=== PATIENT | male | born 1950 | race Caucasian/White ===

== ENCOUNTER 2021-08-04 14:28 | Inpatient (IN) ==
[2021-08-04] MEDS ORDERED: SOLU-Medrol 125 MG VIAL IVP ONE (14:54)
[2021-08-04] MEDS ORDERED: DUONEB 0.5 MG/3 MG (3 mL) NEB ONE ×2 (14:54→15:20)
--- NOTE | 2021-08-04 14:58 | DR.SOBA ---
HPI Time Seen Time Seen by Provider: 08/04/21 14:45 HPI Comment HPI Comment: PATIENT IS 71YR OLD MALE IN ER WITH INCREASING SOB ESPECIALLY ON EXERTION TIMES 3 DAYS. HE IS POSITIVE FOR COVID 19 VIRUS AND HAVE RECEIVED REGEN-COV 2 DAYS AGO. HE CONTINUE TO HAVE INCREASING SYMPTOMS. NO FEVER. COUGHING WITH SMALL AMOUNT OF SPUTUM. PATIENT IS ON PREDNISONE AND ANTIBIOTICS CURRENTLY. Complaints Chief Complaint Doctors Comments: INCREASING SOB TIMES 3 DAYS. COVID POSITIVE. COVID-19 Coronavirus risk:travel/contact w/high risk person: No Has patient experienced Coronavirus symptoms: Yes Coronavirus symptoms experienced: Shortness of Breath Reviewed Nurses Notes Reviewed: Yes Source History Provided: Patient and Family Member Mode of Arrival Mode of Arrival: Ambulatory Timing Onset of Chief Complaint: 08/01/21 Duration Duration: Days Context Onset:: At Rest PE Risk Factors:: None History of:: None Currently on:: Neither Modifying Factors Worsens:: Exertion Improves:: Rest Associated Signs and Symptoms Associated Signs and Symptoms: Cough If Cough Cough: Nonproductive PMH PMH Past Surgical History: Yes Surgical History: Ortho Surgery ROS Review of Systems Constitutional: See HPI, Weakness and Fatigue; negative Fever Eyes: No Symptoms Reported and See HPI ENTM: See HPI; negative Nose Discharge and Nose Congestion Respiratoy: See HPI, Non-Productive Cough and Short of Breath; negative Wheezing Cardiovascular: See HPI and Chest Pain; negative Edema Gastrointestinal/Abdominal: No Symptoms Reported and See HPI; negative Abdominal Pain, Diarrhea and Vomiting Genitourinary: No Symptoms Reported and See HPI; negative Dysuria, Frequency and Hematuria Neurological: Headache and Weakness; negative Dizziness Musculoskeletal: No Symptoms Reported and See HPI; negative Back Pain and Muscle Pain Integumentary: No Symptoms Reported and See HPI; negative Change in Color, Rash and Juandice Hematologic/Lymphatic: No Symptoms Reported; negative Easy Bruising Endocrine: No Symptoms Reported; negative Increased Thirst and Increased Urine Psychiatric: No Symptoms Reported and See HPI All Other Systems: Reviewed and Negative PE Vital Signs Vitals: Temperature 97.5 F Pulse Rate 78 Respiratory Rate 26 Blood Pressure [Right Arm] 129/69 Blood Pressure 141/73 O2 Sat by Pulse Oximetry 98 General Limitations: No Limitations General Appearance: Alert and In Distress Head Head Exam: Normal Inspection Eyes Eye exam: Normal Appearance and PERRL; negative Scleral Icterus and Conjunctival Injection ENT ENT Exam: Normal Exam, Normal External Ear Exam and TM's Normal Bilaterally Neck Neck Exam: Normal Inspection and Trachea Midline; negative Tenderness and Lymphadenopathy Chest Chest Inspection: Normal Inspection and Symmetric Chest Wall Rise; negative Tenderness Respiratory Respiratory Exam: Normal Lung Sounds Bilat and Respiratory Distress; negative Accessory Muscle Use and Chest Wall Tenderness Respiratory Exam: Bilateral: Rhonchi, Right: Crackles and Lower: Rhonchi Cardiovascular Cardiovascular Exam: Regular Rate, Normal Rhythm and Normal Heart Sounds; negative Systolic Murmur and Diastolic Murmur Abdominal Exam Abdominal Exam: Normal Inspection, Normal Bowel Sounds and Soft; negative Tenderness Extremities Extremities Exam: Normal Inspection and Normal Capillary Refill Back Back Exam: Normal Inspection; negative (R) CVA Tenderness and (L) CVA Tenderness Neurologic Neurological Exam: Alert and Oriented X3; negative Motor Sensory Deficit Psychiatric Psychiatric Exam: Normal Affect and Normal Mood Skin Skin Exam: Warm, Dry, Intact and Normal Color MDM Differential Diagnosis Differential Diagnosis: Bronchitis, Mycardial Infarction, Pneumonia, Pneumothorax, Pulmonary embolism, Respiratory Insufficiency, Sinusitis and URI COURSE Treatment Treatment: SEE ORDERS. NS IV IN ER. ZOSYN 3.375MG IV. REMDISIVIR LOADING DOSE IN ER. PATIENT ADMITTED FOR FURTHER MANAGEMENT. Education/Counseling Education/Counseling: Patient and Family Educated On: Diagnosis ROR Labs Reviewed Laboratory Results Reviewed?: Yes Result Diagrams: 08/06/21 04:50 08/06/21 04:50 Laboratory: WBC 10.6 X10^3/uL (3.6-10.0) H 08/04/21 15:20 RBC 4.87 X10^6/uL (4.7-6.0) 08/04/21 15:20 Hgb 15.0 g/dL (13.5-18.0) 08/04/21 15:20 Hct 43.9 % (42.0-54.0) 08/04/21 15:20 MCV 90.1 fL (80.0-100.0) 08/04/21 15:20 MCH 30.7 pg (27.0-34.0) 08/04/21 15:20 MCHC 34.1 g/dL (33.0-35.0) 08/04/21 15:20 RDW 13.1 % (11.6-16.5) 08/04/21 15:20 Plt Count 183 X10^3/uL (150.0-450.0) 08/04/21 15:20 MPV 9.1 fL (7.4-11.0) 08/04/21 15:20 Neut % (Auto) 87.5 % (42.0-75.0) H 08/04/21 15:20 Lymph % (Auto) 6.4 % (21.0-51.0) L 08/04/21 15:20 [place] % (Auto) 5.4 % (0.0-13.0) 08/04/21 15:20 Eos % (Auto) 0.0 % (0.9-2.9) L 08/04/21 15:20 Baso % (Auto) 0.7 % (0.2-1.0) 08/04/21 15:20 Neut # (Auto) 9.3 x10^3/uL (2.2-4.8) H 08/04/21 15:20 Lymph # (Auto) 0.7 X10^3/uL (1.3-2.9) L 08/04/21 15:20 [place] # (Auto) 0.6 x10^3/uL (0.3-0.8) 08/04/21 15:20 Eos # (Auto) 0.0 x10^3/uL (0.0-0.2) 08/04/21 15:20 Baso # (Auto) 0.1 X10^3/uL (0.0-0.1) 08/04/21 15:20 Absolute Nucleated RBC 0.1 /100WBC 08/04/21 15:20 D-Dimer 1.20 ug/ml (0.0-0.57) H* 08/04/21 15:20 Sample Site Lra 08/04/21 15:14 ABG pH 7.480 (7.35-7.45) H 08/04/21 15:14 ABG pCO2 39.0 mmHg (35.0-45.0) 08/04/21 15:14 ABG pO2 67.0 mmHg (80.0-100.0) L 08/04/21 15:14 ABG HCO3 29.0 mmol/L (22-26) H 08/04/21 15:14 ABG O2 Saturation 94.0 % (90-100) 08/04/21 15:14 ABG Base Excess 5.2 mmol/L (-2.0-2.0) H 08/04/21 15:14 Nakul Test Pos 08/04/21 15:14 A-a Gradient 34.0 mmHg 08/04/21 15:14 FiO2 21.0 08/04/21 15:14 Blood Gas Comments Pt karla well eb 08/04/21 15:14 Sodium 140 mmol/L (136-145) 08/04/21 15:20 Corrected Sodium 141 mmol/L (136-145) 08/04/21 15:20 Potassium 4.2 mmol/L (3.5-5.1) 08/04/21 15:20 Chloride 104 mmol/L (98-107) 08/04/21 15:20 Carbon Dioxide 32.5 mmol/L (21-32) H 08/04/21 15:20 BUN 17 mg/dL (7-18) 08/04/21 15:20 Creatinine 0.93 mg/dL (0.70-1.30) 08/04/21 15:20 Est GFR (MDRD) Af Amer > 60 (>60) 08/04/21 15:20 Est GFR (MDRD) Non-Af > 60 (>60) 08/04/21 15:20 Glucose 158 mg/dL (65-99) H 08/04/21 15:20 Calcium 8.8 mg/dL (8.5-10.1) 08/04/21 15:20 Corrected Calcium 9.4 mg/dL (8.5-10.1) 08/04/21 15:20 Ferritin 2766 ng/mL (26-388) H 08/04/21 15:20 Total Bilirubin 1.20 mg/dL (0.2-1.0) H 08/04/21 15:20 AST 176 Units/L (15-37) H 08/04/21 15:20 ALT 159 Units/L (12-78) H 08/04/21 15:20 Alkaline Phosphatase 78 Units/L (46-116) 08/04/21 15:20 Creatine Kinase 167 Units/L (39-308) 08/04/21 15:20 CK-MB (CK-2) 2.0 ng/mL (0-4.0) 08/04/21 15:20 CK/CKMB % Calc 1.2 % (<4) 08/04/21 15:20 Troponin I < 0.02 ng/mL (0-1.5) 08/04/21 15:20 C-Reactive Protein 11.30 mg/L (0-3.0) H 08/04/21 15:20 B-Natriuretic Peptide 63.4 pg/mL (0-79) 08/04/21 15:20 Total Protein 7.4 g/dL (6.4-8.2) 08/04/21 15:20 Albumin 3.2 g/dL (3.4-5.0) L 08/04/21 15:20 Globulin 4.2 g/dL (2.5-4.5) 08/04/21 15:20 Albumin/Globulin Ratio 0.8 Ratio (1.1-2.1) L 08/04/21 15:20 XRAY XRAY Interpreted by: Radiologist (REPORTS NOTED AND DISCUSSED WITH PATIENT AND SON.) and Self EKG Rate: 60 [place]: Normal Rhythm: NSR Block: None Hypertrophy: None ST: Old, Ant, Lat and Infarct Opioid Opioid Risk Tool Age (James box if 16-45): No History of Preadolescent Sexual Abuse: No Total: 0 Total Score Risk Category: Low Risk Copyright: [facility] predicting aberrant behaviors Diagnosis Discharge Problem: Acute respiratory distress, COVID-19 virus infection Pneumonia Qualifiers: Pneumonia type: due to unspecified organism Laterality: bilateral Lung location: lower lobe of lung Qualified Code(s): J18.9 - Pneumonia, unspecified organism
[2021-08-04] MEDS ORDERED: SOLU-Medrol 125 MG VIAL ONE (15:12)
[2021-08-04 15:16] LABS: ABG BASE EXCESS 5.2 mmol/L (-2.0-2.0)
[2021-08-04 15:17] LABS: ABG ALLEN TEST POS
--- NOTE | 2021-08-04 15:21 | RAD ---
HISTORYCOVID and pneumonia 2-3 days ago, got the antibody infusion the next day, was put on PO abx and steroids, but is not feeling any better, reports feeling weak and gets very sob on any exertion. Also dysphagia Relevant Clinical InformationSTUDYCHEST, 1 VIEWCOMPARISONSeptember 2020.FINDINGSThere is stable to mildly increased bilateral periphery and inferior pulmonary opacities concerning for infection. Cardiomegaly is stable. There is interstitial edema. No pneumothorax is seen..IMPRESSIONStable to mildly increased bilateral pulmonary opacities.Electronically signed by: HOUSTON NORWOOD (Aug 04, 2021 15:21:38)
[2021-08-04 15:34] LABS: BASOPHILS # (AUTO) 0.1 X10^3/uL (0.0-0.1); BASOPHILS % (AUTO) 0.7 % (0.2-1.0); HEMATOCRIT 43.9 % (42.0-54.0); LYMPHOCYTES # (AUTO) 0.7 X10^3/uL (1.3-2.9); LYMPHOCYTES % (AUTO) 6.4 % (21.0-51.0); MEAN CORPUSCULAR HEMOGLOBIN 30.7 pg (27.0-34.0); MEAN CORPUSCULAR HGB CONC 34.1 g/dL (33.0-35.0); MEAN CORPUSCULAR VOLUME 90.1 fL (80.0-100.0); MEAN PLATELET VOLUME 9.1 fL (7.4-11.0); MONOCYTES # (AUTO) 0.6 x10^3/uL (0.3-0.8); MONOCYTES % (AUTO) 5.4 % (0.0-13.0); NEUTROPHILS # (AUTO) 9.3 x10^3/uL (2.2-4.8); NEUTROPHILS % (AUTO) 87.5 % (42.0-75.0); PLATELET COUNT 183 X10^3/uL (150.0-450.0); RED BLOOD COUNT 4.87 X10^6/uL (4.7-6.0); RED CELL DISTRIBUTION WIDTH 13.1 % (11.6-16.5); WHITE BLOOD COUNT 10.6 X10^3/uL (3.6-10.0)
[2021-08-04 15:58] LABS: ALANINE AMINOTRANSFERASE 159 Units/L (12-78); ALBUMIN 3.2 g/dL (3.4-5.0); ALKALINE PHOSPHATASE 78 Units/L (46-116); ASPARTATE AMINO TRANSFERASE 176 Units/L (15-37); BLOOD UREA NITROGEN 17 mg/dL (7-18); CALCIUM 8.8 mg/dL (8.5-10.1); CARBON DIOXIDE 32.5 mmol/L (21-32); CHLORIDE 104 mmol/L (98-107); CKMB % 1.2 % (<4); COR CA(FOR HYPOALB) 9.4 mg/dL (8.5-10.1); COR NA(FOR HYPERGLY) 141 mmol/L (136-145); CREATINE KINASE 167 Units/L (39-308); CREATININE 0.93 mg/dL (0.70-1.30); SODIUM 140 mmol/L (136-145); TOTAL PROTEIN 7.4 g/dL (6.4-8.2); TROPONIN I < 0.02 ng/mL (0-1.5); eGFR NON BLACK RACES > 60 (>60)
[2021-08-04] MEDS ORDERED: NS 100 ML IV 100 ML ONE (16:28)
--- NOTE | 2021-08-04 18:55 | CT ---
HISTORYPt was dx with COVID and pneumonia 2-3 days ago, got the antibody infusion the next day, was put on PO abx and steroids, but is not feeling any better.STUDYCTA CHESTCOMPARISONChest radiograph 08/04/2021TECHNIQUEMultiple CT axial images of the chest were obtained with IV contrast. Coronal and sagittal images were reconstructed. 3D reconstructions using axial MIPS imaging was performed and reviewed. Dose reduction techniques included Automated Exposure Control (AEC) and adjustment of mA and kV.Stenoses are measured using NASCET criteria.FINDINGSPulmonary arteries are identified to segmental branches. There are no pulmonary emboli.Cardiomegaly is present.Atherosclerotic calcifications are present in the coronary arteries. The pulmonary artery and aorta have a normal caliber. Mediastinal lymphadenopathy is increased in number. Probably reactive from the patient's lung disease.The thyroid has a normal size and configuration. No axillary mass or significant axillary lymphadenopathy is identified.Bilateral patchy and some confluent areas of ground-glass opacity are present typical for bronchopneumonia. No pleural effusion or pneumothorax.Calcified gallstones are present with no inflammation.Degenerative changes are present in the spine.IMPRESSION1. No pulmonary emboli2. Bronchopneumonia with reactive mediastinal lymphadenopathy3. Cardiomegaly with CAD4. CholelithiasisElectronically signed by: Perico Quintero (Aug 04, 2021 18:53:39)
[2021-08-04] MEDS ORDERED: ZOSYN VIAL 3.375 GRAMS 3.375 G in NS 50 ML IV + SPIKE MINIBAG* 50 ML IV ONE (19:23)
[2021-08-04] MEDS ORDERED: ZOSYN VIAL 3.375 GRAMS IV ONE (19:37)
[2021-08-04] MEDS ORDERED: NS 50 ML IV + SPIKE MINIBAG* 50 ML IV ONE (19:37)
[2021-08-04] MEDS ORDERED: REMDESIVIR 200 MG in NS 250 ML IV 250 ML IV ONE (23:02)
[2021-08-04] MEDS: NS 1000 ML 1,000 ML IV SCH (23:46)
[2021-08-05] MEDS: ASCORBIC ACID INJ MULTI-DOSE VIAL 1,500 MG in NS 100 ML IV 100 ML IV SCH ×4 (04:50→20:25)
[2021-08-05 05:15] LABS: BASOPHILS % (AUTO) 0.6 % (0.2-1.0); HEMATOCRIT 38.2 % (42.0-54.0); HEMOGLOBIN 13.1 g/dL (13.5-18.0); LYMPHOCYTES # (AUTO) 0.7 X10^3/uL (1.3-2.9); LYMPHOCYTES % (AUTO) 11.6 % (21.0-51.0); MEAN CORPUSCULAR HEMOGLOBIN 30.6 pg (27.0-34.0); MEAN CORPUSCULAR HGB CONC 34.4 g/dL (33.0-35.0); MEAN CORPUSCULAR VOLUME 89.1 fL (80.0-100.0); MONOCYTES # (AUTO) 0.6 x10^3/uL (0.3-0.8); MONOCYTES % (AUTO) 8.8 % (0.0-13.0); NEUTROPHILS # (AUTO) 5.1 x10^3/uL (2.2-4.8); PLATELET COUNT 176 X10^3/uL (150.0-450.0); RED BLOOD COUNT 4.29 X10^6/uL (4.7-6.0); RED CELL DISTRIBUTION WIDTH 13.1 % (11.6-16.5); WHITE BLOOD COUNT 6.4 X10^3/uL (3.6-10.0)
[2021-08-05 05:32] LABS: ALANINE AMINOTRANSFERASE 139 Units/L (12-78); ALBUMIN 2.6 g/dL (3.4-5.0); ALKALINE PHOSPHATASE 66 Units/L (46-116); ASPARTATE AMINO TRANSFERASE 94 Units/L (15-37); BLOOD UREA NITROGEN 16 mg/dL (7-18); CALCIUM 8.3 mg/dL (8.5-10.1); CARBON DIOXIDE 26.7 mmol/L (21-32); CHLORIDE 106 mmol/L (98-107); COR CA(FOR HYPOALB) 9.4 mg/dL (8.5-10.1); COR NA(FOR HYPERGLY) 142 mmol/L (136-145); CREATININE 1.04 mg/dL (0.70-1.30); SODIUM 140 mmol/L (136-145); TOTAL PROTEIN 6.2 g/dL (6.4-8.2); eGFR NON BLACK RACES > 60 (>60)
[2021-08-05] MEDS: SOLU-Medrol 40 MG VIAL IVP SCH ×3 (06:34→22:15)
[2021-08-05] MEDS: ZOSYN VIAL 3.375 GRAMS 3.375 G in NS 50 ML IV + SPIKE MINIBAG* 50 ML IV SCH ×3 (06:34→22:15)
[2021-08-05] MEDS ORDERED: BROVANA ONE (08:48)
[2021-08-05] MEDS ORDERED: PULMICORT NEB TX 0.5 MG NEB ONE (08:48)
[2021-08-05] MEDS ORDERED: BROVANA IN SCH (09:00)
[2021-08-05] MEDS ORDERED: VITAMIN A PO SCH (09:00)
[2021-08-05] MEDS ORDERED: PULMICORT NEB TX 0.5 MG NEB SCH (09:00)
[2021-08-05] MEDS ORDERED: VITAMIN D (1.25MG) PO SCH (09:00)
[2021-08-05] MEDS: LOVENOX INJ 30 MG SYR SC SCH ×2 (09:06→20:26)
[2021-08-05] MEDS: ZINC SULFATE PO SCH ×2 (09:07→20:31)
[2021-08-05] MEDS: PEPCID TAB 40 MG PO SCH ×2 (09:09→20:27)
[2021-08-05] MEDS: TRICOR TAB 160 MG PO SCH (09:09)
[2021-08-05] MEDS: NORVASC TAB 5 MG PO SCH (09:09)
[2021-08-05] MEDS: BROVANA IN SCH ×2 (09:33→21:00)
[2021-08-05] MEDS: PULMICORT NEB TX 0.5 MG NEB SCH ×2 (09:33→21:00)
[2021-08-05] MEDS: ROBITUSSIN DM PO SCH ×4 (09:45→20:31)
[2021-08-05] MEDS: TUSSIONEX PENNKINETIC SUSP PO PRN (11:25)
--- NOTE | 2021-08-05 13:55 | DR.H&P ---
H&P - History & Physical for Day of: H&P Date: 08/04/21 - Chief Complaint Chief Complaint: COVID 19+, SOB, COUGHING AND WEAKNESS - History of Present Illness History of Present Illness: PT IS 71 WM ER ADMISSION AFTER PRESENTING WITH CO SOB, COVID 19+. PT HAS BEEN SICK FOR ~1 WEEK. PT HAS BEEN ON PO STEROIDS AND LEVAQUIN FOR 5 DAYS. PT HAD REGENCOV INFUSION LAST WednesdayAUG 01. PT HAS PMH OF HTN, PT DENIES ANY KNOWN CAD. PT ADMITTED FOR TREATMENT OF ACUTE ILLNESS. - Past Medical History Past Medical History: Arthritis, Hypertension - Past Surgical History Surgical History: Ortho Surgery - Family History Family Medical History: Diabetes Mellitus, [place], Hypertension - Social History Does patient currently use any type of tobacco product: Yes Have you used tobacco products in the last 12 months: No Type of Tobacco Use: Smokeless Alcohol Use: None Drug Use: None - Medications Home Medications: No Known Drug Allergies Allergy (Verified 08/04/21 14:38) CONTINUE taking the following medications amlodipine 5 mg PO DAILY 08/04/21 [History] - Review of Systems Constitutional: Fever, Chills, Weakness, Malaise Eyes: No Symptoms Reported ENT: Nose Congestion, Throat Pain Respiratory: Shortness of Breath, SOB with Excertion, Wheezing Cardiovascular: Chest Pain Gastrointestinal: Nausea Genitourinary: No Symptoms Reported Musculoskeletal: Back Pain, Leg Pain Skin: No Symptoms Reported Neurological: Weakness - Physical Exam Vital Signs: Temperature 98.1 F Pulse Rate [Left Radial] 64 Pulse Rate 79 Respiratory Rate 18 Blood Pressure [Left Arm] 140/72 Blood Pressure [Right Arm] 129/69 Blood Pressure 153/70 O2 Sat by Pulse Oximetry 97 Oriented: Normal Eyes: Normal Ear: Normal Nose: Normal Throat: Normal Respiratory: Wheezes Throughout, RLL Diminished, LLL Diminished Cardiovascular: Normal, Edema : Normal Auscultation: Bowel Sounds: Normal Palpation: Normal Tenderness: Epigastric, Mild Skin: Decreased Turgur Musculoskeletal: Right, Left, Hip, Back:Thoracic, Back:Lumbar, Tender Psychiatric: Anxiety Affect: Anxious Speech Pattern: Clear, Appropriate - Assessment/Plan (1) Acute hypoxemic respiratory failure due to COVID-19 Status: Acute Plan: ADMIT, IV REMDESIVIR. IV SOLU MEDROL, IV ATBX. IV HYDRATION, CARIDAC MONITORING. BP CONTROL, PPI THERAPY. LOVENOX DVT PREVENTION. AM CXR AND ABG, SUPPLMENTAL O2, DUO NEBS (2) Hypertension Status: Acute (3) Arthritis Status: Acute (4) Pneumonia due to COVID-19 virus Status: Acute - Allergies Allergies/Adverse Reactions: Allergies Allergy/AdvReac Type Severity Reaction Status Date / Time No Known Drug Allergies Allergy Verified 08/04/21 14:38
[2021-08-05] MEDS: PROTONIX INJ 40 MG VIAL IVP SCH ×2 (15:12→20:28)
[2021-08-05] MEDS: LEVAQUIN PREMIX IV 500 MG 500 MG/100 ML BAG IV SCH (18:18)
[2021-08-05] MEDS: REMDESIVIR 100 MG in NS 100 ML IV + SPIKE MINIBAG* 120 ML IV SCH (20:29)
[2021-08-05] MEDS: NS 1000 ML 1,000 ML IV SCH (23:41)
[2021-08-06] MEDS: TUSSIONEX PENNKINETIC SUSP PO PRN
[2021-08-06] MEDS: ASCORBIC ACID INJ MULTI-DOSE VIAL 1,500 MG in NS 100 ML IV 100 ML IV SCH ×4 (02:26→20:34)
[2021-08-06 05:15] LABS: BASOPHILS % (AUTO) 0.4 % (0.2-1.0); HEMATOCRIT 36.5 % (42.0-54.0); HEMOGLOBIN 12.7 g/dL (13.5-18.0); LYMPHOCYTES # (AUTO) 0.7 X10^3/uL (1.3-2.9); LYMPHOCYTES % (AUTO) 8.9 % (21.0-51.0); MEAN CORPUSCULAR HEMOGLOBIN 30.9 pg (27.0-34.0); MEAN CORPUSCULAR HGB CONC 34.7 g/dL (33.0-35.0); MEAN CORPUSCULAR VOLUME 88.9 fL (80.0-100.0); MEAN PLATELET VOLUME 9.1 fL (7.4-11.0); MONOCYTES # (AUTO) 0.5 x10^3/uL (0.3-0.8); MONOCYTES % (AUTO) 7.2 % (0.0-13.0); NEUTROPHILS # (AUTO) 6.2 x10^3/uL (2.2-4.8); NEUTROPHILS % (AUTO) 83.5 % (42.0-75.0); PLATELET COUNT 195 X10^3/uL (150.0-450.0); RED CELL DISTRIBUTION WIDTH 13.1 % (11.6-16.5); WHITE BLOOD COUNT 7.4 X10^3/uL (3.6-10.0)
[2021-08-06] MEDS: SOLU-Medrol 40 MG VIAL IVP SCH ×3 (05:32→22:16)
[2021-08-06 05:34] LABS: ALANINE AMINOTRANSFERASE 166 Units/L (12-78); ALBUMIN 2.5 g/dL (3.4-5.0); ALKALINE PHOSPHATASE 64 Units/L (46-116); ASPARTATE AMINO TRANSFERASE 82 Units/L (15-37); BLOOD UREA NITROGEN 16 mg/dL (7-18); CALCIUM 8.2 mg/dL (8.5-10.1); CARBON DIOXIDE 26.6 mmol/L (21-32); CHLORIDE 105 mmol/L (98-107); COR CA(FOR HYPOALB) 9.4 mg/dL (8.5-10.1); COR NA(FOR HYPERGLY) 141 mmol/L (136-145); CREATININE 1.05 mg/dL (0.70-1.30); SODIUM 139 mmol/L (136-145); eGFR NON BLACK RACES > 60 (>60)
[2021-08-06 05:37] LABS: ABG ALLEN TEST POS; ABG BASE EXCESS 3.5 mmol/L (-2.0-2.0); ABG HCO3 27.8 mmol/L (22-26)
[2021-08-06] MEDS: ZOSYN VIAL 3.375 GRAMS 3.375 G in NS 50 ML IV + SPIKE MINIBAG* 50 ML IV SCH ×3 (05:54→22:16)
--- NOTE | 2021-08-06 06:05 | RAD ---
HISTORYCOVID-19 pneumoniaSTUDYAP [id number]/04/2021FINDINGSMild stable cardiomegaly. Persistent and slightly increasing bilateral airspace involvement with no evidence for complicating pneumothorax or pleural effusion.IMPRESSIONSlight interval progression of bilateral pneumonia.Electronically signed by: MALLORIE CUTLER (Aug 06, 2021 06:03:12)
[2021-08-06] MEDS ORDERED: LASIX IVP ONE (08:29)
[2021-08-06] MEDS: LEVAQUIN PREMIX IV 500 MG 500 MG/100 ML BAG IV SCH (08:29)
[2021-08-06] MEDS: PEPCID TAB 40 MG PO SCH ×2 (08:30→20:36)
[2021-08-06] MEDS: NORVASC TAB 5 MG PO SCH (08:30)
[2021-08-06] MEDS: PROTONIX INJ 40 MG VIAL IVP SCH ×2 (08:30→20:38)
[2021-08-06] MEDS: TRICOR TAB 160 MG PO SCH (08:31)
[2021-08-06] MEDS: ROBITUSSIN DM PO SCH ×4 (08:31→20:39)
[2021-08-06] MEDS: VITAMIN D3 125 mcg (5,000 UNITS) PO SCH (08:32)
[2021-08-06] MEDS: ZINC SULFATE PO SCH ×2 (08:32→20:40)
[2021-08-06] MEDS: LOVENOX INJ 30 MG SYR SC SCH ×2 (08:33→20:35)
[2021-08-06] MEDS ORDERED: K-DUR TAB 20 MEQ PO ONE (08:35)
[2021-08-06] MEDS: K-DUR TAB 20 MEQ PO SCH (08:36)
[2021-08-06] MEDS ORDERED: VITAMIN A PO SCH (09:00)
[2021-08-06] MEDS: BROVANA IN SCH ×2 (09:36→21:26)
[2021-08-06] MEDS: PULMICORT NEB TX 0.5 MG NEB SCH ×2 (09:36→21:25)
[2021-08-06] MEDS: REMDESIVIR 100 MG in NS 100 ML IV + SPIKE MINIBAG* 120 ML IV SCH (20:39)
[2021-08-07] MEDS: NS 1000 ML 1,000 ML IV SCH (02:19)
[2021-08-07] MEDS: ASCORBIC ACID INJ MULTI-DOSE VIAL 1,500 MG in NS 100 ML IV 100 ML IV SCH ×4 (02:21→21:36)
[2021-08-07] MEDS: SOLU-Medrol 40 MG VIAL IVP SCH ×3 (05:11→21:41)
[2021-08-07] MEDS: ZOSYN VIAL 3.375 GRAMS 3.375 G in NS 50 ML IV + SPIKE MINIBAG* 50 ML IV SCH ×3 (05:12→22:30)
[2021-08-07 05:16] LABS: BASOPHILS % (AUTO) 0.2 % (0.2-1.0); HEMATOCRIT 36.5 % (42.0-54.0); HEMOGLOBIN 12.6 g/dL (13.5-18.0); LYMPHOCYTES # (AUTO) 0.6 X10^3/uL (1.3-2.9); LYMPHOCYTES % (AUTO) 5.8 % (21.0-51.0); MEAN CORPUSCULAR HEMOGLOBIN 30.7 pg (27.0-34.0); MEAN CORPUSCULAR HGB CONC 34.7 g/dL (33.0-35.0); MEAN CORPUSCULAR VOLUME 88.6 fL (80.0-100.0); MEAN PLATELET VOLUME 8.9 fL (7.4-11.0); MONOCYTES # (AUTO) 0.7 x10^3/uL (0.3-0.8); MONOCYTES % (AUTO) 6.4 % (0.0-13.0); NEUTROPHILS # (AUTO) 9.2 x10^3/uL (2.2-4.8); NEUTROPHILS % (AUTO) 87.6 % (42.0-75.0); PLATELET COUNT 229 X10^3/uL (150.0-450.0); RED BLOOD COUNT 4.12 X10^6/uL (4.7-6.0); RED CELL DISTRIBUTION WIDTH 13.1 % (11.6-16.5); WHITE BLOOD COUNT 10.5 X10^3/uL (3.6-10.0)
[2021-08-07 05:35] LABS: ALANINE AMINOTRANSFERASE 159 Units/L (12-78); ALBUMIN 2.4 g/dL (3.4-5.0); ALKALINE PHOSPHATASE 61 Units/L (46-116); ASPARTATE AMINO TRANSFERASE 62 Units/L (15-37); BLOOD UREA NITROGEN 20 mg/dL (7-18); CARBON DIOXIDE 29.7 mmol/L (21-32); CHLORIDE 104 mmol/L (98-107); COR CA(FOR HYPOALB) 9.3 mg/dL (8.5-10.1); COR NA(FOR HYPERGLY) 144 mmol/L (136-145); SODIUM 140 mmol/L (136-145); TOTAL PROTEIN 5.6 g/dL (6.4-8.2); eGFR NON BLACK RACES 58 (>60)
[2021-08-07 09:20] LABS: ABG BASE EXCESS 8.8 mmol/L (-2.0-2.0)
[2021-08-07 09:21] LABS: ABG ALLEN TEST POS; ABG HCO3 32.7 mmol/L (22-26)
[2021-08-07] MEDS: BROVANA IN SCH ×2 (09:32→20:49)
[2021-08-07] MEDS: PULMICORT NEB TX 0.5 MG NEB SCH ×2 (09:32→20:49)
[2021-08-07] MEDS: LOVENOX INJ 30 MG SYR SC SCH ×2 (09:34→21:36)
[2021-08-07] MEDS: K-DUR TAB 20 MEQ PO SCH (09:34)
[2021-08-07] MEDS: LEVAQUIN PREMIX IV 500 MG 500 MG/100 ML BAG IV SCH (09:34)
[2021-08-07] MEDS: NORVASC TAB 5 MG PO SCH (09:35)
[2021-08-07] MEDS: ROBITUSSIN DM PO SCH ×4 (09:36→21:40)
[2021-08-07] MEDS: VITAMIN D3 125 mcg (5,000 UNITS) PO SCH (09:36)
[2021-08-07] MEDS: TRICOR TAB 160 MG PO SCH (09:36)
[2021-08-07] MEDS: PROTONIX INJ 40 MG VIAL IVP SCH ×2 (09:36→21:39)
[2021-08-07] MEDS: PEPCID TAB 40 MG PO SCH ×2 (09:36→21:38)
[2021-08-07] MEDS: ZINC SULFATE PO SCH ×2 (09:37→21:40)
--- NOTE | 2021-08-07 12:12 | RAD ---
HISTORYCOVID 19 PNEUMONIASTUDYCHEST x-ray, 1 VIEWCOMPARISONX-ray 08/06/2021FINDINGSBilateral pneumonia is similar to prior study. Probable cardiomegaly is seen and there may be mild CHF. Small pleural effusions are suspected. No pneumothorax is seen.IMPRESSIONAppearance of the chest is unchanged.Electronically signed by: Jimmy Martinez (Aug 07, 2021 12:10:59)
[2021-08-07] MEDS: SNACK - Diabetic Appropriate PO SCH (21:35)
[2021-08-07] MEDS: HumuLIN R SUBCUT PRN (21:37)
[2021-08-07] MEDS: REMDESIVIR 100 MG in NS 100 ML IV + SPIKE MINIBAG* 120 ML IV SCH (21:40)
[2021-08-08] MEDS: NS 1000 ML 1,000 ML IV SCH
[2021-08-08] MEDS: ASCORBIC ACID INJ MULTI-DOSE VIAL 1,500 MG in NS 100 ML IV 100 ML IV SCH ×4 (03:30→20:58)
[2021-08-08 05:12] LABS: ABG ALLEN TEST pos; ABG BASE EXCESS 9.5 mmol/L (-2.0-2.0); ABG HCO3 34.3 mmol/L (22-26)
[2021-08-08] MEDS: SOLU-Medrol 40 MG VIAL IVP SCH ×3 (05:12→22:16)
[2021-08-08 05:14] LABS: ALANINE AMINOTRANSFERASE 191 Units/L (12-78); ALBUMIN 2.4 g/dL (3.4-5.0); ALKALINE PHOSPHATASE 63 Units/L (46-116); ASPARTATE AMINO TRANSFERASE 71 Units/L (15-37); BLOOD UREA NITROGEN 20 mg/dL (7-18); CALCIUM 8.1 mg/dL (8.5-10.1); CARBON DIOXIDE 29.9 mmol/L (21-32); CHLORIDE 105 mmol/L (98-107); COR CA(FOR HYPOALB) 9.4 mg/dL (8.5-10.1); COR NA(FOR HYPERGLY) 144 mmol/L (136-145); CREATININE 1.14 mg/dL (0.70-1.30); SODIUM 141 mmol/L (136-145); TOTAL PROTEIN 5.7 g/dL (6.4-8.2); eGFR NON BLACK RACES > 60 (>60)
[2021-08-08] MEDS: ZOSYN VIAL 3.375 GRAMS 3.375 G in NS 50 ML IV + SPIKE MINIBAG* 50 ML IV SCH ×3 (05:15→22:16)
[2021-08-08 05:20] LABS: BASOPHILS % (AUTO) 0.1 % (0.2-1.0); HEMATOCRIT 36.9 % (42.0-54.0); LYMPHOCYTES # (AUTO) 0.6 X10^3/uL (1.3-2.9); LYMPHOCYTES % (AUTO) 5.2 % (21.0-51.0); MEAN CORPUSCULAR HEMOGLOBIN 31.1 pg (27.0-34.0); MEAN CORPUSCULAR HGB CONC 35.1 g/dL (33.0-35.0); MEAN CORPUSCULAR VOLUME 88.6 fL (80.0-100.0); MEAN PLATELET VOLUME 9.1 fL (7.4-11.0); MONOCYTES # (AUTO) 0.7 x10^3/uL (0.3-0.8); MONOCYTES % (AUTO) 6.9 % (0.0-13.0); NEUTROPHILS # (AUTO) 9.3 x10^3/uL (2.2-4.8); NEUTROPHILS % (AUTO) 87.8 % (42.0-75.0); PLATELET COUNT 242 X10^3/uL (150.0-450.0); RED BLOOD COUNT 4.17 X10^6/uL (4.7-6.0); RED CELL DISTRIBUTION WIDTH 12.8 % (11.6-16.5); WHITE BLOOD COUNT 10.6 X10^3/uL (3.6-10.0)
--- NOTE | 2021-08-08 06:13 | RAD ---
HISTORYCOVID-19 pneumoniaSTUDYAP [id number]/07/2021FINDINGSStable normal heart size. There is no change in extent or distribution of bilateral areas of airspace consolidation. No additional involvement, pleural fluid or pneumothorax identified.IMPRESSIONNo change in appearance of bilateral pneumonia.Electronically signed by: MALLORIE CUTLER (Aug 08, 2021 06:11:24)
[2021-08-08] MEDS: HumuLIN R SUBCUT PRN ×4 (06:37→20:58)
[2021-08-08] MEDS ORDERED: NS 100 ML IV 100 ML ONE (10:05)
[2021-08-08] MEDS: K-DUR TAB 20 MEQ PO SCH (10:10)
[2021-08-08] MEDS: LEVAQUIN PREMIX IV 500 MG 500 MG/100 ML BAG IV SCH (10:10)
[2021-08-08] MEDS: LOVENOX INJ 30 MG SYR SC SCH ×2 (10:10→20:58)
[2021-08-08] MEDS: PEPCID TAB 40 MG PO SCH ×2 (10:11→20:59)
[2021-08-08] MEDS: NORVASC TAB 5 MG PO SCH (10:11)
[2021-08-08] MEDS: PROTONIX INJ 40 MG VIAL IVP SCH ×2 (10:11→20:59)
[2021-08-08] MEDS: VITAMIN D3 125 mcg (5,000 UNITS) PO SCH (10:12)
[2021-08-08] MEDS: ROBITUSSIN DM PO SCH ×4 (10:12→21:01)
[2021-08-08] MEDS: TRICOR TAB 160 MG PO SCH (10:12)
[2021-08-08] MEDS: ZINC SULFATE PO SCH ×2 (10:12→21:01)
[2021-08-08] MEDS: PULMICORT NEB TX 0.5 MG NEB SCH ×2 (10:16→20:45)
[2021-08-08] MEDS: BROVANA IN SCH ×2 (10:16→20:45)
[2021-08-08] MEDS ORDERED: LASIX IVP NR (11:00)
[2021-08-08] MEDS: SNACK - Diabetic Appropriate PO SCH (20:56)
[2021-08-08] MEDS: REMDESIVIR 100 MG in NS 100 ML IV + SPIKE MINIBAG* 120 ML IV SCH (21:01)
[2021-08-09] MEDS: NS 1000 ML 1,000 ML IV SCH (02:51)
[2021-08-09] MEDS: ASCORBIC ACID INJ MULTI-DOSE VIAL 1,500 MG in NS 100 ML IV 100 ML IV SCH ×4 (03:08→21:00)
[2021-08-09 05:11] LABS: ABG ALLEN TEST POS; ABG BASE EXCESS 13.1 mmol/L (-2.0-2.0); ABG HCO3 37.6 mmol/L (22-26)
[2021-08-09 05:37] LABS: ALANINE AMINOTRANSFERASE 148 Units/L (12-78); ALBUMIN 2.3 g/dL (3.4-5.0); ALKALINE PHOSPHATASE 61 Units/L (46-116); ASPARTATE AMINO TRANSFERASE 36 Units/L (15-37); BLOOD UREA NITROGEN 25 mg/dL (7-18); CALCIUM 8.2 mg/dL (8.5-10.1); CHLORIDE 104 mmol/L (98-107); COR CA(FOR HYPOALB) 9.6 mg/dL (8.5-10.1); COR NA(FOR HYPERGLY) 145 mmol/L (136-145); CREATININE 1.21 mg/dL (0.70-1.30); SODIUM 141 mmol/L (136-145); TOTAL PROTEIN 5.5 g/dL (6.4-8.2); eGFR NON BLACK RACES > 60 (>60)
[2021-08-09 05:43] LABS: BASOPHILS % (AUTO) 0.3 % (0.2-1.0); HEMATOCRIT 38.5 % (42.0-54.0); HEMOGLOBIN 12.9 g/dL (13.5-18.0); LYMPHOCYTES # (AUTO) 0.5 X10^3/uL (1.3-2.9); LYMPHOCYTES % (AUTO) 4.5 % (21.0-51.0); MEAN CORPUSCULAR HGB CONC 33.4 g/dL (33.0-35.0); MEAN CORPUSCULAR VOLUME 89.9 fL (80.0-100.0); MEAN PLATELET VOLUME 9.2 fL (7.4-11.0); MONOCYTES # (AUTO) 0.5 x10^3/uL (0.3-0.8); MONOCYTES % (AUTO) 4.6 % (0.0-13.0); NEUTROPHILS # (AUTO) 10.1 x10^3/uL (2.2-4.8); NEUTROPHILS % (AUTO) 90.6 % (42.0-75.0); PLATELET COUNT 232 X10^3/uL (150.0-450.0); RED BLOOD COUNT 4.28 X10^6/uL (4.7-6.0); WHITE BLOOD COUNT 11.2 X10^3/uL (3.6-10.0)
[2021-08-09] MEDS: SOLU-Medrol 40 MG VIAL IVP SCH ×3 (05:43→21:15)
[2021-08-09] MEDS: ZOSYN VIAL 3.375 GRAMS 3.375 G in NS 50 ML IV + SPIKE MINIBAG* 50 ML IV SCH ×3 (05:43→21:15)
[2021-08-09] MEDS: HumuLIN R SUBCUT PRN ×4 (05:55→21:16)
[2021-08-09 06:08] LABS: BAND NEUTROPHILS % 3 % (0-10); PLATELET MORPHOLOGY COMMENT NORMAL (NORMAL)
--- NOTE | 2021-08-09 06:33 | RAD ---
HISTORYCOVID-19 pneumoniaSTUDYAP [id number]/08/2021FINDINGSThere is no significant change in appearance of heart or lungs. Similar distribution and extent of bilateral airspace disease with no additional consolidation, developing pneumothorax or large pleural effusion.IMPRESSIONNo change in appearance of bilateral pneumonia.Electronically signed by: MALLORIE CUTLER (Aug 09, 2021 06:29:42)
[2021-08-09] MEDS: PULMICORT NEB TX 0.5 MG NEB SCH ×2 (09:38→21:10)
[2021-08-09] MEDS: BROVANA IN SCH ×2 (09:38→21:10)
[2021-08-09] MEDS: NORVASC TAB 5 MG PO SCH (10:00)
[2021-08-09] MEDS: LEVAQUIN PREMIX IV 500 MG 500 MG/100 ML BAG IV SCH (10:00)
[2021-08-09] MEDS: K-DUR TAB 20 MEQ PO SCH (10:00)
[2021-08-09] MEDS: PEPCID TAB 40 MG PO SCH ×2 (10:00→21:15)
[2021-08-09] MEDS: VITAMIN D3 125 mcg (5,000 UNITS) PO SCH (10:01)
[2021-08-09] MEDS: PROTONIX INJ 40 MG VIAL IVP SCH ×2 (10:01→21:16)
[2021-08-09] MEDS: TRICOR TAB 160 MG PO SCH (10:01)
[2021-08-09] MEDS: ROBITUSSIN DM PO SCH ×4 (10:01→21:16)
[2021-08-09] MEDS: ZINC SULFATE PO SCH ×2 (10:02→21:15)
[2021-08-09] MEDS: LOVENOX INJ 30 MG SYR SC SCH ×2 (10:02→21:14)
--- NOTE | 2021-08-09 17:58 | PCM.PROG ---
Progress Note Progress Note for Day of Date of Exam: 08/09/21 Subjective Subjective: Patient feels more SOB today. Past Medical Family Social History Past Med/Fam/Surg Hx: No changes since H&P Allergies: Allergies No Known Drug Allergies Allergy (Verified 08/04/21 14:38) Review of Systems ROS: Changes notes (describe) ROS changes noted: SOB Vital Signs and I&O's Vital Signs: Temperature 98.8 F Pulse Rate [Left Radial] 72 Pulse Rate 62 Respiratory Rate 15 Blood Pressure [Left Arm] 110/57 Blood Pressure [Right Arm] 118/60 Blood Pressure 153/70 O2 Sat by Pulse Oximetry 91 Intake and Output: Intake & Output 08/07/21 08/08/21 08/09/21 08/10/21 11:59 11:59 11:59 11:59 Intake Total 2356 / 2356 1944 / 1944 2358 / 2358 440 / 440 Output Total 2300 / 2300 1250 / 1250 3250 / 3250 400 / 400 Balance 56 / 56 694 / 694 -892 / -892 40 / 40 Physical Exam Oriented: Normal Eyes: Normal Respiratory: Generalized and Diminished Cardiovascular: Normal and Edema Auscultation: Bowel Sounds: Normal Palpation: Normal Tenderness: Normal Skin: Decreased Turgur Musculoskeletal: Right, Left, Hip, Back:Thoracic, Back:Lumbar and Tender Psychiatric: Anxiety Affect: Anxious Speech Pattern: Clear and Appropriate Laboratory and Diagnostics Result Diagrams: 08/09/21 04:54 08/09/21 04:54 Labs: 08/06/21 09:02 Sputum - Expectorated Sputum Sputum Culture - Preliminary 08/06/21 09:02 Sputum - Expectorated Sputum - Final 08/05/21 16:03 Blood Blood Culture - Preliminary 08/05/21 16:03 Blood Blood Culture - Preliminary Laboratory WBC 11.2 X10^3/uL (3.6-10.0) H 08/09/21 04:54 RBC 4.28 X10^6/uL (4.7-6.0) L 08/09/21 04:54 Hgb 12.9 g/dL (13.5-18.0) L 08/09/21 04:54 Hct 38.5 % (42.0-54.0) L 08/09/21 04:54 MCV 89.9 fL (80.0-100.0) 08/09/21 04:54 MCH 30.0 pg (27.0-34.0) 08/09/21 04:54 MCHC 33.4 g/dL (33.0-35.0) 08/09/21 04:54 RDW 13.0 % (11.6-16.5) 08/09/21 04:54 Plt Count 232 X10^3/uL (150.0-450.0) 08/09/21 04:54 Plt Count Comment Adequate (ADEQUATE) 08/09/21 04:54 MPV 9.2 fL (7.4-11.0) 08/09/21 04:54 Neut % (Auto) 90.6 % (42.0-75.0) H 08/09/21 04:54 Lymph % (Auto) 4.5 % (21.0-51.0) L 08/09/21 04:54 [place] % (Auto) 4.6 % (0.0-13.0) 08/09/21 04:54 Eos % (Auto) 0.0 % (0.9-2.9) L 08/09/21 04:54 Baso % (Auto) 0.3 % (0.2-1.0) 08/09/21 04:54 Neut # (Auto) 10.1 x10^3/uL (2.2-4.8) H 08/09/21 04:54 Lymph # (Auto) 0.5 X10^3/uL (1.3-2.9) L 08/09/21 04:54 [place] # (Auto) 0.5 x10^3/uL (0.3-0.8) 08/09/21 04:54 Eos # (Auto) 0.0 x10^3/uL (0.0-0.2) 08/09/21 04:54 Baso # (Auto) 0.0 X10^3/uL (0.0-0.1) 08/09/21 04:54 Absolute Nucleated RBC 0.1 /100WBC 08/09/21 04:54 Total Counted 100 08/09/21 04:54 Neutrophils % (Manual) 87 % (39-76) H 08/09/21 04:54 Band Neutrophils % 3 % (0-10) 08/09/21 04:54 Lymphocytes % (Manual) 6 % (13-43) L 08/09/21 04:54 Monocytes % (Manual) 4 % (4-9) 08/09/21 04:54 Plt Morphology Comment Normal (NORMAL) 08/09/21 04:54 RBC Morphology Normal (NORMAL) 08/09/21 04:54 D-Dimer 1.20 ug/ml (0.0-0.57) H* 08/04/21 15:20 Sample Site Lrad 08/09/21 05:05 ABG pH 7.520 (7.35-7.45) H 08/09/21 05:05 ABG pCO2 46.0 mmHg (35.0-45.0) H 08/09/21 05:05 ABG pO2 68.0 mmHg (80.0-100.0) L 08/09/21 05:05 ABG HCO3 37.6 mmol/L (22-26) H* 08/09/21 05:05 ABG O2 Saturation 95.0 % (90-100) 08/09/21 05:05 ABG Base Excess 13.1 mmol/L (-2.0-2.0) H 08/09/21 05:05 Nakul Test Pos 08/09/21 05:05 A-a Gradient 103.0 mmHg 08/09/21 05:05 FiO2 32.0 08/09/21 05:05 Blood Gas Comments Cj well mts 08/09/21 05:05 Sodium 141 mmol/L (136-145) 08/09/21 04:54 Corrected Sodium 145 mmol/L (136-145) 08/09/21 04:54 Potassium 4.1 mmol/L (3.5-5.1) 08/09/21 04:54 Chloride 104 mmol/L (98-107) 08/09/21 04:54 Carbon Dioxide 33.0 mmol/L (21-32) H 08/09/21 04:54 BUN 25 mg/dL (7-18) H 08/09/21 04:54 Creatinine 1.21 mg/dL (0.70-1.30) 08/09/21 04:54 Est GFR (MDRD) Af Amer > 60 (>60) 08/09/21 04:54 Est GFR (MDRD) Non-Af > 60 (>60) 08/09/21 04:54 Glucose 254 mg/dL (65-99) H 08/09/21 04:54 POC Glucose (mg/dL) 295 mg/dL (65-99) H 08/09/21 16:42 Hemoglobin A1c 6.9 % 08/07/21 04:51 Calcium 8.2 mg/dL (8.5-10.1) L 08/09/21 04:54 Corrected Calcium 9.6 mg/dL (8.5-10.1) 08/09/21 04:54 Ferritin 2766 ng/mL (26-388) H 08/04/21 15:20 Total Bilirubin 0.70 mg/dL (0.2-1.0) 08/09/21 04:54 AST 36 Units/L (15-37) 08/09/21 04:54 ALT 148 Units/L (12-78) H 08/09/21 04:54 Alkaline Phosphatase 61 Units/L (46-116) 08/09/21 04:54 Creatine Kinase 167 Units/L (39-308) 08/04/21 15:20 CK-MB (CK-2) 2.0 ng/mL (0-4.0) 08/04/21 15:20 CK/CKMB % Calc 1.2 % (<4) 08/04/21 15:20 Troponin I < 0.02 ng/mL (0-1.5) 08/04/21 15:20 C-Reactive Protein 11.30 mg/L (0-3.0) H 08/04/21 15:20 B-Natriuretic Peptide 63.4 pg/mL (0-79) 08/04/21 15:20 Total Protein 5.5 g/dL (6.4-8.2) L 08/09/21 04:54 Albumin 2.3 g/dL (3.4-5.0) L 08/09/21 04:54 Globulin 3.2 g/dL (2.5-4.5) 08/09/21 04:54 Albumin/Globulin Ratio 0.7 Ratio (1.1-2.1) L 08/09/21 04:54 Radiology Reviewed: Yes Plan (1) Acute hypoxemic respiratory failure due to COVID-19: Status: Acute Plan: ADMIT, IV REMDESIVIR IV SOLU MEDROL, IV ATBX IV HYDRATION, CARIDAC MONITORING BP CONTROL, PPI THERAPY LOVENOX DVT PREVENTION AM CXR AND ABG, SUPPLMENTAL O2, DUO NEBS (2) Hypertension: Status: Acute Narrative Support Text: Stable. Plan: Continue to monitor BP. (3) Arthritis: Status: Acute (4) Pneumonia due to COVID-19 virus: Status: Acute
[2021-08-09] MEDS ORDERED: NS 50 ML IV + SPIKE MINIBAG* 50 ML IV ONE (21:05)
[2021-08-09] MEDS: SNACK - Diabetic Appropriate PO SCH (21:15)
[2021-08-10] MEDS: NS 1000 ML 1,000 ML IV SCH ×2 (01:01→23:23)
[2021-08-10] MEDS: ASCORBIC ACID INJ MULTI-DOSE VIAL 1,500 MG in NS 100 ML IV 100 ML IV SCH ×4 (04:00→21:26)
[2021-08-10] MEDS: SOLU-Medrol 40 MG VIAL IVP SCH ×3 (05:59→21:31)
[2021-08-10] MEDS: ZOSYN VIAL 3.375 GRAMS 3.375 G in NS 50 ML IV + SPIKE MINIBAG* 50 ML IV SCH ×3 (05:59→21:32)
[2021-08-10 06:07] LABS: BASOPHILS # (AUTO) 0.1 X10^3/uL (0.0-0.1); BASOPHILS % (AUTO) 0.4 % (0.2-1.0); HEMOGLOBIN 12.9 g/dL (13.5-18.0); LYMPHOCYTES # (AUTO) 0.5 X10^3/uL (1.3-2.9); LYMPHOCYTES % (AUTO) 3.7 % (21.0-51.0); MEAN CORPUSCULAR HEMOGLOBIN 31.1 pg (27.0-34.0); MEAN CORPUSCULAR VOLUME 88.8 fL (80.0-100.0); MEAN PLATELET VOLUME 9.2 fL (7.4-11.0); MONOCYTES # (AUTO) 0.5 x10^3/uL (0.3-0.8); MONOCYTES % (AUTO) 3.8 % (0.0-13.0); NEUTROPHILS # (AUTO) 12.6 x10^3/uL (2.2-4.8); NEUTROPHILS % (AUTO) 92.1 % (42.0-75.0); PLATELET COUNT 232 X10^3/uL (150.0-450.0); RED BLOOD COUNT 4.17 X10^6/uL (4.7-6.0); RED CELL DISTRIBUTION WIDTH 12.9 % (11.6-16.5); WHITE BLOOD COUNT 13.7 X10^3/uL (3.6-10.0)
[2021-08-10 06:10] LABS: ALANINE AMINOTRANSFERASE 112 Units/L (12-78); ALBUMIN 2.2 g/dL (3.4-5.0); ALKALINE PHOSPHATASE 61 Units/L (46-116); ASPARTATE AMINO TRANSFERASE 22 Units/L (15-37); BLOOD UREA NITROGEN 26 mg/dL (7-18); CALCIUM 8.3 mg/dL (8.5-10.1); CARBON DIOXIDE 31.4 mmol/L (21-32); CHLORIDE 105 mmol/L (98-107); COR CA(FOR HYPOALB) 9.7 mg/dL (8.5-10.1); COR NA(FOR HYPERGLY) 145 mmol/L (136-145); SODIUM 141 mmol/L (136-145); TOTAL PROTEIN 5.3 g/dL (6.4-8.2); eGFR NON BLACK RACES > 60 (>60)
[2021-08-10] MEDS: HumuLIN R SUBCUT PRN ×3 (06:23→21:28)
--- NOTE | 2021-08-10 06:35 | RAD ---
HISTORYCOVID PNEUMONIASTUDYCHEST, 1 [id number]/09/2021FINDINGSThe cardiomediastinal silhouette is stable. Similar bilateral airspace opacities. ACDF hardware partially visualized. The bony thorax appears intact.IMPRESSIONNo significant change.Electronically signed by: NESTOR PLAZA (Aug 10, 2021 06:32:52)
[2021-08-10 07:31] LABS: BAND NEUTROPHILS % 4 % (0-10)
[2021-08-10 07:32] LABS: METAMYELOCYTES % 1; PLATELET MORPHOLOGY COMMENT NORMAL (NORMAL)
[2021-08-10] MEDS: ROBITUSSIN DM PO SCH ×4 (08:40→21:31)
[2021-08-10] MEDS: TRICOR TAB 160 MG PO SCH (08:40)
[2021-08-10] MEDS: VITAMIN D3 125 mcg (5,000 UNITS) PO SCH (08:40)
[2021-08-10] MEDS: K-DUR TAB 20 MEQ PO SCH (08:40)
[2021-08-10] MEDS: LEVAQUIN PREMIX IV 500 MG 500 MG/100 ML BAG IV SCH (08:40)
[2021-08-10] MEDS: PEPCID TAB 40 MG PO SCH ×2 (08:40→21:29)
[2021-08-10] MEDS: ZINC SULFATE PO SCH ×2 (08:40→21:31)
[2021-08-10] MEDS: PROTONIX INJ 40 MG VIAL IVP SCH ×2 (08:40→21:30)
[2021-08-10] MEDS: LOVENOX INJ 30 MG SYR SC SCH ×2 (08:40→21:27)
[2021-08-10] MEDS: BROVANA IN SCH ×2 (08:52→20:40)
[2021-08-10] MEDS: PULMICORT NEB TX 0.5 MG NEB SCH ×2 (08:52→20:40)
[2021-08-10] MEDS: NORVASC TAB 5 MG PO SCH (09:37)
--- NOTE | 2021-08-10 16:20 | PCM.PROG ---
Progress Note Progress Note for Day of Date of Exam: 08/10/21 Subjective Subjective: Patient feels SOB still. Coughing more. Past Medical Family Social History Past Med/Fam/Surg Hx: No changes since H&P Allergies: Allergies No Known Drug Allergies Allergy (Verified 08/04/21 14:38) Review of Systems ROS: No change since H&P Vital Signs and I&O's Vital Signs: Temperature 97.9 F Pulse Rate [Left Radial] 74 Pulse Rate 73 Respiratory Rate 15 Blood Pressure [Left Arm] 133/75 Blood Pressure [Right Arm] 118/60 Blood Pressure 153/70 O2 Sat by Pulse Oximetry 91 Intake and Output: Intake & Output 08/08/21 08/09/21 08/10/21 08/11/21 11:59 11:59 11:59 11:59 Intake Total 1944 / 1944 2358 / 2358 2609 / 2609 Output Total 1250 / 1250 3250 / 3250 1875 / 1875 Balance 694 / 694 -892 / -892 734 / 734 Physical Exam Oriented: Normal Eyes: Normal Ear: Normal Nose: Normal Throat: Normal Respiratory: Generalized and Diminished Cardiovascular: Normal and Edema : Normal Auscultation: Bowel Sounds: Normal Tenderness: Normal Skin: Decreased Turgur Musculoskeletal: Right, Left, Hip, Back:Thoracic, Back:Lumbar and Tender Psychiatric: Anxiety Affect: Anxious Speech Pattern: Clear and Appropriate Laboratory and Diagnostics Result Diagrams: 08/10/21 05:21 08/10/21 05:21 Labs: 08/06/21 09:02 Sputum - Expectorated Sputum Sputum Culture - Preliminary 08/06/21 09:02 Sputum - Expectorated Sputum - Final 08/05/21 16:03 Blood Blood Culture - Preliminary 08/05/21 16:03 Blood Blood Culture - Preliminary Laboratory WBC 13.7 X10^3/uL (3.6-10.0) H 08/10/21 05:21 RBC 4.17 X10^6/uL (4.7-6.0) L 08/10/21 05:21 Hgb 12.9 g/dL (13.5-18.0) L 08/10/21 05:21 Hct 37.0 % (42.0-54.0) L 08/10/21 05:21 MCV 88.8 fL (80.0-100.0) 08/10/21 05:21 MCH 31.1 pg (27.0-34.0) 08/10/21 05:21 MCHC 35.0 g/dL (33.0-35.0) 08/10/21 05:21 RDW 12.9 % (11.6-16.5) 08/10/21 05:21 Plt Count 232 X10^3/uL (150.0-450.0) 08/10/21 05:21 Plt Count Comment Adequate (ADEQUATE) 08/10/21 05:21 MPV 9.2 fL (7.4-11.0) 08/10/21 05:21 Neut % (Auto) 92.1 % (42.0-75.0) H 08/10/21 05:21 Lymph % (Auto) 3.7 % (21.0-51.0) L 08/10/21 05:21 [place] % (Auto) 3.8 % (0.0-13.0) 08/10/21 05:21 Eos % (Auto) 0.0 % (0.9-2.9) L 08/10/21 05:21 Baso % (Auto) 0.4 % (0.2-1.0) 08/10/21 05:21 Neut # (Auto) 12.6 x10^3/uL (2.2-4.8) H 08/10/21 05:21 Lymph # (Auto) 0.5 X10^3/uL (1.3-2.9) L 08/10/21 05:21 [place] # (Auto) 0.5 x10^3/uL (0.3-0.8) 08/10/21 05:21 Eos # (Auto) 0.0 x10^3/uL (0.0-0.2) 08/10/21 05:21 Baso # (Auto) 0.1 X10^3/uL (0.0-0.1) 08/10/21 05:21 Absolute Nucleated RBC 0.0 /100WBC 08/10/21 05:21 Total Counted 100 08/10/21 05:21 Neutrophils % (Manual) 86 % (39-76) H 08/10/21 05:21 Band Neutrophils % 4 % (0-10) 08/10/21 05:21 Lymphocytes % (Manual) 5 % (13-43) L 08/10/21 05:21 Monocytes % (Manual) 4 % (4-9) 08/10/21 05:21 Metamyelocytes % 1 08/10/21 05:21 Plt Morphology Comment Normal (NORMAL) 08/10/21 05:21 RBC Morphology Normal (NORMAL) 08/10/21 05:21 D-Dimer 1.20 ug/ml (0.0-0.57) H* 08/04/21 15:20 Sample Site Lrad 08/09/21 05:05 ABG pH 7.520 (7.35-7.45) H 08/09/21 05:05 ABG pCO2 46.0 mmHg (35.0-45.0) H 08/09/21 05:05 ABG pO2 68.0 mmHg (80.0-100.0) L 08/09/21 05:05 ABG HCO3 37.6 mmol/L (22-26) H* 08/09/21 05:05 ABG O2 Saturation 95.0 % (90-100) 08/09/21 05:05 ABG Base Excess 13.1 mmol/L (-2.0-2.0) H 08/09/21 05:05 Nakul Test Pos 08/09/21 05:05 A-a Gradient 103.0 mmHg 08/09/21 05:05 FiO2 32.0 08/09/21 05:05 Blood Gas Comments Cj well mts 08/09/21 05:05 Sodium 141 mmol/L (136-145) 08/10/21 05:21 Corrected Sodium 145 mmol/L (136-145) 08/10/21 05:21 Potassium 4.2 mmol/L (3.5-5.1) 08/10/21 05:21 Chloride 105 mmol/L (98-107) 08/10/21 05:21 Carbon Dioxide 31.4 mmol/L (21-32) 08/10/21 05:21 BUN 26 mg/dL (7-18) H 08/10/21 05:21 Creatinine 1.20 mg/dL (0.70-1.30) 08/10/21 05:21 Est GFR (MDRD) Af Amer > 60 (>60) 08/10/21 05:21 Est GFR (MDRD) Non-Af > 60 (>60) 08/10/21 05:21 Glucose 259 mg/dL (65-99) H 08/10/21 05:21 POC Glucose (mg/dL) 275 mg/dL (65-99) H 08/10/21 11:46 Hemoglobin A1c 6.9 % 08/07/21 04:51 Calcium 8.3 mg/dL (8.5-10.1) L 08/10/21 05:21 Corrected Calcium 9.7 mg/dL (8.5-10.1) 08/10/21 05:21 Ferritin 2766 ng/mL (26-388) H 08/04/21 15:20 Total Bilirubin 0.70 mg/dL (0.2-1.0) 08/10/21 05:21 AST 22 Units/L (15-37) 08/10/21 05:21 ALT 112 Units/L (12-78) H 08/10/21 05:21 Alkaline Phosphatase 61 Units/L (46-116) 08/10/21 05:21 Creatine Kinase 167 Units/L (39-308) 08/04/21 15:20 CK-MB (CK-2) 2.0 ng/mL (0-4.0) 08/04/21 15:20 CK/CKMB % Calc 1.2 % (<4) 08/04/21 15:20 Troponin I < 0.02 ng/mL (0-1.5) 08/04/21 15:20 C-Reactive Protein 11.30 mg/L (0-3.0) H 08/04/21 15:20 B-Natriuretic Peptide 63.4 pg/mL (0-79) 08/04/21 15:20 Total Protein 5.3 g/dL (6.4-8.2) L 08/10/21 05:21 Albumin 2.2 g/dL (3.4-5.0) L 08/10/21 05:21 Globulin 3.1 g/dL (2.5-4.5) 08/10/21 05:21 Albumin/Globulin Ratio 0.7 Ratio (1.1-2.1) L 08/10/21 05:21 Radiology Reviewed: Yes Plan (1) Acute hypoxemic respiratory failure due to COVID-19: Status: Acute Plan: ADMIT, IV REMDESIVIR IV SOLU MEDROL, IV ATBX IV HYDRATION, CARIDAC MONITORING BP CONTROL, PPI THERAPY LOVENOX DVT PREVENTION AM CXR AND ABG, SUPPLMENTAL O2, DUO NEBS (2) Hypertension: Status: Acute Narrative Support Text: Stable. Plan: Continue to monitor BP. (3) Arthritis: Status: Acute (4) Pneumonia due to COVID-19 virus: Status: Acute
[2021-08-10] MEDS: SNACK - Diabetic Appropriate PO SCH (21:26)
[2021-08-11] MEDS: ASCORBIC ACID INJ MULTI-DOSE VIAL 1,500 MG in NS 100 ML IV 100 ML IV SCH ×4 (02:08→21:52)
[2021-08-11 05:11] LABS: BASOPHILS # (AUTO) 0.1 X10^3/uL (0.0-0.1); BASOPHILS % (AUTO) 0.5 % (0.2-1.0); EOSINOPHILS % (AUTO) 0.1 % (0.9-2.9); HEMATOCRIT 37.7 % (42.0-54.0); HEMOGLOBIN 12.7 g/dL (13.5-18.0); LYMPHOCYTES # (AUTO) 0.4 X10^3/uL (1.3-2.9); LYMPHOCYTES % (AUTO) 2.5 % (21.0-51.0); MEAN CORPUSCULAR HEMOGLOBIN 30.1 pg (27.0-34.0); MEAN CORPUSCULAR HGB CONC 33.6 g/dL (33.0-35.0); MEAN CORPUSCULAR VOLUME 89.7 fL (80.0-100.0); MEAN PLATELET VOLUME 8.8 fL (7.4-11.0); MONOCYTES # (AUTO) 0.2 x10^3/uL (0.3-0.8); MONOCYTES % (AUTO) 1.2 % (0.0-13.0); NEUTROPHILS # (AUTO) 15.5 x10^3/uL (2.2-4.8); NEUTROPHILS % (AUTO) 95.7 % (42.0-75.0); PLATELET COUNT 209 X10^3/uL (150.0-450.0); RED BLOOD COUNT 4.21 X10^6/uL (4.7-6.0); RED CELL DISTRIBUTION WIDTH 13.1 % (11.6-16.5); WHITE BLOOD COUNT 16.2 X10^3/uL (3.6-10.0)
[2021-08-11 05:31] LABS: ALANINE AMINOTRANSFERASE 87 Units/L (12-78); ALBUMIN 2.1 g/dL (3.4-5.0); ALKALINE PHOSPHATASE 58 Units/L (46-116); ASPARTATE AMINO TRANSFERASE 21 Units/L (15-37); BLOOD UREA NITROGEN 23 mg/dL (7-18); CARBON DIOXIDE 28.7 mmol/L (21-32); CHLORIDE 104 mmol/L (98-107); COR CA(FOR HYPOALB) 9.5 mg/dL (8.5-10.1); COR NA(FOR HYPERGLY) 142 mmol/L (136-145); CREATININE 1.06 mg/dL (0.70-1.30); SODIUM 138 mmol/L (136-145); TOTAL PROTEIN 5.1 g/dL (6.4-8.2); eGFR NON BLACK RACES > 60 (>60)
[2021-08-11 05:52] LABS: BAND NEUTROPHILS % 3 % (0-10); PLATELET MORPHOLOGY COMMENT NORMAL (NORMAL)
[2021-08-11] MEDS: SOLU-Medrol 40 MG VIAL IVP SCH ×3 (05:54→21:57)
[2021-08-11] MEDS: ZOSYN VIAL 3.375 GRAMS 3.375 G in NS 50 ML IV + SPIKE MINIBAG* 50 ML IV SCH ×3 (05:54→21:57)
[2021-08-11] MEDS: HumuLIN R SUBCUT PRN ×3 (05:55→21:53)
[2021-08-11] MEDS: NORVASC TAB 5 MG PO SCH (08:58)
[2021-08-11] MEDS: LOVENOX INJ 30 MG SYR SC SCH ×2 (08:58→21:52)
[2021-08-11] MEDS: K-DUR TAB 20 MEQ PO SCH (08:58)
[2021-08-11] MEDS: PEPCID TAB 40 MG PO SCH ×2 (08:59→21:53)
[2021-08-11] MEDS: ROBITUSSIN DM PO SCH ×4 (08:59→21:55)
[2021-08-11] MEDS: PROTONIX INJ 40 MG VIAL IVP SCH ×2 (08:59→21:55)
[2021-08-11] MEDS: VITAMIN D3 125 mcg (5,000 UNITS) PO SCH (09:00)
[2021-08-11] MEDS: ZINC SULFATE PO SCH ×2 (09:00→21:56)
[2021-08-11] MEDS: TRICOR TAB 160 MG PO SCH (09:00)
[2021-08-11] MEDS: BROVANA IN SCH ×2 (09:21→20:05)
[2021-08-11] MEDS: PULMICORT NEB TX 0.5 MG NEB SCH ×2 (09:21→20:05)
[2021-08-11] MEDS: LEVAQUIN PREMIX IV 500 MG 500 MG/100 ML BAG IV SCH (10:20)
[2021-08-11 13:11] LABS: ABG BASE EXCESS 8.5 mmol/L (-2.0-2.0)
[2021-08-11 13:12] LABS: ABG HCO3 31.8 mmol/L (22-26)
[2021-08-11 13:13] LABS: ABG ALLEN TEST POS
[2021-08-11] MEDS: NS 1000 ML 1,000 ML IV SCH ×2 (17:00→23:38)
[2021-08-11 18:05] VITALS: BMI 26.4
[2021-08-11] MEDS: SNACK - Diabetic Appropriate PO SCH (21:51)
[2021-08-12] MEDS: ASCORBIC ACID INJ MULTI-DOSE VIAL 1,500 MG in NS 100 ML IV 100 ML IV SCH ×4 (02:39→20:20)
[2021-08-12 04:37] LABS: ABG BASE EXCESS 7.8 mmol/L (-2.0-2.0)
[2021-08-12 04:38] LABS: ABG ALLEN TEST POS
[2021-08-12 05:32] LABS: BASOPHILS % (AUTO) 0.2 % (0.2-1.0); HEMATOCRIT 39.5 % (42.0-54.0); HEMOGLOBIN 13.2 g/dL (13.5-18.0); LYMPHOCYTES # (AUTO) 0.3 X10^3/uL (1.3-2.9); MEAN CORPUSCULAR HGB CONC 33.3 g/dL (33.0-35.0); MEAN CORPUSCULAR VOLUME 89.9 fL (80.0-100.0); MEAN PLATELET VOLUME 9.2 fL (7.4-11.0); MONOCYTES # (AUTO) 0.5 x10^3/uL (0.3-0.8); NEUTROPHILS # (AUTO) 16.6 x10^3/uL (2.2-4.8); NEUTROPHILS % (AUTO) 94.8 % (42.0-75.0); PLATELET COUNT 145 X10^3/uL (150.0-450.0); RED BLOOD COUNT 4.39 X10^6/uL (4.7-6.0); RED CELL DISTRIBUTION WIDTH 13.2 % (11.6-16.5); WHITE BLOOD COUNT 17.5 X10^3/uL (3.6-10.0)
[2021-08-12 05:47] LABS: ALANINE AMINOTRANSFERASE 76 Units/L (12-78); ALBUMIN 2.1 g/dL (3.4-5.0); ALKALINE PHOSPHATASE 60 Units/L (46-116); ASPARTATE AMINO TRANSFERASE 26 Units/L (15-37); BLOOD UREA NITROGEN 24 mg/dL (7-18); CARBON DIOXIDE 28.1 mmol/L (21-32); CHLORIDE 104 mmol/L (98-107); COR CA(FOR HYPOALB) 9.5 mg/dL (8.5-10.1); COR NA(FOR HYPERGLY) 143 mmol/L (136-145); SODIUM 139 mmol/L (136-145); TOTAL PROTEIN 5.3 g/dL (6.4-8.2); eGFR NON BLACK RACES > 60 (>60)
[2021-08-12] MEDS: SOLU-Medrol 40 MG VIAL IVP SCH ×3 (05:56→21:18)
[2021-08-12] MEDS: ZOSYN VIAL 3.375 GRAMS 3.375 G in NS 50 ML IV + SPIKE MINIBAG* 50 ML IV SCH (05:56)
[2021-08-12] MEDS: HumuLIN R SUBCUT PRN ×4 (06:12→20:22)
[2021-08-12 06:16] LABS: BAND NEUTROPHILS % 7 % (0-10); PLATELET MORPHOLOGY COMMENT NORMAL (NORMAL)
--- NOTE | 2021-08-12 06:23 | RAD ---
HISTORYCOVID PNEUMONIASTUDYCHEST, 1 [id number]/10/2021.TECHNIQUEAP view of the chestFINDINGSCardiac and mediastinal contours are within normal limits. No significant change in bilateral airspace and interstitial opacities. Cannot exclude small pleural effusions. No pneumothorax.IMPRESSIONNo significant change.Electronically signed by: Williams Orellana (Aug 12, 2021 06:21:15)
[2021-08-12] MEDS: BROVANA IN SCH ×2 (09:20→20:00)
[2021-08-12] MEDS: PULMICORT NEB TX 0.5 MG NEB SCH ×2 (09:20→20:00)
[2021-08-12] MEDS: K-DUR TAB 20 MEQ PO SCH (09:24)
[2021-08-12] MEDS: ZINC SULFATE PO SCH ×2 (09:25→20:26)
[2021-08-12] MEDS: NORVASC TAB 5 MG PO SCH (09:25)
[2021-08-12] MEDS: PEPCID TAB 40 MG PO SCH ×2 (09:26→20:22)
[2021-08-12] MEDS: ROBITUSSIN DM PO SCH ×4 (09:26→20:26)
[2021-08-12] MEDS: VITAMIN D3 125 mcg (5,000 UNITS) PO SCH (09:26)
[2021-08-12] MEDS: TRICOR TAB 160 MG PO SCH (09:26)
[2021-08-12] MEDS: PROTONIX INJ 40 MG VIAL IVP SCH ×2 (09:27→20:23)
[2021-08-12] MEDS: LOVENOX INJ 30 MG SYR SC SCH ×2 (09:27→20:20)
[2021-08-12] MEDS: LEVAQUIN PREMIX IV 500 MG 500 MG/100 ML BAG IV SCH (10:15)
--- NOTE | 2021-08-12 13:44 | PCM.PROG ---
Progress Note - Progress Note for Day of Date of Exam: 08/11/21 - Subjective Subjective: Patient feels SOB still. Continued coughing. Patient becomes very SOB with minimal exertion. Patient is afraid to discharge home. - Past Medical Family Social History Past Med/Fam/Surg Hx: No changes since H&P Allergies: Allergies No Known Drug Allergies Allergy (Verified 08/04/21 14:38) - Review of Systems ROS: No change since H&P - Vital Signs and I&O's Vital Signs: Temperature 97.8 F Pulse Rate [Left Radial] 63 Pulse Rate 87 Respiratory Rate 22 Blood Pressure [Left Arm] 135/67 Blood Pressure [Right Arm] 118/60 Blood Pressure 153/70 O2 Sat by Pulse Oximetry 92 Intake and Output: Intake & Output 08/09/21 08/10/21 08/11/21 08/12/21 23:59 23:59 23:59 23:59 Intake Total 2141 / 2141 2463 / 2463 3357 / 3357 647 / 647 Output Total 1425 / 1425 1650 / 1650 2325 / 2325 450 / 450 Balance 716 / 716 813 / 813 1032 / 1032 197 / 197 - Physical Exam Oriented: Normal Eyes: Normal Ear: Normal Nose: Normal Throat: Normal Respiratory: Generalized, Diminished, Rhonchi Cardiovascular: Normal, Edema : Normal Auscultation: Bowel Sounds: Normal Tenderness: Normal Skin: Decreased Turgur Musculoskeletal: Normal (Generalized weakness), Right, Left, Hip, Back:Thoracic, Back:Lumbar, Tender Psychiatric: Anxiety Mood Description: Anxious Affect: Anxious Speech Pattern: Clear, Appropriate - Laboratory and Diagnostics Result Diagrams: 08/12/21 04:31 08/12/21 04:31 Labs: 08/05/21 16:03 Blood Blood Culture - Final 08/05/21 16:03 Blood Blood Culture - Final 08/06/21 09:02 Sputum - Expectorated Sputum Sputum Culture - Preliminary 08/06/21 09:02 Sputum - Expectorated Sputum - Final Laboratory WBC 17.5 X10^3/uL (3.6-10.0) H 08/12/21 04:31 RBC 4.39 X10^6/uL (4.7-6.0) L 08/12/21 04:31 Hgb 13.2 g/dL (13.5-18.0) L 08/12/21 04:31 Hct 39.5 % (42.0-54.0) L 08/12/21 04:31 MCV 89.9 fL (80.0-100.0) 08/12/21 04:31 MCH 30.0 pg (27.0-34.0) 08/12/21 04:31 MCHC 33.3 g/dL (33.0-35.0) 08/12/21 04:31 RDW 13.2 % (11.6-16.5) 08/12/21 04:31 Plt Count 145 X10^3/uL (150.0-450.0) L 08/12/21 04:31 Plt Count Comment Decreased (ADEQUATE) 08/12/21 04:31 MPV 9.2 fL (7.4-11.0) 08/12/21 04:31 Neut % (Auto) 94.8 % (42.0-75.0) H 08/12/21 04:31 Lymph % (Auto) 2.0 % (21.0-51.0) L 08/12/21 04:31 [place] % (Auto) 3.0 % (0.0-13.0) 08/12/21 04:31 Eos % (Auto) 0.0 % (0.9-2.9) L 08/12/21 04:31 Baso % (Auto) 0.2 % (0.2-1.0) 08/12/21 04:31 Neut # (Auto) 16.6 x10^3/uL (2.2-4.8) H 08/12/21 04:31 Lymph # (Auto) 0.3 X10^3/uL (1.3-2.9) L 08/12/21 04:31 [place] # (Auto) 0.5 x10^3/uL (0.3-0.8) 08/12/21 04:31 Eos # (Auto) 0.0 x10^3/uL (0.0-0.2) 08/12/21 04:31 Baso # (Auto) 0.0 X10^3/uL (0.0-0.1) 08/12/21 04:31 Absolute Nucleated RBC 0.0 /100WBC 08/12/21 04:31 Total Counted 100 08/12/21 04:31 Neutrophils % (Manual) 86 % (39-76) H 08/12/21 04:31 Band Neutrophils % 7 % (0-10) 08/12/21 04:31 Lymphocytes % (Manual) 2 % (13-43) L 08/12/21 04:31 Monocytes % (Manual) 5 % (4-9) 08/12/21 04:31 Metamyelocytes % 1 08/10/21 05:21 Plt Morphology Comment Normal (NORMAL) 08/12/21 04:31 RBC Morphology Normal (NORMAL) 08/12/21 04:31 D-Dimer 1.20 ug/ml (0.0-0.57) H* 08/04/21 15:20 Sample Site Lr 08/12/21 04:32 ABG pH 7.490 (7.35-7.45) H 08/12/21 04:32 ABG pCO2 42.0 mmHg (35.0-45.0) 08/12/21 04:32 ABG pO2 51.0 mmHg (80.0-100.0) L 08/12/21 04:32 ABG HCO3 32.0 mmol/L (22-26) H* 08/12/21 04:32 ABG O2 Saturation 89.0 % (90-100) L 08/12/21 04:32 ABG Base Excess 7.8 mmol/L (-2.0-2.0) H 08/12/21 04:32 Nakul Test Pos 08/12/21 04:32 A-a Gradient 125.0 mmHg 08/12/21 04:32 FiO2 32.0 08/12/21 04:32 Blood Gas Comments Cj well ae 08/12/21 04:32 Sodium 139 mmol/L (136-145) 08/12/21 04:31 Corrected Sodium 143 mmol/L (136-145) 08/12/21 04:31 Potassium 4.3 mmol/L (3.5-5.1) 08/12/21 04:31 Chloride 104 mmol/L (98-107) 08/12/21 04:31 Carbon Dioxide 28.1 mmol/L (21-32) 08/12/21 04:31 BUN 24 mg/dL (7-18) H 08/12/21 04:31 Creatinine 1.00 mg/dL (0.70-1.30) 08/12/21 04:31 Est GFR (MDRD) Af Amer > 60 (>60) 08/12/21 04:31 Est GFR (MDRD) Non-Af > 60 (>60) 08/12/21 04:31 Glucose 260 mg/dL (65-99) H 08/12/21 04:31 POC Glucose (mg/dL) 265 mg/dL (65-99) H 08/12/21 11:51 Hemoglobin A1c 6.9 % 08/07/21 04:51 Calcium 8.0 mg/dL (8.5-10.1) L 08/12/21 04:31 Corrected Calcium 9.5 mg/dL (8.5-10.1) 08/12/21 04:31 Ferritin 2766 ng/mL (26-388) H 08/04/21 15:20 Total Bilirubin 0.80 mg/dL (0.2-1.0) 08/12/21 04:31 AST 26 Units/L (15-37) 08/12/21 04:31 ALT 76 Units/L (12-78) 08/12/21 04:31 Alkaline Phosphatase 60 Units/L (46-116) 08/12/21 04:31 Creatine Kinase 167 Units/L (39-308) 08/04/21 15:20 CK-MB (CK-2) 2.0 ng/mL (0-4.0) 08/04/21 15:20 CK/CKMB % Calc 1.2 % (<4) 08/04/21 15:20 Troponin I < 0.02 ng/mL (0-1.5) 08/04/21 15:20 C-Reactive Protein 11.30 mg/L (0-3.0) H 08/04/21 15:20 B-Natriuretic Peptide 63.4 pg/mL (0-79) 08/04/21 15:20 Total Protein 5.3 g/dL (6.4-8.2) L 08/12/21 04:31 Albumin 2.1 g/dL (3.4-5.0) L 08/12/21 04:31 Globulin 3.2 g/dL (2.5-4.5) 08/12/21 04:31 Albumin/Globulin Ratio 0.7 Ratio (1.1-2.1) L 08/12/21 04:31 - Plan (1) COVID-19 virus infection Status: Acute Plan: IV antibiotics. IV steroids. Duo nebs. COVID orders. Supplemental Oxygen. IS. Repeat labs, CXR, and ABG in am. Case management for discharge planning. (2) Acute respiratory distress Status: Acute Plan: See above (3) Pneumonia Status: Acute Qualifiers: Pneumonia type: due to unspecified organism Laterality: bilateral Lung location: lower lobe of lung Qualified Code(s): J18.9 - Pneumonia, unspecified organism Plan: See above (4) Arthritis Status: Acute Plan: Pain control (5) Hypertension Status: Acute Plan: Continue to monitor BP. (6) Pneumonia due to COVID-19 virus Status: Acute Plan: See above
[2021-08-12] MEDS: ZOSYN VIAL 3.375 GRAMS 3.375 G in NS 100 ML IV + SPIKE MINIBAG* 100 ML IV SCH ×2 (14:25→21:18)
[2021-08-12] MEDS: SNACK - Diabetic Appropriate PO SCH (20:20)
[2021-08-12] MEDS: NS 1000 ML 1,000 ML IV SCH (23:34)
[2021-08-13] MEDS: ASCORBIC ACID INJ MULTI-DOSE VIAL 1,500 MG in NS 100 ML IV 100 ML IV SCH ×4 (03:01→20:06)
[2021-08-13 04:49] LABS: ABG BASE EXCESS 7.4 mmol/L (-2.0-2.0)
[2021-08-13 04:50] LABS: ABG ALLEN TEST POS; ABG HCO3 31.2 mmol/L (22-26)
[2021-08-13 05:26] LABS: BASOPHILS # (AUTO) 0.1 X10^3/uL (0.0-0.1); BASOPHILS % (AUTO) 0.4 % (0.2-1.0); HEMATOCRIT 39.4 % (42.0-54.0); HEMOGLOBIN 13.1 g/dL (13.5-18.0); LYMPHOCYTES # (AUTO) 0.3 X10^3/uL (1.3-2.9); LYMPHOCYTES % (AUTO) 1.9 % (21.0-51.0); MEAN CORPUSCULAR HEMOGLOBIN 29.9 pg (27.0-34.0); MEAN CORPUSCULAR HGB CONC 33.3 g/dL (33.0-35.0); MEAN CORPUSCULAR VOLUME 89.9 fL (80.0-100.0); MEAN PLATELET VOLUME 9.3 fL (7.4-11.0); MONOCYTES # (AUTO) 0.7 x10^3/uL (0.3-0.8); MONOCYTES % (AUTO) 4.5 % (0.0-13.0); NEUTROPHILS # (AUTO) 15.4 x10^3/uL (2.2-4.8); NEUTROPHILS % (AUTO) 93.2 % (42.0-75.0); PLATELET COUNT 173 X10^3/uL (150.0-450.0); RED BLOOD COUNT 4.39 X10^6/uL (4.7-6.0); RED CELL DISTRIBUTION WIDTH 13.2 % (11.6-16.5); WHITE BLOOD COUNT 16.5 X10^3/uL (3.6-10.0)
[2021-08-13 05:39] LABS: ALANINE AMINOTRANSFERASE 70 Units/L (12-78); ALKALINE PHOSPHATASE 59 Units/L (46-116); ASPARTATE AMINO TRANSFERASE 28 Units/L (15-37); BLOOD UREA NITROGEN 25 mg/dL (7-18); CARBON DIOXIDE 29.2 mmol/L (21-32); CHLORIDE 105 mmol/L (98-107); COR CA(FOR HYPOALB) 9.6 mg/dL (8.5-10.1); COR NA(FOR HYPERGLY) 145 mmol/L (136-145); CREATININE 1.03 mg/dL (0.70-1.30); SODIUM 141 mmol/L (136-145); TOTAL PROTEIN 5.1 g/dL (6.4-8.2); eGFR NON BLACK RACES > 60 (>60)
[2021-08-13] MEDS: ZOSYN VIAL 3.375 GRAMS 3.375 G in NS 100 ML IV + SPIKE MINIBAG* 100 ML IV SCH ×3 (05:48→21:50)
[2021-08-13] MEDS: SOLU-Medrol 40 MG VIAL IVP SCH ×3 (05:48→21:32)
[2021-08-13 05:54] LABS: PLATELET MORPHOLOGY COMMENT NORMAL (NORMAL)
[2021-08-13] MEDS: HumuLIN R SUBCUT PRN ×4 (06:12→20:14)
[2021-08-13] MEDS: PULMICORT NEB TX 0.5 MG NEB SCH ×2 (09:30→20:05)
[2021-08-13] MEDS: BROVANA IN SCH ×2 (09:30→20:05)
[2021-08-13] MEDS: LEVAQUIN PREMIX IV 500 MG 500 MG/100 ML BAG IV SCH (09:41)
[2021-08-13] MEDS: DIFLUCAN 200 MG IV PREMIX* 200 MG/100 ML BAG IV SCH (09:41)
[2021-08-13] MEDS: LOVENOX INJ 30 MG SYR SC SCH ×2 (09:41→20:06)
[2021-08-13] MEDS: K-DUR TAB 20 MEQ PO SCH (09:42)
[2021-08-13] MEDS: VITAMIN D3 125 mcg (5,000 UNITS) PO SCH (09:42)
[2021-08-13] MEDS: PEPCID TAB 40 MG PO SCH ×2 (09:42→20:10)
[2021-08-13] MEDS: ZINC SULFATE PO SCH ×2 (09:42→20:15)
[2021-08-13] MEDS: TRICOR TAB 160 MG PO SCH (09:43)
[2021-08-13] MEDS: ROBITUSSIN DM PO SCH ×4 (09:43→20:14)
[2021-08-13] MEDS: PROTONIX INJ 40 MG VIAL IVP SCH ×2 (09:43→20:14)
[2021-08-13] MEDS: NORVASC TAB 5 MG PO SCH (09:43)
[2021-08-13] MEDS: SNACK - Diabetic Appropriate PO SCH (20:00)
[2021-08-14] MEDS: ASCORBIC ACID INJ MULTI-DOSE VIAL 1,500 MG in NS 100 ML IV 100 ML IV SCH ×2 (03:00→09:51)
[2021-08-14] MEDS: NS 1000 ML 1,000 ML IV SCH (03:55)
[2021-08-14 05:14] LABS: BASOPHILS # (AUTO) 0.1 X10^3/uL (0.0-0.1); BASOPHILS % (AUTO) 0.6 % (0.2-1.0); HEMATOCRIT 38.4 % (42.0-54.0); LYMPHOCYTES # (AUTO) 0.3 X10^3/uL (1.3-2.9); LYMPHOCYTES % (AUTO) 1.9 % (21.0-51.0); MEAN CORPUSCULAR HEMOGLOBIN 30.1 pg (27.0-34.0); MEAN CORPUSCULAR HGB CONC 33.7 g/dL (33.0-35.0); MEAN CORPUSCULAR VOLUME 89.1 fL (80.0-100.0); MEAN PLATELET VOLUME 9.6 fL (7.4-11.0); MONOCYTES # (AUTO) 0.8 x10^3/uL (0.3-0.8); MONOCYTES % (AUTO) 4.9 % (0.0-13.0); NEUTROPHILS # (AUTO) 14.8 x10^3/uL (2.2-4.8); NEUTROPHILS % (AUTO) 92.6 % (42.0-75.0); PLATELET COUNT 147 X10^3/uL (150.0-450.0); RED BLOOD COUNT 4.31 X10^6/uL (4.7-6.0); RED CELL DISTRIBUTION WIDTH 13.1 % (11.6-16.5); WHITE BLOOD COUNT 15.9 X10^3/uL (3.6-10.0)
[2021-08-14 05:20] LABS: ABG BASE EXCESS 7.6 mmol/L (-2.0-2.0)
[2021-08-14 05:21] LABS: ABG ALLEN TEST POS
[2021-08-14 05:22] LABS: ALANINE AMINOTRANSFERASE 65 Units/L (12-78); ALKALINE PHOSPHATASE 58 Units/L (46-116); ASPARTATE AMINO TRANSFERASE 30 Units/L (15-37); BLOOD UREA NITROGEN 28 mg/dL (7-18); CARBON DIOXIDE 29.4 mmol/L (21-32); CHLORIDE 106 mmol/L (98-107); COR CA(FOR HYPOALB) 9.6 mg/dL (8.5-10.1); COR NA(FOR HYPERGLY) 145 mmol/L (136-145); CREATININE 0.94 mg/dL (0.70-1.30); SODIUM 141 mmol/L (136-145); eGFR NON BLACK RACES > 60 (>60)
[2021-08-14 05:26] LABS: PLATELET MORPHOLOGY COMMENT NORMAL (NORMAL)
[2021-08-14] MEDS: SOLU-Medrol 40 MG VIAL IVP SCH (05:32)
[2021-08-14] MEDS: HumuLIN R SUBCUT PRN ×2 (05:44→12:54)
[2021-08-14] MEDS: ZOSYN VIAL 3.375 GRAMS 3.375 G in NS 100 ML IV + SPIKE MINIBAG* 100 ML IV SCH (05:44)
--- NOTE | 2021-08-14 06:41 | RAD ---
HISTORYCOVID PNEUMONIASTUDYCHEST, 1 [id number]/12/2021.TECHNIQUEAP view of the chestFINDINGSCardiac and mediastinal contours are within normal limits. No significant change in bilateral airspace and interstitial opacities. No definite pleural effusion or pneumothorax.IMPRESSIONNo significant change.Electronically signed by: Williams Orellana (Aug 14, 2021 06:39:15)
[2021-08-14] MEDS: BROVANA IN SCH (08:45)
[2021-08-14] MEDS: PULMICORT NEB TX 0.5 MG NEB SCH (08:45)
[2021-08-14] MEDS: DIFLUCAN 200 MG IV PREMIX* 200 MG/100 ML BAG IV SCH (09:51)
[2021-08-14] MEDS: K-DUR TAB 20 MEQ PO SCH (09:52)
[2021-08-14] MEDS: LEVAQUIN PREMIX IV 500 MG 500 MG/100 ML BAG IV SCH (09:52)
[2021-08-14] MEDS: ROBITUSSIN DM PO SCH ×2 (09:53→12:40)
[2021-08-14] MEDS: TRICOR TAB 160 MG PO SCH (09:53)
[2021-08-14] MEDS: PEPCID TAB 40 MG PO SCH (09:53)
[2021-08-14] MEDS: NORVASC TAB 5 MG PO SCH (09:53)
[2021-08-14] MEDS: PROTONIX INJ 40 MG VIAL IVP SCH (09:53)
[2021-08-14] MEDS: ZINC SULFATE PO SCH (09:54)
[2021-08-14] MEDS: VITAMIN D3 125 mcg (5,000 UNITS) PO SCH (09:54)
[2021-08-14] MEDS: LOVENOX INJ 30 MG SYR SC SCH (10:40)
[2021-08-14 12:07] VITALS: BP 145/67
--- NOTE | 2021-08-15 15:17 | PCM.PROG ---
Progress Note - Progress Note for Day of Date of Exam: 08/13/21 - Subjective Subjective: Patient feels SOB still. Continued coughing. Patient becomes very SOB with minimal exertion. Patient is afraid to discharge home. We have discussed rehab with patient vs d/c home. Patient is agreeable to rehab. - Past Medical Family Social History Past Med/Fam/Surg Hx: No changes since H&P Allergies: Allergies No Known Drug Allergies Allergy (Verified 08/04/21 14:38) - Review of Systems ROS: No change since H&P - Vital Signs and I&O's Vital Signs: Temperature 97.6 F Pulse Rate [Left Radial] 74 Pulse Rate 84 Respiratory Rate 32 Blood Pressure [Left Arm] 149/70 Blood Pressure [Right Arm] 118/60 Blood Pressure 145/67 O2 Sat by Pulse Oximetry 89 Intake and Output: Intake & Output 08/12/21 08/13/21 08/14/21 08/15/21 23:59 23:59 23:59 23:59 Intake Total 2886 / 2886 2771 / 2771 615 / 615 Output Total 2850 / 2850 2325 / 2325 925 / 925 Balance 36 / 36 446 / 446 -310 / -310 - Physical Exam Oriented: Normal Eyes: Normal Ear: Normal Nose: Normal Throat: Normal Respiratory: Generalized, Diminished, Rhonchi Cardiovascular: Normal, Edema : Normal Auscultation: Bowel Sounds: Normal Palpation: Normal Tenderness: Normal Skin: Decreased Turgur Musculoskeletal: Normal (Generalized weakness), Right, Left, Hip, Back:Thoracic, Back:Lumbar, Tender Psychiatric: Anxiety Mood Description: Anxious Affect: Anxious Speech Pattern: Clear, Appropriate - Laboratory and Diagnostics Result Diagrams: 08/14/21 04:24 08/14/21 11:10 Labs: 08/13/21 16:44 Sputum - Expectorated Sputum Sputum Culture - Preliminary 08/06/21 09:02 Sputum - Expectorated Sputum Sputum Culture - Final 08/06/21 09:02 Sputum - Expectorated Sputum - Final 08/05/21 16:03 Blood Blood Culture - Final 08/05/21 16:03 Blood Blood Culture - Final Laboratory WBC 15.9 X10^3/uL (3.6-10.0) H 08/14/21 04:24 RBC 4.31 X10^6/uL (4.7-6.0) L 08/14/21 04:24 Hgb 13.0 g/dL (13.5-18.0) L 08/14/21 04:24 Hct 38.4 % (42.0-54.0) L 08/14/21 04:24 MCV 89.1 fL (80.0-100.0) 08/14/21 04:24 MCH 30.1 pg (27.0-34.0) 08/14/21 04:24 MCHC 33.7 g/dL (33.0-35.0) 08/14/21 04:24 RDW 13.1 % (11.6-16.5) 08/14/21 04:24 Plt Count 147 X10^3/uL (150.0-450.0) L 08/14/21 04:24 Plt Count Comment Decreased (ADEQUATE) 08/14/21 04:24 MPV 9.6 fL (7.4-11.0) 08/14/21 04:24 Neut % (Auto) 92.6 % (42.0-75.0) H 08/14/21 04:24 Lymph % (Auto) 1.9 % (21.0-51.0) L 08/14/21 04:24 [place] % (Auto) 4.9 % (0.0-13.0) 08/14/21 04:24 Eos % (Auto) 0.0 % (0.9-2.9) L 08/14/21 04:24 Baso % (Auto) 0.6 % (0.2-1.0) 08/14/21 04:24 Neut # (Auto) 14.8 x10^3/uL (2.2-4.8) H 08/14/21 04:24 Lymph # (Auto) 0.3 X10^3/uL (1.3-2.9) L 08/14/21 04:24 [place] # (Auto) 0.8 x10^3/uL (0.3-0.8) 08/14/21 04:24 Eos # (Auto) 0.0 x10^3/uL (0.0-0.2) 08/14/21 04:24 Baso # (Auto) 0.1 X10^3/uL (0.0-0.1) 08/14/21 04:24 Absolute Nucleated RBC 0.0 /100WBC 08/14/21 04:24 Total Counted 100 08/14/21 04:24 Neutrophils % (Manual) 93 % (39-76) H 08/14/21 04:24 Band Neutrophils % 7 % (0-10) 08/12/21 04:31 Lymphocytes % (Manual) 3 % (13-43) L 08/14/21 04:24 Monocytes % (Manual) 4 % (4-9) 08/14/21 04:24 Metamyelocytes % 1 08/10/21 05:21 Plt Morphology Comment Normal (NORMAL) 08/14/21 04:24 RBC Morphology Normal (NORMAL) 08/14/21 04:24 D-Dimer 1.20 ug/ml (0.0-0.57) H* 08/04/21 15:20 Sample Site Lrad 08/14/21 05:20 ABG pH 7.520 (7.35-7.45) H 08/14/21 05:20 ABG pCO2 38.0 mmHg (35.0-45.0) 08/14/21 05:20 ABG pO2 46.0 mmHg (80.0-100.0) L* 08/14/21 05:20 ABG HCO3 31.0 mmol/L (22-26) H* 08/14/21 05:20 ABG O2 Saturation 87.0 % (90-100) L 08/14/21 05:20 ABG Base Excess 7.6 mmol/L (-2.0-2.0) H 08/14/21 05:20 Nakul Test Pos 08/14/21 05:20 A-a Gradient 56.0 mmHg 08/14/21 05:20 FiO2 21.0 08/14/21 05:20 Blood Gas Comments Cj well ms 08/14/21 05:20 Sodium 141 mmol/L (136-145) 08/14/21 04:24 Corrected Sodium 145 mmol/L (136-145) 08/14/21 04:24 Potassium 4.2 mmol/L (3.5-5.1) 08/14/21 04:24 Chloride 106 mmol/L (98-107) 08/14/21 04:24 Carbon Dioxide 29.4 mmol/L (21-32) 08/14/21 04:24 BUN 28 mg/dL (7-18) H 08/14/21 04:24 Creatinine 0.94 mg/dL (0.70-1.30) 08/14/21 04:24 Est GFR (MDRD) Af Amer > 60 (>60) 08/14/21 04:24 Est GFR (MDRD) Non-Af > 60 (>60) 08/14/21 04:24 Glucose 277 mg/dL (65-99) H 08/14/21 11:10 POC Glucose (mg/dL) 444 mg/dL (65-99) H 08/14/21 10:37 Hemoglobin A1c 6.9 % 08/07/21 04:51 Calcium 8.0 mg/dL (8.5-10.1) L 08/14/21 04:24 Corrected Calcium 9.6 mg/dL (8.5-10.1) 08/14/21 04:24 Ferritin 2766 ng/mL (26-388) H 08/04/21 15:20 Total Bilirubin 0.80 mg/dL (0.2-1.0) 08/14/21 04:24 AST 30 Units/L (15-37) 08/14/21 04:24 ALT 65 Units/L (12-78) 08/14/21 04:24 Alkaline Phosphatase 58 Units/L (46-116) 08/14/21 04:24 Creatine Kinase 167 Units/L (39-308) 08/04/21 15:20 CK-MB (CK-2) 2.0 ng/mL (0-4.0) 08/04/21 15:20 CK/CKMB % Calc 1.2 % (<4) 08/04/21 15:20 Troponin I < 0.02 ng/mL (0-1.5) 08/04/21 15:20 C-Reactive Protein 11.30 mg/L (0-3.0) H 08/04/21 15:20 B-Natriuretic Peptide 63.4 pg/mL (0-79) 08/04/21 15:20 Total Protein 5.0 g/dL (6.4-8.2) L 08/14/21 04:24 Albumin 2.0 g/dL (3.4-5.0) L 08/14/21 04:24 Globulin 3.0 g/dL (2.5-4.5) 08/14/21 04:24 Albumin/Globulin Ratio 0.7 Ratio (1.1-2.1) L 08/14/21 04:24 - Plan (1) Pneumonia due to COVID-19 virus Status: Acute Plan: See above (2) Hypoxia Status: Acute Plan: See above (3) COVID-19 virus infection Status: Acute Plan: IV antibiotics. IV steroids. Duo nebs. COVID orders. Supplemental Oxygen. IS. Repeat labs, CXR, and ABG in am. Case management for discharge planning. (4) Acute respiratory distress Status: Acute Plan: See above (5) Pneumonia Status: Acute Qualifiers: Pneumonia type: due to unspecified organism Laterality: bilateral Lung location: lower lobe of lung Qualified Code(s): J18.9 - Pneumonia, unspecified organism Plan: See above (6) Arthritis Status: Acute Plan: Pain control (7) Hypertension Status: Acute Plan: Continue to monitor BP.
== END 2021-08-14 13:15 | DRG 177 ==
LOC: ER 14:37 → MED/SURG 21:53 → ICU 08-11 17:09
PROVIDERS: ADMIT Family Medicine; ATTEND Internal Medicine
DX: M19.90 Unspecified osteoarthritis, unspecified site; I10 Essential (primary) hypertension; B96.89 Other specified bacterial agents as the cause of diseases classified elsewhere; R94.31 Abnormal electrocardiogram [ECG] [EKG]; B37.89 Other sites of candidiasis; J12.82 Pneumonia due to coronavirus disease 2019; B96.5 Pseudomonas (aeruginosa) (mallei) (pseudomallei) as the cause of diseases classified elsewhere; R06.02 Shortness of breath; U07.1 COVID-19; R73.09 Other abnormal glucose; J96.01 Acute respiratory failure with hypoxia; R26.89 Other abnormalities of gait and mobility

== ENCOUNTER 2021-08-17 09:13 | Inpatient (IN) ==
--- NOTE | 2021-08-17 09:38 | DR.URIAD ---
HPI Time Seen Time Seen by Provider: 08/17/21 09:35 PMH PMH Past Medical History: Arthritis and Hypertension Past Surgical History: Yes Surgical History: Ortho Surgery Family History Family Medical History: Diabetes Mellitus, [place] and Hypertension Social History Do you use any recreational Drugs:: No ROS Review of Systems Constitutional: See HPI, Weakness and Fatigue; negative Fever Eyes: No Symptoms Reported and See HPI ENTM: See HPI and Nose Congestion; negative Nose Discharge Respiratoy: See HPI, Moist Cough and Short of Breath Cardiovascular: No Symptoms Reported and See HPI; negative Chest Pain, Edema and Palpitations Gastrointestinal/Abdominal: No Symptoms Reported and See HPI; negative Abdominal Pain, Diarrhea and Vomiting Genitourinary: No Symptoms Reported and See HPI; negative Dysuria and Hematuria Neurological: See HPI and Weakness; negative Headache and Dizziness Musculoskeletal: See HPI and Muscle Pain Integumentary: No Symptoms Reported and See HPI; negative Rash and Juandice Hematologic/Lymphatic: No Symptoms Reported and See HPI; negative Easy Bruising Endocrine: No Symptoms Reported, See HPI and Increased Thirst; negative Increased Urine Psychiatric: No Symptoms Reported and See HPI All Other Systems: Reviewed and Negative PE Vital Signs Vitals: Temperature 98.0 F Pulse Rate 93 Respiratory Rate 31 Blood Pressure [Left Arm] 149/70 Blood Pressure [Right Arm] 118/60 Blood Pressure 127/64 O2 Sat by Pulse Oximetry 95 General Limitations: No Limitations General Appearance: Alert and In No Apparent Distress Head Head Exam: Normal Inspection Eyes Eye exam: Normal Appearance and PERRL; negative Scleral Icterus and Conjunctival Injection ENT ENT Exam: Normal Exam, Normal Oropharynx, Normal External Ear Exam and TM's Normal Bilaterally External Ear Exam: Normal External Inspection; negative Mastoid Tenderness TM/Canal Exam: Bilateral: Normal Nose Exam: Normal Nose Exam Mouth Exam: Normal Inspection; negative Lip Swelling and Tongue Swelling Throat Exam: Normal Inspection; negative Tonsillar Erythema, Tonsillomegaly and Tonsillar Exudate Neck Neck Exam: Normal Inspection and Trachea Midline; negative Tenderness and Lymphadenopathy Chest Chest Inspection: Normal Inspection and Symmetric Chest Wall Rise; negative Tenderness Respiratory Respiratory Exam: Normal Lung Sounds Bilat; negative Accessory Muscle Use, Chest Wall Tenderness and Respiratory Distress Respiratory Exam: Bilateral: Rhonchi and Lower: Rhonchi Cardiovascular Cardiovascular Exam: Regular Rate, Normal Rhythm and Normal Heart Sounds; negative Systolic Murmur and Diastolic Murmur Abdominal Exam Abdominal Exam: Normal Inspection, Normal Bowel Sounds and Soft; negative Tenderness Extremeties Extremities Exam: Normal Inspection and Normal Capillary Refill Back Back Exam: Normal Inspection; negative (R) CVA Tenderness and (L) CVA Tenderness Neurologic Neurological Exam: Alert and Oriented X3; negative Motor Sensory Deficit Psychiatric Psychiatric Exam: Normal Affect and Normal Mood Skin Skin Exam: Warm, Dry, Intact and Normal Color MDM Additional Information Additional Information Obtained From: Old Records Differential Diagnosis Differential Diagnosis: Pneumonia (PE, UTI, ), Sinsusitis and URI COURSE Treatment Treatment: SEE ORDERS. ROR Labs Reviewed Laboratory Results Reviewed?: Yes Result Diagrams: 08/20/21 05:50 08/20/21 05:50 Laboratory: 08/17/21 12:42 Blood Blood Culture - Preliminary 08/17/21 12:36 Blood Blood Culture - Preliminary WBC 15.0 X10^3/uL (3.6-10.0) H 08/17/21 10:05 RBC 5.17 X10^6/uL (4.7-6.0) 08/17/21 10:05 Hgb 15.8 g/dL (13.5-18.0) 08/17/21 10:05 Hct 46.6 % (42.0-54.0) 08/17/21 10:05 MCV 90.1 fL (80.0-100.0) 08/17/21 10:05 MCH 30.5 pg (27.0-34.0) 08/17/21 10:05 MCHC 33.8 g/dL (33.0-35.0) 08/17/21 10:05 RDW 14.0 % (11.6-16.5) 08/17/21 10:05 Plt Count 92 X10^3/uL (150.0-450.0) L 08/17/21 10:05 MPV 9.8 fL (7.4-11.0) 08/17/21 10:05 Neut % (Auto) 88.9 % (42.0-75.0) H 08/17/21 10:05 Lymph % (Auto) 2.4 % (21.0-51.0) L 08/17/21 10:05 [place] % (Auto) 7.9 % (0.0-13.0) 08/17/21 10:05 Eos % (Auto) 0.4 % (0.9-2.9) L 08/17/21 10:05 Baso % (Auto) 0.4 % (0.2-1.0) 08/17/21 10:05 Neut # (Auto) 13.3 x10^3/uL (2.2-4.8) H 08/17/21 10:05 Lymph # (Auto) 0.4 X10^3/uL (1.3-2.9) L 08/17/21 10:05 [place] # (Auto) 1.2 x10^3/uL (0.3-0.8) H 08/17/21 10:05 Eos # (Auto) 0.1 x10^3/uL (0.0-0.2) 08/17/21 10:05 Baso # (Auto) 0.1 X10^3/uL (0.0-0.1) 08/17/21 10:05 Absolute Nucleated RBC 0.1 /100WBC 08/17/21 10:05 D-Dimer 3.93 ug/ml (0.0-0.57) H* 08/17/21 10:05 Sample Site Lr 08/17/21 09:57 ABG pH 7.520 (7.35-7.45) H 08/17/21 09:57 ABG pCO2 34.0 mmHg (35.0-45.0) L 08/17/21 09:57 ABG pO2 56.0 mmHg (80.0-100.0) L 08/17/21 09:57 ABG HCO3 27.8 mmol/L (22-26) H 08/17/21 09:57 ABG O2 Saturation 92.0 % (90-100) 08/17/21 09:57 ABG Base Excess 5.0 mmol/L (-2.0-2.0) H 08/17/21 09:57 Nakul Test Pos 08/17/21 09:57 A-a Gradient 187.0 mmHg 08/17/21 09:57 FiO2 40.0 08/17/21 09:57 Blood Gas Comments Pt karla well llj watch adjuster 08/17/21 09:57 Sodium 135 mmol/L (136-145) L 08/17/21 10:05 Corrected Sodium 137 mmol/L (136-145) 08/17/21 10:05 Potassium 4.6 mmol/L (3.5-5.1) 08/17/21 10:05 Chloride 100 mmol/L (98-107) 08/17/21 10:05 Carbon Dioxide 27.4 mmol/L (21-32) 08/17/21 10:05 BUN 25 mg/dL (7-18) H 08/17/21 10:05 Creatinine 0.93 mg/dL (0.70-1.30) 08/17/21 10:05 Est GFR (MDRD) Af Amer > 60 (>60) 08/17/21 10:05 Est GFR (MDRD) Non-Af > 60 (>60) 08/17/21 10:05 Glucose 199 mg/dL (65-99) H 08/17/21 10:05 Hemoglobin A1c 7.4 % 08/17/21 10:05 Calcium 8.9 mg/dL (8.5-10.1) 08/17/21 10:05 Corrected Calcium 10.3 mg/dL (8.5-10.1) H 08/17/21 10:05 Total Bilirubin 1.40 mg/dL (0.2-1.0) H 08/17/21 10:05 AST 29 Units/L (15-37) 08/17/21 10:05 ALT 70 Units/L (12-78) 08/17/21 10:05 Alkaline Phosphatase 83 Units/L (46-116) 08/17/21 10:05 Creatine Kinase 87 Units/L (39-308) 08/17/21 10:05 CK-MB (CK-2) 1.9 ng/mL (0-4.0) 08/17/21 10:05 CK/CKMB % Calc 2.2 % (<4) 08/17/21 10:05 Troponin I < 0.02 ng/mL (0-1.5) 08/17/21 10:05 B-Natriuretic Peptide 17.4 pg/mL (0-79) 08/17/21 10:05 Total Protein 6.4 g/dL (6.4-8.2) 08/17/21 10:05 Albumin 2.2 g/dL (3.4-5.0) L 08/17/21 10:05 Globulin 4.2 g/dL (2.5-4.5) 08/17/21 10:05 Albumin/Globulin Ratio 0.5 Ratio (1.1-2.1) L 08/17/21 10:05 Specimen Type Clean catch urine 08/17/21 12:12 Urine Color Yellow (YELLOW) 08/17/21 12:12 Urine Appearance Clear (CLEAR) 08/17/21 12:12 Urine pH 7.0 (5.0 - 8.0) 08/17/21 12:12 Ur Specific [place] 1.010 (1.000-1.030) 08/17/21 12:12 Urine Protein 2+ (NEGATIVE) 08/17/21 12:12 Urine Glucose (UA) Negative (NEGATIVE) 08/17/21 12:12 Urine Ketones Negative (NEGATIVE) 08/17/21 12:12 Urine Occult Blood 2+ (NEGATIVE) 08/17/21 12:12 Urine Nitrite Negative (NEGATIVE) 08/17/21 12:12 Urine Bilirubin Negative (NEGATIVE) 08/17/21 12:12 Urine Urobilinogen 1+ (NORMAL) 08/17/21 12:12 Ur Leukocyte Esterase Negative (NEGATIVE) 08/17/21 12:12 Urine RBC 3-5 /HPF (0-3) A 08/17/21 12:12 Urine WBC 0-2 /HPF (0-5) 08/17/21 12:12 Ur Squamous Epith Cells Negative /HPF (NEGATIVE) 08/17/21 12:12 Amorphous Sediment 1+ /HPF (NEGATIVE) 08/17/21 12:12 Urine Bacteria 1+ /HPF (NEGATIVE) 08/17/21 12:12 Coarse Granular Casts Rare /HPF (NEGATIVE) 08/17/21 12:12 Urine Mucus Few /HPF (NEGATIVE) 08/17/21 12:12 Ur Culture Indicated? No/not indicated 08/17/21 12:12 Acetone, Semi-Quant Negative (NEGATIVE) 08/17/21 10:05 SARS-CoV-2 (PCR) Negative (NEGATIVE) 08/17/21 11:37 Influenza Type A (PCR) Negative (NEGATIVE) 08/17/21 11:37 Influenza Type B (PCR) Negative (NEGATIVE) 08/17/21 11:37 RSV (PCR) Negative (NEGATIVE) 08/17/21 11:37 EKG [place]: Normal Rhythm: NSR Block: None Hypertrophy: None ST: Nonsp Opioid Opioid Risk Tool Age (James box if 16-45): Yes History of Preadolescent Sexual Abuse: No Total: 1 Total Score Risk Category: Low Risk Copyright: Sarkis HOLDER predicting aberrant behaviors Diagnosis Discharge Problem: Hypoxia Pneumonia Qualifiers: Pneumonia type: due to unspecified organism Laterality: bilateral Lung location: lower lobe of lung Qualified Code(s): J18.9 - Pneumonia, unspecified organism
[2021-08-17] MEDS ORDERED: NS 1000 ML 1,000 ML ONE (09:58)
[2021-08-17] MEDS ORDERED: NS 1000 ML 1,000 ML IV SCH ×2 (10:00→15:15)
[2021-08-17 10:08] LABS: ABG HCO3 27.8 mmol/L (22-26)
[2021-08-17 10:09] LABS: ABG ALLEN TEST POS
[2021-08-17 10:15] LABS: BASOPHILS # (AUTO) 0.1 X10^3/uL (0.0-0.1); BASOPHILS % (AUTO) 0.4 % (0.2-1.0); EOSINOPHILS # (AUTO) 0.1 x10^3/uL (0.0-0.2); EOSINOPHILS % (AUTO) 0.4 % (0.9-2.9); HEMATOCRIT 46.6 % (42.0-54.0); HEMOGLOBIN 15.8 g/dL (13.5-18.0); LYMPHOCYTES # (AUTO) 0.4 X10^3/uL (1.3-2.9); LYMPHOCYTES % (AUTO) 2.4 % (21.0-51.0); MEAN CORPUSCULAR HEMOGLOBIN 30.5 pg (27.0-34.0); MEAN CORPUSCULAR HGB CONC 33.8 g/dL (33.0-35.0); MEAN CORPUSCULAR VOLUME 90.1 fL (80.0-100.0); MEAN PLATELET VOLUME 9.8 fL (7.4-11.0); MONOCYTES # (AUTO) 1.2 x10^3/uL (0.3-0.8); MONOCYTES % (AUTO) 7.9 % (0.0-13.0); NEUTROPHILS # (AUTO) 13.3 x10^3/uL (2.2-4.8); NEUTROPHILS % (AUTO) 88.9 % (42.0-75.0); PLATELET COUNT 92 X10^3/uL (150.0-450.0); RED BLOOD COUNT 5.17 X10^6/uL (4.7-6.0)
[2021-08-17 10:38] LABS: ALANINE AMINOTRANSFERASE 70 Units/L (12-78); ALBUMIN 2.2 g/dL (3.4-5.0); ALKALINE PHOSPHATASE 83 Units/L (46-116); ASPARTATE AMINO TRANSFERASE 29 Units/L (15-37); BLOOD UREA NITROGEN 25 mg/dL (7-18); CALCIUM 8.9 mg/dL (8.5-10.1); CARBON DIOXIDE 27.4 mmol/L (21-32); CHLORIDE 100 mmol/L (98-107); CKMB % 2.2 % (<4); COR CA(FOR HYPOALB) 10.3 mg/dL (8.5-10.1); COR NA(FOR HYPERGLY) 137 mmol/L (136-145); CREATINE KINASE 87 Units/L (39-308); CREATINE KINASE MB 1.9 ng/mL (0-4.0); CREATININE 0.93 mg/dL (0.70-1.30); SODIUM 135 mmol/L (136-145); TOTAL PROTEIN 6.4 g/dL (6.4-8.2); TROPONIN I < 0.02 ng/mL (0-1.5); eGFR NON BLACK RACES > 60 (>60)
[2021-08-17] MEDS ORDERED: NS 100 ML IV 100 ML ONE (10:47)
[2021-08-17 11:01] LABS: HEMOGLOBIN A1C 7.4 %
[2021-08-17 11:07] LABS: SERUM ACETONE NEGATIVE (NEGATIVE)
--- NOTE | 2021-08-17 11:34 | CT ---
HISTORYCOVID+, SHAUNJACOBRAYAWILDA [id number]/04/2021TECHNIQUECT of the chest was obtained with IV contrast. Reformatted images in the coronal sagittal planes and 3D MIP images also generated for review.FINDINGSContrast bolus timing is adequate for detection of PTE. No central or segmental pulmonary arterial filling defects are identified. There is no significant pulmonary arterial dilatation or evidence of right heart strain. There is no significant pericardial effusion. There is mild-moderate coronary atherosclerotic disease. Thoracic aorta and proximal great vessels are mildly calcified without aneurysm. Major central airways are patent. There is no mediastinal or bulky hilar lymphadenopathy.Evaluation of the lungs demonstrate scattered areas of predominantly peripheral ground-glass and dense airspace consolidation, which appear worsened when compared to the patient's prior CTA chest exam. There is a trace left pleural effusion. There is no pneumomediastinum or pneumothorax.Cholelithiasis noted. Limited images through the upper abdomen otherwise demonstrate no acute abnormality. There is no acute osseous abnormality.IMPRESSIONNegative for central or segmental PTE.Bilateral airspace disease, progressed since the patient's prior CTA and compatible with persistent and worsening multifocal atypical pneumonia from COVID-19 infection.New small left pleural effusion.Cholelithiasis and additional chronic findings as above.Electronically signed by: JULISSA ALLEN (Aug 17, 2021 11:32:15)
[2021-08-17] MEDS ORDERED: LASIX IVP ONE ×2 (12:14→12:19)
[2021-08-17] MEDS: NS 1000 ML 1,000 ML IV SCH (12:24)
[2021-08-17] MEDS ORDERED: ZOSYN VIAL 3.375 GRAMS 3.375 G in NS 100 ML IV + SPIKE MINIBAG* 100 ML IV ONE (12:25)
[2021-08-17] MEDS ORDERED: ZOSYN VIAL 3.375 GRAMS IV ONE (12:27)
[2021-08-17] MEDS ORDERED: NS 100 ML IV + SPIKE MINIBAG* 100 ML IV ONE (12:28)
[2021-08-17 12:39] LABS: APPEARANCE,URINE CLEAR (CLEAR); BILIRUBIN,URINE NEGATIVE (NEGATIVE); BLOOD/HEMOGLOBIN,URINE 2+ (NEGATIVE); COLOR,URINE YELLOW (YELLOW); GLUCOSE, URINE NEGATIVE (NEGATIVE); KETONES,URINE NEGATIVE (NEGATIVE); LEUKOCYTE ESTERASE ,URINE NEGATIVE (NEGATIVE); NITRITES,URINE NEGATIVE (NEGATIVE); PROTEIN,URINE 2+ (NEGATIVE); UROBILINOGEN,URINE 1+ (NORMAL)
[2021-08-17 12:46] LABS: AMORPHOUS SEDIMENT,UR 1+ /HPF (NEGATIVE); BACTERIA,URINE 1+ /HPF (NEGATIVE); COARSE GRANULAR CASTS,URINE RARE /HPF (NEGATIVE); MUCUS,URINE FEW /HPF (NEGATIVE); SQUAMOUS EPITHELIAL CELL,UR NEGATIVE /HPF (NEGATIVE)
[2021-08-17] MEDS: ZOSYN VIAL 3.375 GRAMS 3.375 G in NS 100 ML IV + SPIKE MINIBAG* 100 ML IV SCH ×3 (12:49→21:03)
--- NOTE | 2021-08-17 13:19 | DR.H&P ---
H&P - History & Physical for Day of: H&P Date: 08/17/21 - Chief Complaint Chief Complaint: SOB - History of Present Illness History of Present Illness: PT IS 71 WM ER ADMISSION WITH SOB. PT WAS ADMITTED ON WEDNESDAY FOR REHAB THERAPY FOLLOWING ACUTE WEAKNESS FROM COVID 19 ILLNESS. PT HAS BEEN ON SUPPLEMENTAL O2 FOR TREATMENT OF PNEUMONIA AND HYPOXIA SENT HOSPITAL ADMISSION. [facility] REPORTS PT WITH O2 SATS DROPPED DOWN TO 70s%. PT HAS PMH OF HTN AND OA. - Past Medical History Past Medical History: Hypertension, Arthritis - Past Surgical History Surgical History: Ortho Surgery - Family History Family Medical History: Diabetes Mellitus, [place], Hypertension - Social History Does patient currently use any type of tobacco product: No Have you used tobacco products in the last 12 months: No Type of Tobacco Use: None Does any household member use tobacco: No Alcohol Use: None Drug Use: None - Medications Home Medications: No Known Drug Allergies Allergy (Verified 08/04/21 14:38) CONTINUE taking the following medications amlodipine [Norvasc] 5 mg PO DAILY 08/17/21 [History] azithromycin [Zithromax] 250 mg PO DAILY 08/17/21 [History] ipratropium-albuterol 0.5 ml INHALATION Q6H PRN 08/17/21 [History] levofloxacin [Levaquin] 250 mg PO DAILY 08/17/21 [History] prednisone 10 mg PO DIRECTED 08/17/21 [History] - Review of Systems Constitutional: Weakness, Malaise Eyes: No Symptoms Reported ENT: No Symptoms Reported Respiratory: SOB with Excertion Gastrointestinal: Nausea Genitourinary: No Symptoms Reported Musculoskeletal: No Symptoms Reported Skin: No Symptoms Reported Neurological: Weakness - Physical Exam Vital Signs: Temperature 98.0 F Pulse Rate 93 Respiratory Rate 31 Blood Pressure [Left Arm] 149/70 Blood Pressure [Right Arm] 118/60 Blood Pressure 127/64 O2 Sat by Pulse Oximetry 95 Oriented: Normal Eyes: Normal Ear: Normal Nose: Normal Throat: Dry Respiratory: Diminished Throughout, Wheezes Throughout Cardiovascular: Tachycardia. negative: Edema : Normal Auscultation: Bowel Sounds: Normal Palpation: Normal Tenderness: Normal Skin: Decreased Turgur Musculoskeletal: Back:Lumbar Psychiatric: Anxiety Affect: Anxious Speech Pattern: Clear, Appropriate - Assessment/Plan (1) Acute respiratory distress Status: Acute Plan: HX OF COVID 19 PNEUMONIA WITH HYPOXIA. ADMIT, CARDIAC MONITORING, SUPPLEMENTAL O2. IV HYDRATION, CTA ON ADMISSION IN ER. VERIFY HOME MEDICATIONS. PT/RT/OT (2) Hypertension Status: Acute (3) Arthritis Status: Acute (4) Hypoxia Status: Acute (5) Pneumonia Qualifiers: Pneumonia type: due to unspecified organism Laterality: bilateral Lung location: lower lobe of lung Qualified Code(s): J18.9 - Pneumonia, unspecified organism Status: Acute - Allergies Allergies/Adverse Reactions: Allergies Allergy/AdvReac Type Severity Reaction Status Date / Time No Known Drug Allergies Allergy Verified 08/04/21 14:38
[2021-08-17] MEDS ORDERED: DUONEB 0.5 MG/3 MG (3 mL) NEB PRN (14:34)
[2021-08-17] MEDS: ZITHROMAX INJ 500 MG VIAL 500 MG in D5W 250 ML IV 250 ML IV SCH (15:13)
[2021-08-17] MEDS ORDERED: ASCORBIC ACID INJ MULTI-DOSE VIAL 1,500 MG in NS 100 ML IV 100 ML IV SCH (15:15)
[2021-08-17] MEDS ORDERED: ZOSYN VIAL 3.375 GRAMS 3.375 G in NS 100 ML IV + SPIKE MINIBAG* 100 ML IV SCH (15:15)
[2021-08-17] MEDS: SOLU-Medrol 40 MG VIAL IVP SCH ×2 (16:50→21:04)
[2021-08-17] MEDS ORDERED: DUONEB 0.5 MG/3 MG (3 mL) NEB SCH ×2 (17:00→18:00)
[2021-08-17] MEDS ORDERED: PULMICORT NEB TX 0.5 MG NEB ONE (20:58)
[2021-08-17] MEDS ORDERED: BROVANA ONE (20:58)
[2021-08-17] MEDS ORDERED: ZINC SULFATE PO SCH (21:00)
[2021-08-17] MEDS ORDERED: XOPENEX 1.25 MG/3 ML NEBULE NEB SCH (21:00)
[2021-08-17] MEDS: PEPCID TAB 40 MG PO SCH (21:03)
[2021-08-17] MEDS ORDERED: XOPENEX 1.25 MG/3 ML NEBULE NEB PRN (21:06)
[2021-08-17] MEDS: PULMICORT NEB TX 0.5 MG NEB SCH (21:06)
[2021-08-17] MEDS: BROVANA IN SCH (21:06)
[2021-08-17] MEDS: CELEXA PO SCH (21:27)
[2021-08-17] MEDS: KLONOPIN TAB 0.5 MG PO SCH (21:27)
[2021-08-17] MEDS: HumuLIN R SUBCUT PRN (22:28)
[2021-08-18] MEDS: XOPENEX 1.25 MG/3 ML NEBULE NEB SCH ×3 (00:05→13:00)
[2021-08-18 04:56] LABS: ABG ALLEN TEST POS; ABG BASE EXCESS 6.1 mmol/L (-2.0-2.0); ABG HCO3 31.2 mmol/L (22-26)
--- NOTE | 2021-08-18 05:37 | RAD ---
HISTORYSOB PSH: ORTHOSTUDYCHEST, 1 [id number]/14/2021FINDINGSThe trachea is midline. The cardiac silhouette is unremarkable. Patchy bilateral airspace and interstitial opacities. No pneumothorax. The bony thorax is unremarkable.IMPRESSIONStable portable chestElectronically signed by: Ismael Barnes (Aug 18, 2021 05:35:47)
[2021-08-18] MEDS: SOLU-Medrol 40 MG VIAL IVP SCH ×3 (05:39→21:01)
[2021-08-18] MEDS: ZOSYN VIAL 3.375 GRAMS 3.375 G in NS 100 ML IV + SPIKE MINIBAG* 100 ML IV SCH ×3 (05:39→21:01)
[2021-08-18] MEDS: HumuLIN R SUBCUT PRN ×4 (05:40→20:57)
[2021-08-18 06:13] LABS: BASOPHILS % (AUTO) 0.3 % (0.2-1.0); EOSINOPHILS % (AUTO) 0.1 % (0.9-2.9); HEMATOCRIT 40.5 % (42.0-54.0); HEMOGLOBIN 13.9 g/dL (13.5-18.0); LYMPHOCYTES # (AUTO) 0.2 X10^3/uL (1.3-2.9); LYMPHOCYTES % (AUTO) 2.7 % (21.0-51.0); MEAN CORPUSCULAR HGB CONC 34.4 g/dL (33.0-35.0); MEAN PLATELET VOLUME 10.8 fL (7.4-11.0); MONOCYTES # (AUTO) 0.2 x10^3/uL (0.3-0.8); MONOCYTES % (AUTO) 2.3 % (0.0-13.0); NEUTROPHILS # (AUTO) 8.4 x10^3/uL (2.2-4.8); NEUTROPHILS % (AUTO) 94.6 % (42.0-75.0); PLATELET COUNT 77 X10^3/uL (150.0-450.0); RED CELL DISTRIBUTION WIDTH 13.7 % (11.6-16.5); WHITE BLOOD COUNT 8.9 X10^3/uL (3.6-10.0)
[2021-08-18 06:18] LABS: ALANINE AMINOTRANSFERASE 71 Units/L (12-78); ALBUMIN 1.9 g/dL (3.4-5.0); ALKALINE PHOSPHATASE 81 Units/L (46-116); ASPARTATE AMINO TRANSFERASE 33 Units/L (15-37); BLOOD UREA NITROGEN 24 mg/dL (7-18); CALCIUM 8.3 mg/dL (8.5-10.1); CARBON DIOXIDE 27.7 mmol/L (21-32); CHLORIDE 101 mmol/L (98-107); COR NA(FOR HYPERGLY) 139 mmol/L (136-145); CREATININE 0.87 mg/dL (0.70-1.30); SODIUM 135 mmol/L (136-145); TOTAL PROTEIN 5.9 g/dL (6.4-8.2); eGFR NON BLACK RACES > 60 (>60)
[2021-08-18 06:56] LABS: BAND NEUTROPHILS % 8 % (0-10); PLATELET MORPHOLOGY COMMENT NORMAL (NORMAL)
[2021-08-18] MEDS ORDERED: VITAMIN D (1.25MG) PO SCH (09:00)
[2021-08-18] MEDS ORDERED: VITAMIN A PO SCH (09:00)
[2021-08-18] MEDS: PULMICORT NEB TX 0.5 MG NEB SCH ×2 (09:00→20:28)
[2021-08-18] MEDS ORDERED: LOVENOX INJ 30 MG SYR SC SCH (09:00)
[2021-08-18] MEDS: BROVANA IN SCH ×2 (09:00→20:28)
[2021-08-18] MEDS: ZINC SULFATE PO SCH (09:24)
[2021-08-18] MEDS: PEPCID TAB 40 MG PO SCH ×2 (09:24→20:56)
[2021-08-18] MEDS: VITAMIN C PO SCH (09:24)
[2021-08-18] MEDS: NORVASC TAB 5 MG PO SCH (09:25)
[2021-08-18] MEDS: KLONOPIN TAB 0.5 MG PO SCH ×2 (09:25→20:56)
[2021-08-18] MEDS: TRICOR TAB 160 MG PO SCH (09:25)
[2021-08-18] MEDS: ZITHROMAX INJ 500 MG VIAL 500 MG in D5W 250 ML IV 250 ML IV SCH (09:26)
[2021-08-18] MEDS: VITAMIN A PO SCH (09:30)
[2021-08-18] MEDS: NS 1000 ML 1,000 ML IV SCH (13:45)
[2021-08-18] MEDS: CELEXA PO SCH (20:56)
[2021-08-18] MEDS: SNACK - Diabetic Appropriate PO SCH (20:56)
[2021-08-19] MEDS: XOPENEX 1.25 MG/3 ML NEBULE NEB SCH ×4 (00:57→17:10)
[2021-08-19 05:00] LABS: ABG ALLEN TEST POS; ABG BASE EXCESS 5.8 mmol/L (-2.0-2.0); ABG HCO3 30.6 mmol/L (22-26)
[2021-08-19 05:15] LABS: BASOPHILS % (AUTO) 0.2 % (0.2-1.0); HEMATOCRIT 37.9 % (42.0-54.0); LYMPHOCYTES # (AUTO) 0.3 X10^3/uL (1.3-2.9); LYMPHOCYTES % (AUTO) 1.4 % (21.0-51.0); MEAN CORPUSCULAR HEMOGLOBIN 30.3 pg (27.0-34.0); MEAN CORPUSCULAR HGB CONC 34.3 g/dL (33.0-35.0); MEAN CORPUSCULAR VOLUME 88.6 fL (80.0-100.0); MEAN PLATELET VOLUME 10.6 fL (7.4-11.0); MONOCYTES % (AUTO) 5.3 % (0.0-13.0); NEUTROPHILS % (AUTO) 93.1 % (42.0-75.0); PLATELET COUNT 78 X10^3/uL (150.0-450.0); RED BLOOD COUNT 4.28 X10^6/uL (4.7-6.0); RED CELL DISTRIBUTION WIDTH 12.9 % (11.6-16.5); WHITE BLOOD COUNT 18.2 X10^3/uL (3.6-10.0)
[2021-08-19] MEDS: ZOSYN VIAL 3.375 GRAMS 3.375 G in NS 100 ML IV + SPIKE MINIBAG* 100 ML IV SCH ×3 (05:16→21:10)
[2021-08-19] MEDS: SOLU-Medrol 40 MG VIAL IVP SCH ×3 (05:16→21:10)
[2021-08-19 05:35] LABS: ALANINE AMINOTRANSFERASE 141 Units/L (12-78); ALBUMIN 1.8 g/dL (3.4-5.0); ALKALINE PHOSPHATASE 90 Units/L (46-116); ASPARTATE AMINO TRANSFERASE 64 Units/L (15-37); BLOOD UREA NITROGEN 23 mg/dL (7-18); CALCIUM 8.2 mg/dL (8.5-10.1); CARBON DIOXIDE 28.4 mmol/L (21-32); CHLORIDE 103 mmol/L (98-107); COR NA(FOR HYPERGLY) 140 mmol/L (136-145); CREATININE 0.78 mg/dL (0.70-1.30); SODIUM 136 mmol/L (136-145); TOTAL PROTEIN 5.4 g/dL (6.4-8.2); eGFR NON BLACK RACES > 60 (>60)
[2021-08-19 05:37] LABS: PLATELET MORPHOLOGY COMMENT NORMAL (NORMAL)
[2021-08-19] MEDS: HumuLIN R SUBCUT PRN ×5 (05:46→20:31)
--- NOTE | 2021-08-19 07:20 | RAD ---
HISTORYPNEUMONIA PSH: ORTHOSTUDYCHEST, 1 [id number]/18/2021FINDINGSThe trachea is midline. The cardiac silhouette is mildly enlarged. Patchy bilateral airspace opacities unchanged. No pneumothorax. The bony thorax is unremarkable.IMPRESSIONStable portable chestElectronically signed by: Ismael Barnes (Aug 19, 2021 07:19:00)
[2021-08-19] MEDS: BROVANA IN SCH ×2 (08:10→20:50)
[2021-08-19] MEDS: PULMICORT NEB TX 0.5 MG NEB SCH ×2 (08:10→20:50)
[2021-08-19] MEDS: NORVASC TAB 5 MG PO SCH (08:36)
[2021-08-19] MEDS: KLONOPIN TAB 0.5 MG PO SCH ×2 (08:36→20:30)
[2021-08-19] MEDS: ZITHROMAX INJ 500 MG VIAL 500 MG in D5W 250 ML IV 250 ML IV SCH (08:38)
[2021-08-19] MEDS: VITAMIN A PO SCH (08:38)
[2021-08-19] MEDS: PEPCID TAB 40 MG PO SCH ×2 (08:38→20:31)
[2021-08-19] MEDS: ZINC SULFATE PO SCH (08:39)
[2021-08-19] MEDS: VITAMIN C PO SCH (08:39)
[2021-08-19] MEDS: VITAMIN D3 125 mcg (5,000 UNITS) PO SCH (08:39)
[2021-08-19] MEDS: TRICOR TAB 160 MG PO SCH (08:40)
[2021-08-19] MEDS ORDERED: VITAMIN A PO SCH (09:00)
--- NOTE | 2021-08-19 20:06 | PCM.PROG ---
Progress Note - Progress Note for Day of Date of Exam: 08/18/21 - Subjective Subjective: Patient is a 71 year old white male with a history of COVID who was recently hospitalized due to COVID pneumonia and was [facility]. Patient required re-admission due to hypoxia and pneumonia. Patient states today he is feeling much better than previously. Patient reports he is able to cough up phlegm now. No other concerns at present. - Past Medical Family Social History Past Med/Fam/Surg Hx: No changes since H&P Allergies: Allergies No Known Drug Allergies Allergy (Verified 08/04/21 14:38) - Review of Systems ROS: No change since H&P - Vital Signs and I&O's Vital Signs: Temperature 99.0 F Pulse Rate [Left Brachial] 95 Pulse Rate 84 Respiratory Rate 24 Blood Pressure [Left Arm] 137/62 Blood Pressure [Right Arm] 127/59 Blood Pressure 127/64 O2 Sat by Pulse Oximetry 85 Intake and Output: Intake & Output 08/16/21 08/17/21 08/18/21 08/19/21 23:59 23:59 23:59 23:59 Intake Total 865 / 865 2031 / 203 940 / 940 Output Total 1430 / 1430 1500 / 1500 1075 / 1075 Balance -565 / -565 532 / 532 -135 / -135 - Physical Exam Oriented: Normal Eyes: Normal Ear: Normal Nose: Normal Throat: Dry Respiratory: Diminished, Rhonchi Cardiovascular: Tachycardia. negative: Edema : Normal Auscultation: Bowel Sounds: Normal Palpation: Normal Tenderness: Normal Skin: Decreased Turgur Musculoskeletal: Back:Lumbar Psychiatric: Anxiety Mood Description: Calm, Anxious Affect: Anxious Speech Pattern: Clear, Appropriate - Laboratory and Diagnostics Result Diagrams: 08/19/21 04:12 08/19/21 04:12 Labs: 08/17/21 12:42 Blood Blood Culture - Preliminary 08/17/21 12:36 Blood Blood Culture - Preliminary 08/17/21 14:25 Sputum - Expectorated Sputum Sputum Culture - Final 08/17/21 14:25 Sputum - Expectorated Sputum - Final Laboratory WBC 18.2 X10^3/uL (3.6-10.0) H D 08/19/21 04:12 RBC 4.28 X10^6/uL (4.7-6.0) L 08/19/21 04:12 Hgb 13.0 g/dL (13.5-18.0) L 08/19/21 04:12 Hct 37.9 % (42.0-54.0) L 08/19/21 04:12 MCV 88.6 fL (80.0-100.0) 08/19/21 04:12 MCH 30.3 pg (27.0-34.0) 08/19/21 04:12 MCHC 34.3 g/dL (33.0-35.0) 08/19/21 04:12 RDW 12.9 % (11.6-16.5) 08/19/21 04:12 Plt Count 78 X10^3/uL (150.0-450.0) L 08/19/21 04:12 Plt Count Comment Decreased (ADEQUATE) 08/19/21 04:12 MPV 10.6 fL (7.4-11.0) 08/19/21 04:12 Neut % (Auto) 93.1 % (42.0-75.0) H 08/19/21 04:12 Lymph % (Auto) 1.4 % (21.0-51.0) L 08/19/21 04:12 [place] % (Auto) 5.3 % (0.0-13.0) 08/19/21 04:12 Eos % (Auto) 0.0 % (0.9-2.9) L 08/19/21 04:12 Baso % (Auto) 0.2 % (0.2-1.0) 08/19/21 04:12 Neut # (Auto) 17.0 x10^3/uL (2.2-4.8) H 08/19/21 04:12 Lymph # (Auto) 0.3 X10^3/uL (1.3-2.9) L 08/19/21 04:12 [place] # (Auto) 1.0 x10^3/uL (0.3-0.8) H 08/19/21 04:12 Eos # (Auto) 0.0 x10^3/uL (0.0-0.2) 08/19/21 04:12 Baso # (Auto) 0.0 X10^3/uL (0.0-0.1) 08/19/21 04:12 Absolute Nucleated RBC 0.0 /100WBC 08/19/21 04:12 Total Counted 100 08/19/21 04:12 Neutrophils % (Manual) 99 % (39-76) H 08/19/21 04:12 Band Neutrophils % 8 % (0-10) 08/18/21 04:13 Lymphocytes % (Manual) 1 % (13-43) L 08/19/21 04:12 Monocytes % (Manual) 1 % (4-9) L 08/18/21 04:13 Plt Morphology Comment Normal (NORMAL) 08/19/21 04:12 RBC Morphology Normal (NORMAL) 08/19/21 04:12 D-Dimer 3.93 ug/ml (0.0-0.57) H* 08/17/21 10:05 Sample Site Rrad 08/19/21 05:00 ABG pH 7.450 (7.35-7.45) 08/19/21 05:00 ABG pCO2 44.0 mmHg (35.0-45.0) 08/19/21 05:00 ABG pO2 64.0 mmHg (80.0-100.0) L 08/19/21 05:00 ABG HCO3 30.6 mmol/L (22-26) H* 08/19/21 05:00 ABG O2 Saturation 93.0 % (90-100) 08/19/21 05:00 ABG Base Excess 5.8 mmol/L (-2.0-2.0) H 08/19/21 05:00 Nakul Test Pos 08/19/21 05:00 A-a Gradient 551.0 mmHg 08/19/21 05:00 FiO2 94.0 08/19/21 05:00 Blood Gas Comments Cj well mts 08/19/21 05:00 Sodium 136 mmol/L (136-145) 08/19/21 04:12 Corrected Sodium 140 mmol/L (136-145) 08/19/21 04:12 Potassium 4.1 mmol/L (3.5-5.1) 08/19/21 04:12 Chloride 103 mmol/L (98-107) 08/19/21 04:12 Carbon Dioxide 28.4 mmol/L (21-32) 08/19/21 04:12 BUN 23 mg/dL (7-18) H 08/19/21 04:12 Creatinine 0.78 mg/dL (0.70-1.30) 08/19/21 04:12 Est GFR (MDRD) Af Amer > 60 (>60) 08/19/21 04:12 Est GFR (MDRD) Non-Af > 60 (>60) 08/19/21 04:12 Glucose 263 mg/dL (65-99) H 08/19/21 04:12 POC Glucose (mg/dL) 338 mg/dL (65-99) H 08/19/21 19:59 Hemoglobin A1c 7.4 % 08/17/21 10:05 Calcium 8.2 mg/dL (8.5-10.1) L 08/19/21 04:12 Corrected Calcium 10.0 mg/dL (8.5-10.1) 08/19/21 04:12 Total Bilirubin 0.70 mg/dL (0.2-1.0) 08/19/21 04:12 AST 64 Units/L (15-37) H 08/19/21 04:12 ALT 141 Units/L (12-78) H 08/19/21 04:12 Alkaline Phosphatase 90 Units/L (46-116) 08/19/21 04:12 Creatine Kinase 87 Units/L (39-308) 08/17/21 10:05 CK-MB (CK-2) 1.9 ng/mL (0-4.0) 08/17/21 10:05 CK/CKMB % Calc 2.2 % (<4) 08/17/21 10:05 Troponin I < 0.02 ng/mL (0-1.5) 08/17/21 10:05 B-Natriuretic Peptide 17.4 pg/mL (0-79) 08/17/21 10:05 Total Protein 5.4 g/dL (6.4-8.2) L 08/19/21 04:12 Albumin 1.8 g/dL (3.4-5.0) L 08/19/21 04:12 Globulin 3.6 g/dL (2.5-4.5) 08/19/21 04:12 Albumin/Globulin Ratio 0.5 Ratio (1.1-2.1) L 08/19/21 04:12 Specimen Type Clean catch urine 08/17/21 12:12 Urine Color Yellow (YELLOW) 08/17/21 12:12 Urine Appearance Clear (CLEAR) 08/17/21 12:12 Urine pH 7.0 (5.0 - 8.0) 08/17/21 12:12 Ur Specific [place] 1.010 (1.000-1.030) 08/17/21 12:12 Urine Protein 2+ (NEGATIVE) 08/17/21 12:12 Urine Glucose (UA) Negative (NEGATIVE) 08/17/21 12:12 Urine Ketones Negative (NEGATIVE) 08/17/21 12:12 Urine Occult Blood 2+ (NEGATIVE) 08/17/21 12:12 Urine Nitrite Negative (NEGATIVE) 08/17/21 12:12 Urine Bilirubin Negative (NEGATIVE) 08/17/21 12:12 Urine Urobilinogen 1+ (NORMAL) 08/17/21 12:12 Ur Leukocyte Esterase Negative (NEGATIVE) 08/17/21 12:12 Urine RBC 3-5 /HPF (0-3) A 08/17/21 12:12 Urine WBC 0-2 /HPF (0-5) 08/17/21 12:12 Ur Squamous Epith Cells Negative /HPF (NEGATIVE) 08/17/21 12:12 Amorphous Sediment 1+ /HPF (NEGATIVE) 08/17/21 12:12 Urine Bacteria 1+ /HPF (NEGATIVE) 08/17/21 12:12 Coarse Granular Casts Rare /HPF (NEGATIVE) 08/17/21 12:12 Urine Mucus Few /HPF (NEGATIVE) 08/17/21 12:12 Ur Culture Indicated? No/not indicated 08/17/21 12:12 Acetone, Semi-Quant Negative (NEGATIVE) 08/17/21 10:05 SARS-CoV-2 (PCR) Negative (NEGATIVE) 08/17/21 11:37 Influenza Type A (PCR) Negative (NEGATIVE) 08/17/21 11:37 Influenza Type B (PCR) Negative (NEGATIVE) 08/17/21 11:37 RSV (PCR) Negative (NEGATIVE) 08/17/21 11:37 - Plan (1) Pneumonia due to COVID-19 virus Status: Acute Plan: IV abx and steroids, duo nebs, repeat ABG, labs, CXR in am, Continue high flow oxygen. (2) Acute hypoxemic respiratory failure due to COVID-19 Status: Acute Plan: as above (3) Acute respiratory distress Status: Acute Plan: HX OF COVID 19 PNEUMONIA WITH HYPOXIA. ADMIT, CARDIAC MONITORING, SUPPLEMENTAL O2. IV HYDRATION, CTA ON ADMISSION IN ER NEGATIVE FOR PE. PT/RT/OT (4) Hypoxia Status: Acute Plan: ABOVE
[2021-08-19] MEDS: SNACK - Diabetic Appropriate PO SCH (20:29)
[2021-08-19] MEDS: CELEXA PO SCH (20:30)
[2021-08-20] MEDS: XOPENEX 1.25 MG/3 ML NEBULE NEB SCH ×4 (00:20→17:00)
[2021-08-20] MEDS ORDERED: VALIUM INJ IVP PRN (03:43)
[2021-08-20] MEDS ORDERED: VALIUM INJ ONE (03:52)
[2021-08-20 04:16] LABS: ABG BASE EXCESS 7.4 mmol/L (-2.0-2.0)
[2021-08-20 04:19] LABS: ABG ALLEN TEST POS
[2021-08-20] MEDS: SOLU-Medrol 40 MG VIAL IVP SCH ×3 (05:06→23:36)
[2021-08-20] MEDS: ZOSYN VIAL 3.375 GRAMS 3.375 G in NS 100 ML IV + SPIKE MINIBAG* 100 ML IV SCH ×3 (05:06→23:36)
[2021-08-20] MEDS: HumuLIN R SUBCUT PRN ×3 (05:41→23:41)
[2021-08-20 06:42] LABS: BASOPHILS % (AUTO) 0.1 % (0.2-1.0); HEMATOCRIT 39.2 % (42.0-54.0); HEMOGLOBIN 13.3 g/dL (13.5-18.0); LYMPHOCYTES # (AUTO) 0.3 X10^3/uL (1.3-2.9); LYMPHOCYTES % (AUTO) 1.4 % (21.0-51.0); MEAN CORPUSCULAR HEMOGLOBIN 30.4 pg (27.0-34.0); MEAN CORPUSCULAR VOLUME 89.6 fL (80.0-100.0); MEAN PLATELET VOLUME 10.2 fL (7.4-11.0); MONOCYTES # (AUTO) 1.2 x10^3/uL (0.3-0.8); MONOCYTES % (AUTO) 6.2 % (0.0-13.0); NEUTROPHILS # (AUTO) 18.2 x10^3/uL (2.2-4.8); NEUTROPHILS % (AUTO) 92.3 % (42.0-75.0); PLATELET COUNT 73 X10^3/uL (150.0-450.0); RED BLOOD COUNT 4.38 X10^6/uL (4.7-6.0); RED CELL DISTRIBUTION WIDTH 13.2 % (11.6-16.5); WHITE BLOOD COUNT 19.7 X10^3/uL (3.6-10.0)
[2021-08-20 06:44] LABS: ALANINE AMINOTRANSFERASE 125 Units/L (12-78); ALBUMIN 1.9 g/dL (3.4-5.0); ALKALINE PHOSPHATASE 109 Units/L (46-116); ASPARTATE AMINO TRANSFERASE 37 Units/L (15-37); BLOOD UREA NITROGEN 22 mg/dL (7-18); CALCIUM 8.4 mg/dL (8.5-10.1); CARBON DIOXIDE 28.9 mmol/L (21-32); CHLORIDE 103 mmol/L (98-107); COR CA(FOR HYPOALB) 10.1 mg/dL (8.5-10.1); COR NA(FOR HYPERGLY) 141 mmol/L (136-145); CREATININE 0.79 mg/dL (0.70-1.30); SODIUM 138 mmol/L (136-145); TOTAL PROTEIN 5.7 g/dL (6.4-8.2); eGFR NON BLACK RACES > 60 (>60)
[2021-08-20 07:09] LABS: BAND NEUTROPHILS % 4 % (0-10); PLATELET MORPHOLOGY COMMENT NORMAL (NORMAL)
[2021-08-20] MEDS: BROVANA IN SCH ×2 (08:30→19:50)
[2021-08-20] MEDS: PULMICORT NEB TX 0.5 MG NEB SCH ×2 (08:30→19:50)
--- NOTE | 2021-08-20 09:05 | RAD ---
HISTORYSHORTNESS OF BREATH Relevant Clinical InformationSTUDYCHEST, 1 [id number]/19/2021FINDINGSThe trachea is midline. There is stable mild cardiomegaly. There is persistent diffuse confluent ground-glass radiopacities since prior there has been mild interval worsening in the left lung with denser peripheral radiopacities. There is air bronchogram in the left base. No evidence of subcutaneous emphysema or pneumothorax. No dominant pleural effusionsIMPRESSIONPersistent diffuse ground-glass and alveolar radiopacities with interval worsening in the left lung along the periphery and more denser radiopacities.Electronically signed by: Michelle Gayle (Aug 20, 2021 09:03:46)
[2021-08-20 09:23] LABS: ABG BASE EXCESS 8.1 mmol/L (-2.0-2.0)
[2021-08-20 09:25] LABS: ABG ALLEN TEST POS
[2021-08-20] MEDS: ZITHROMAX INJ 500 MG VIAL 500 MG in D5W 250 ML IV 250 ML IV SCH (09:32)
[2021-08-20] MEDS: VITAMIN D3 125 mcg (5,000 UNITS) PO SCH ×2 (09:33→11:02)
[2021-08-20] MEDS: TRICOR TAB 160 MG PO SCH ×2 (09:33→11:00)
[2021-08-20] MEDS: ZINC SULFATE PO SCH ×2 (09:33→11:02)
[2021-08-20] MEDS: VITAMIN A PO SCH ×2 (09:33→11:00)
[2021-08-20] MEDS: VITAMIN C PO SCH ×2 (09:33→11:02)
[2021-08-20] MEDS: NORVASC TAB 5 MG PO SCH ×2 (09:34→10:59)
[2021-08-20] MEDS: PEPCID TAB 40 MG PO SCH ×3 (09:34→23:36)
[2021-08-20] MEDS: KLONOPIN TAB 0.5 MG PO SCH ×3 (09:35→22:22)
[2021-08-20] MEDS ORDERED: HALDOL INJ IM ONE (09:40)
[2021-08-20] MEDS ORDERED: HALDOL INJ ONE (09:42)
[2021-08-20] MEDS ORDERED: LASIX IVP ONE (10:02)
[2021-08-20 12:26] LABS: BILIRUBIN,URINE NEGATIVE (NEGATIVE); BLOOD/HEMOGLOBIN,URINE 1+ (NEGATIVE); GLUCOSE, URINE 1+ (NEGATIVE); KETONES,URINE NEGATIVE (NEGATIVE); LEUKOCYTE ESTERASE ,URINE NEGATIVE (NEGATIVE); NITRITES,URINE NEGATIVE (NEGATIVE); PROTEIN,URINE NEGATIVE (NEGATIVE); UROBILINOGEN,URINE NORMAL (NORMAL)
[2021-08-20 12:51] LABS: APPEARANCE,URINE CLEAR (CLEAR); COLOR,URINE STRAW (YELLOW)
[2021-08-20 12:52] LABS: BACTERIA,URINE NEGATIVE /HPF (NEGATIVE); SQUAMOUS EPITHELIAL CELL,UR NEGATIVE /HPF (NEGATIVE)
[2021-08-20 12:57] LABS: ABG BASE EXCESS 11.7 mmol/L (-2.0-2.0)
[2021-08-20 12:58] LABS: ABG ALLEN TEST POS
[2021-08-20 15:41] LABS: ABG BASE EXCESS 10.6 mmol/L (-2.0-2.0)
[2021-08-20 15:43] LABS: ABG ALLEN TEST POS
[2021-08-20] MEDS ORDERED: HEPARIN SODIUM IN D5W 25,000 UNITS/500 ML BAG IV PRN (18:36)
[2021-08-20] MEDS ORDERED: HEPARIN SODIUM INJ 5000 UNITS IVP ONE ×2 (19:14)
[2021-08-20] MEDS ORDERED: NS 100 ML IV 100 ML ONE (20:34)
[2021-08-20] MEDS ORDERED: DIPRIVAN PREMIX 1 GRAM IV 1,000 MG/100 ML VIAL ONE (20:34)
[2021-08-20] MEDS ORDERED: VERSED ONE (20:34)
[2021-08-20] MEDS ORDERED: DIPRIVAN VIAL 20 ML ONE (20:38)
[2021-08-20] MEDS ORDERED: QUELICIN (OR ANECTINE) ONE ×2 (20:39→20:40)
[2021-08-20] MEDS ORDERED: ELIQUIS PO SCH (21:00)
[2021-08-20] MEDS ORDERED: QUELICIN (OR ANECTINE) IVP ONE (21:02)
[2021-08-20] MEDS ORDERED: DIPRIVAN VIAL IVP ONE (21:02)
[2021-08-20] MEDS: DIPRIVAN PREMIX 1 GRAM IV 1,000 MG/100 ML VIAL IV PRN (21:02)
[2021-08-20] MEDS ORDERED: ZEMURON 100 MG VIAL ONE (21:32)
[2021-08-20] MEDS ORDERED: NS 500 ML IV 500 ML IV ONE (21:36)
[2021-08-20] MEDS ORDERED: ZEMURON 100 MG VIAL 500 MG in NS 500 ML IV 450 ML IV PRN (21:50)
[2021-08-20] MEDS: VERSED 100 MG in NS 100 ML IV 80 ML IV PRN (21:55)
[2021-08-20] MEDS: CELEXA PO SCH (22:22)
[2021-08-20] MEDS: SNACK - Diabetic Appropriate PO SCH (22:22)
[2021-08-20 22:39] LABS: ABG BASE EXCESS 5.6 mmol/L (-2.0-2.0)
[2021-08-20 22:40] LABS: ABG ALLEN TEST POS; ABG HCO3 31.1 mmol/L (22-26)
[2021-08-20] MEDS: NS 1000 ML 1,000 ML IV SCH (23:09)
--- NOTE | 2021-08-20 23:42 | RAD ---
HISTORYconfirm central line placementSTUDYCHEST, 1 [id number]/20/2021FINDINGSThe trachea is midline. There is a left central line present with tip in the SVC. The cardiac silhouette is mildly enlarged.. Diffuse ground-glass radiopacities bilaterally unchanged. No pneumothorax.. The bony thorax is unremarkable.IMPRESSIONLeft central line in satisfactory position.Diffuse ground-glass and alveolar opacities unchanged.Electronically signed by: Ismael Barnes (Aug 20, 2021 23:40:14)
[2021-08-20] MEDS ORDERED: DOPAMINE IV PREMIX 400 MG/250 ML 400 MG/250 ML BAG IV PRN (23:44)
[2021-08-21] MEDS ORDERED: DOPAMINE IV PREMIX 400 MG/250 ML 400 MG/250 ML BAG IV ONE (00:03)
[2021-08-21] MEDS: DIPRIVAN PREMIX 1 GRAM IV 1,000 MG/100 ML VIAL IV PRN ×6 (00:08→20:40)
[2021-08-21 04:18] LABS: ABG ALLEN TEST POS; ABG HCO3 37.2 mmol/L (22-26)
[2021-08-21 05:23] LABS: BASOPHILS # (AUTO) 0.1 X10^3/uL (0.0-0.1); BASOPHILS % (AUTO) 0.4 % (0.2-1.0); HEMATOCRIT 36.1 % (42.0-54.0); HEMOGLOBIN 12.1 g/dL (13.5-18.0); LYMPHOCYTES # (AUTO) 0.2 X10^3/uL (1.3-2.9); MEAN CORPUSCULAR HEMOGLOBIN 30.3 pg (27.0-34.0); MEAN CORPUSCULAR HGB CONC 33.7 g/dL (33.0-35.0); MEAN PLATELET VOLUME 10.5 fL (7.4-11.0); MONOCYTES # (AUTO) 0.4 x10^3/uL (0.3-0.8); NEUTROPHILS # (AUTO) 11.2 x10^3/uL (2.2-4.8); NEUTROPHILS % (AUTO) 94.6 % (42.0-75.0); PLATELET COUNT 57 X10^3/uL (150.0-450.0); RED CELL DISTRIBUTION WIDTH 13.5 % (11.6-16.5); WHITE BLOOD COUNT 11.8 X10^3/uL (3.6-10.0)
[2021-08-21 05:32] LABS: ALANINE AMINOTRANSFERASE 89 Units/L (12-78); ALBUMIN 1.7 g/dL (3.4-5.0); ALKALINE PHOSPHATASE 98 Units/L (46-116); ASPARTATE AMINO TRANSFERASE 24 Units/L (15-37); BLOOD UREA NITROGEN 34 mg/dL (7-18); CALCIUM 8.4 mg/dL (8.5-10.1); CARBON DIOXIDE 31.3 mmol/L (21-32); CHLORIDE 102 mmol/L (98-107); COR CA(FOR HYPOALB) 10.2 mg/dL (8.5-10.1); COR NA(FOR HYPERGLY) 142 mmol/L (136-145); CREATININE 1.01 mg/dL (0.70-1.30); SODIUM 137 mmol/L (136-145); TOTAL PROTEIN 5.5 g/dL (6.4-8.2); eGFR NON BLACK RACES > 60 (>60)
[2021-08-21 06:06] LABS: PLATELET MORPHOLOGY COMMENT NORMAL (NORMAL)
--- NOTE | 2021-08-21 06:15 | RAD ---
HISTORYCOVID PNEUMONIASTUDYCHEST, 1 [id number]/20/2021FINDINGSThe trachea is midline. Endotracheal tube tip above the netta. Left central line unchanged with tip in the SVC. The cardiac silhouette is mildly enlarged.. Diffuse ground-glass radiopacities bilaterally. No pneumothorax.. The bony thorax is unremarkable.IMPRESSIONStable portable chestElectronically signed by: Ismael Barnes (Aug 21, 2021 06:13:20)
[2021-08-21] MEDS: VERSED 100 MG in NS 100 ML IV 80 ML IV PRN ×2 (06:25→19:40)
[2021-08-21] MEDS: SOLU-Medrol 40 MG VIAL IVP SCH ×3 (06:38→21:45)
[2021-08-21] MEDS: ZOSYN VIAL 3.375 GRAMS 3.375 G in NS 100 ML IV + SPIKE MINIBAG* 100 ML IV SCH ×3 (06:38→21:45)
[2021-08-21] MEDS: HumuLIN R SUBCUT PRN ×4 (06:39→22:30)
--- NOTE | 2021-08-21 07:56 | DR.OPNOTE ---
OP NOTE Pre-Op Diagnosis: Covid Pneumonia and lack of IV access Post-Op Diagnosis: same Procedure Date Date Of Procedure: 08/20/21 Procedure: The patient was already intubated. He was placed in Trendelenburg position and the left neck and left chest prepped and draped in sterile fashion. The skin underlying the left clavicle infiltrated with 1% Xylocaine as was the left chest wall. 16 gauge needle use to puncture the left subclavian vein and guidewire placed without difficulty. Incision made over the guide wire at the skin level and dilator passed. Dilator removed and catheter placed over the guide wire. Guidewire removed. All ports aspirated of blood and flushed with heparinized saline . The catheter was secured to the Skin With silk sutires . Post-procedure chest x-ray showed good placement of the catheter with no pneumothorax. Type of Anesthesia: Local Findings: as above EBL: minimal Complications:: none Disposition/Condition: Pt. tolerated procedure without difficulty.
[2021-08-21 09:23] VITALS: BMI 28.8
[2021-08-21] MEDS: BROVANA IN SCH ×2 (10:05→20:51)
[2021-08-21] MEDS: PULMICORT NEB TX 0.5 MG NEB SCH ×2 (10:05→20:51)
[2021-08-21 10:10] LABS: ABG HCO3 35.9 mmol/L (22-26)
[2021-08-21 10:13] LABS: ABG HCO3 35.1 mmol/L (22-26)
[2021-08-21] MEDS: NORVASC TAB 5 MG PO SCH (11:25)
[2021-08-21] MEDS: ZITHROMAX INJ 500 MG VIAL 500 MG in D5W 250 ML IV 250 ML IV SCH (11:45)
--- NOTE | 2021-08-21 12:15 | RAD ---
HISTORYOG tube placementSTUDYKUBCOMPARISONNone .br.br stomach. The abdominal gas pattern is nonspecific and nonobstructive.IMPRESSIONOG tube in good position within the stomachElectronically signed by: NESTOR PLAZA (Aug 21, 2021 12:13:17)
[2021-08-21] MEDS: PEPCID TAB 40 MG PO SCH ×2 (12:23→21:45)
[2021-08-21] MEDS: KLONOPIN TAB 0.5 MG PO SCH ×2 (12:23→21:45)
[2021-08-21] MEDS: TRICOR TAB 160 MG PO SCH (12:24)
[2021-08-21] MEDS: VITAMIN D3 125 mcg (5,000 UNITS) PO SCH (12:24)
[2021-08-21] MEDS: VITAMIN C PO SCH (12:24)
[2021-08-21] MEDS: VITAMIN A PO SCH (12:24)
[2021-08-21] MEDS: ZINC SULFATE PO SCH (12:24)
[2021-08-21] MEDS ORDERED: NS 1/2 1000 ML IV 1,000 ML IV ONE (14:40)
[2021-08-21] MEDS: NS 1/2 1000 ML IV 1,000 ML IV SCH (14:47)
[2021-08-21 20:46] LABS: ABG BASE EXCESS 10.6 mmol/L (-2.0-2.0)
[2021-08-21 20:48] LABS: ABG ALLEN TEST POS; ABG HCO3 37.4 mmol/L (22-26)
[2021-08-21] MEDS: SNACK - Diabetic Appropriate PO SCH (21:09)
[2021-08-21] MEDS: CELEXA PO SCH (21:45)
[2021-08-21] MEDS: ELIQUIS NG SCH (21:45)
[2021-08-21] MEDS: LOPRESSOR TAB 25 MG GT SCH (21:45)
[2021-08-22] MEDS: XOPENEX 1.25 MG/3 ML NEBULE NEB SCH ×4 (00:46→17:15)
[2021-08-22] MEDS: DIPRIVAN PREMIX 1 GRAM IV 1,000 MG/100 ML VIAL IV PRN ×5 (01:50→21:15)
[2021-08-22 05:29] LABS: BASOPHILS # (AUTO) 0.1 X10^3/uL (0.0-0.1); BASOPHILS % (AUTO) 0.5 % (0.2-1.0); HEMATOCRIT 32.7 % (42.0-54.0); HEMOGLOBIN 11.2 g/dL (13.5-18.0); LYMPHOCYTES # (AUTO) 0.2 X10^3/uL (1.3-2.9); LYMPHOCYTES % (AUTO) 1.8 % (21.0-51.0); MEAN CORPUSCULAR HEMOGLOBIN 30.8 pg (27.0-34.0); MEAN CORPUSCULAR HGB CONC 34.1 g/dL (33.0-35.0); MEAN CORPUSCULAR VOLUME 90.1 fL (80.0-100.0); MEAN PLATELET VOLUME 10.3 fL (7.4-11.0); MONOCYTES # (AUTO) 0.4 x10^3/uL (0.3-0.8); MONOCYTES % (AUTO) 2.9 % (0.0-13.0); NEUTROPHILS # (AUTO) 12.7 x10^3/uL (2.2-4.8); NEUTROPHILS % (AUTO) 94.8 % (42.0-75.0); PLATELET COUNT 51 X10^3/uL (150.0-450.0); RED BLOOD COUNT 3.63 X10^6/uL (4.7-6.0); RED CELL DISTRIBUTION WIDTH 13.4 % (11.6-16.5); WHITE BLOOD COUNT 13.4 X10^3/uL (3.6-10.0)
[2021-08-22 05:33] LABS: ALANINE AMINOTRANSFERASE 72 Units/L (12-78); ALBUMIN 1.5 g/dL (3.4-5.0); ALKALINE PHOSPHATASE 84 Units/L (46-116); ASPARTATE AMINO TRANSFERASE 23 Units/L (15-37); BLOOD UREA NITROGEN 35 mg/dL (7-18); CALCIUM 8.3 mg/dL (8.5-10.1); CARBON DIOXIDE 32.3 mmol/L (21-32); CHLORIDE 105 mmol/L (98-107); COR CA(FOR HYPOALB) 10.3 mg/dL (8.5-10.1); COR NA(FOR HYPERGLY) 143 mmol/L (136-145); CREATININE 0.86 mg/dL (0.70-1.30); SODIUM 141 mmol/L (136-145); eGFR NON BLACK RACES > 60 (>60)
[2021-08-22] MEDS: SOLU-Medrol 40 MG VIAL IVP SCH ×3 (05:33→21:00)
[2021-08-22] MEDS: ZOSYN VIAL 3.375 GRAMS 3.375 G in NS 100 ML IV + SPIKE MINIBAG* 100 ML IV SCH ×3 (05:33→22:00)
[2021-08-22 05:34] LABS: ABG BASE EXCESS 12.5 mmol/L (-2.0-2.0)
[2021-08-22 05:35] LABS: ABG ALLEN TEST POS; ABG HCO3 37.4 mmol/L (22-26)
--- NOTE | 2021-08-22 05:39 | RAD ---
HISTORYCOVID PNEUMONIASTUDYCHEST, 1 [id number]/21/2021FINDINGSThe trachea is midline. Endotracheal tube tip above the netta. NG tube below the hemidiaphragm. Left central line tip in SVC. The cardiac silhouette is mildly enlarged.. Diffuse ground-glass radiopacities unchanged. No pneumothorax.. The bony thorax is unremarkable.IMPRESSIONStable portable chestElectronically signed by: Ismael Barnes (Aug 22, 2021 05:37:28)
[2021-08-22 06:11] LABS: BAND NEUTROPHILS % 1 % (0-10); PLATELET MORPHOLOGY COMMENT NORMAL (NORMAL)
[2021-08-22] MEDS ORDERED: ZITHROMAX INJ 500 MG VIAL IV ONE (08:26)
[2021-08-22] MEDS: BROVANA IN SCH ×2 (09:00→20:27)
[2021-08-22] MEDS: PULMICORT NEB TX 0.5 MG NEB SCH ×2 (09:00→20:27)
[2021-08-22] MEDS: ELIQUIS NG SCH ×2 (09:06→21:00)
[2021-08-22] MEDS: NORVASC TAB 5 MG PO SCH (09:06)
[2021-08-22] MEDS: KLONOPIN TAB 0.5 MG PO SCH ×2 (09:06→21:00)
[2021-08-22] MEDS: LOPRESSOR TAB 25 MG GT SCH ×2 (09:06→21:00)
[2021-08-22] MEDS: NS 1/2 1000 ML IV 1,000 ML IV SCH (09:07)
[2021-08-22] MEDS: TRICOR TAB 160 MG PO SCH (09:07)
[2021-08-22] MEDS: VITAMIN D3 125 mcg (5,000 UNITS) PO SCH (09:07)
[2021-08-22] MEDS: PEPCID TAB 40 MG PO SCH ×2 (09:07→21:00)
[2021-08-22] MEDS: VITAMIN A PO SCH (09:07)
[2021-08-22] MEDS: VITAMIN C PO SCH (09:07)
[2021-08-22] MEDS: ZINC SULFATE PO SCH (09:08)
[2021-08-22] MEDS: ZITHROMAX INJ 500 MG VIAL 500 MG in D5W 250 ML IV 250 ML IV SCH (09:08)
--- NOTE | 2021-08-22 09:20 | PCM.PROG ---
Progress Note - Progress Note for Day of Date of Exam: 08/20/21 - Subjective Subjective: Patient is a 71 year old white male with a history of COVID who was recently hospitalized due to COVID pneumonia and was discharged to [facility]. Patient required re-admission due to hypoxia and pneumonia. Patient's hypoxia worsened. Patient was placed on BIPAP for a trial period. Patient failed trial and requirred intubation after family discussed this decision. Patient has been intubated and sedated and placed on mechanical ventilation. Labs and meds reviewed. - Past Medical Family Social History Past Med/Fam/Surg Hx: No changes since H&P Allergies: Allergies No Known Drug Allergies Allergy (Verified 08/04/21 14:38) - Review of Systems ROS: No change since H&P - Vital Signs and I&O's Vital Signs: Temperature 97.5 F Pulse Rate [Left Brachial] 86 Pulse Rate 86 Respiratory Rate 27 Blood Pressure [Left Arm] 97/68 Blood Pressure [Right Arm] 97/59 Blood Pressure 120/58 O2 Sat by Pulse Oximetry 88 Intake and Output: Intake & Output 08/19/21 08/20/21 08/21/21 08/22/21 23:59 23:59 23:59 23:59 Intake Total 1300 / 1300 1149 / 1149 4500.00 / 4500.00 1300 / 1300 Output Total 1075 / 1075 3000 / 3000 2575 / 2575 800 / 800 Balance 225 / 225 -1851 / -1851 1925.00 / 1925.00 500 / 500 - Physical Exam Oriented: Other (intubated, sedated.) Eyes: Normal Ear: Normal Nose: Normal Throat: Dry Respiratory: Diminished, Rhonchi (mechanical ventilation) Cardiovascular: Normal. negative: Edema : Normal Auscultation: Bowel Sounds: Normal Palpation: Normal Tenderness: Normal Skin: Decreased Turgur Musculoskeletal: Back:Lumbar Psychiatric: Other (sedated) Mood Description: Calm, Anxious Speech Pattern: Artificially Ventilated - Laboratory and Diagnostics Result Diagrams: 08/22/21 04:50 08/22/21 04:50 Labs: 08/17/21 12:42 Blood Blood Culture - Preliminary 08/17/21 12:36 Blood Blood Culture - Preliminary 08/17/21 14:25 Sputum - Expectorated Sputum Sputum Culture - Final 08/17/21 14:25 Sputum - Expectorated Sputum - Final Laboratory WBC 13.4 X10^3/uL (3.6-10.0) H 08/22/21 04:50 RBC 3.63 X10^6/uL (4.7-6.0) L 08/22/21 04:50 Hgb 11.2 g/dL (13.5-18.0) L 08/22/21 04:50 Hct 32.7 % (42.0-54.0) L 08/22/21 04:50 MCV 90.1 fL (80.0-100.0) 08/22/21 04:50 MCH 30.8 pg (27.0-34.0) 08/22/21 04:50 MCHC 34.1 g/dL (33.0-35.0) 08/22/21 04:50 RDW 13.4 % (11.6-16.5) 08/22/21 04:50 Plt Count 51 X10^3/uL (150.0-450.0) L 08/22/21 04:50 Plt Count Comment Decreased (ADEQUATE) 08/22/21 04:50 MPV 10.3 fL (7.4-11.0) 08/22/21 04:50 Neut % (Auto) 94.8 % (42.0-75.0) H 08/22/21 04:50 Lymph % (Auto) 1.8 % (21.0-51.0) L 08/22/21 04:50 [place] % (Auto) 2.9 % (0.0-13.0) 08/22/21 04:50 Eos % (Auto) 0.0 % (0.9-2.9) L 08/22/21 04:50 Baso % (Auto) 0.5 % (0.2-1.0) 08/22/21 04:50 Neut # (Auto) 12.7 x10^3/uL (2.2-4.8) H 08/22/21 04:50 Lymph # (Auto) 0.2 X10^3/uL (1.3-2.9) L 08/22/21 04:50 [place] # (Auto) 0.4 x10^3/uL (0.3-0.8) 08/22/21 04:50 Eos # (Auto) 0.0 x10^3/uL (0.0-0.2) 08/22/21 04:50 Baso # (Auto) 0.1 X10^3/uL (0.0-0.1) 08/22/21 04:50 Absolute Nucleated RBC 0.0 /100WBC 08/22/21 04:50 Total Counted 100 08/22/21 04:50 Neutrophils % (Manual) 96 % (39-76) H 08/22/21 04:50 Band Neutrophils % 1 % (0-10) 08/22/21 04:50 Lymphocytes % (Manual) 2 % (13-43) L 08/22/21 04:50 Monocytes % (Manual) 1 % (4-9) L 08/22/21 04:50 Plt Morphology Comment Normal (NORMAL) 08/22/21 04:50 RBC Morphology Normal (NORMAL) 08/22/21 04:50 PT 14.1 SECONDS (11.8-14.3) 08/20/21 19:00 INR Target Range - 08/20/21 19:00 INR 1.14 (0.8-1.3) 08/20/21 19:00 APTT 66.5 SECONDS (22.9-36.5) H 08/21/21 20:56 PTT Comment - 08/21/21 20:56 D-Dimer 6.83 ug/ml (0.0-0.57) H* 08/20/21 15:40 Sample Site Lrad 08/22/21 05:29 ABG pH 7.500 (7.35-7.45) H 08/22/21 05:29 ABG pCO2 48.0 mmHg (35.0-45.0) H 08/22/21 05:29 ABG pO2 60.0 mmHg (80.0-100.0) L 08/22/21 05:29 ABG HCO3 37.4 mmol/L (22-26) H* 08/22/21 05:29 ABG O2 Saturation 93.0 % (90-100) 08/22/21 05:29 ABG Base Excess 12.5 mmol/L (-2.0-2.0) H 08/22/21 05:29 Nakul Test Pos 08/22/21 05:29 A-a Gradient 593.0 mmHg 08/22/21 05:29 FiO2 100.0 08/22/21 05:29 Blood Gas Comments Cj well-mtf 08/22/21 05:29 Sodium 141 mmol/L (136-145) 08/22/21 04:50 Corrected Sodium 143 mmol/L (136-145) 08/22/21 04:50 Potassium 4.8 mmol/L (3.5-5.1) 08/22/21 04:50 Chloride 105 mmol/L (98-107) 08/22/21 04:50 Carbon Dioxide 32.3 mmol/L (21-32) H 08/22/21 04:50 BUN 35 mg/dL (7-18) H 08/22/21 04:50 Creatinine 0.86 mg/dL (0.70-1.30) 08/22/21 04:50 Est GFR (MDRD) Af Amer > 60 (>60) 08/22/21 04:50 Est GFR (MDRD) Non-Af > 60 (>60) 08/22/21 04:50 Glucose 200 mg/dL (65-99) H 08/22/21 04:50 POC Glucose (mg/dL) 213 mg/dL (65-99) H 08/22/21 05:27 Hemoglobin A1c 7.4 % 08/17/21 10:05 Calcium 8.3 mg/dL (8.5-10.1) L 08/22/21 04:50 Corrected Calcium 10.3 mg/dL (8.5-10.1) H 08/22/21 04:50 Magnesium 2.6 mg/dL (1.7-2.9) 08/21/21 04:36 Ferritin 2697 ng/mL (26-388) H 08/20/21 15:40 Total Bilirubin 0.70 mg/dL (0.2-1.0) 08/22/21 04:50 AST 23 Units/L (15-37) 08/22/21 04:50 ALT 72 Units/L (12-78) 08/22/21 04:50 Alkaline Phosphatase 84 Units/L (46-116) 08/22/21 04:50 Creatine Kinase 87 Units/L (39-308) 08/17/21 10:05 CK-MB (CK-2) 1.9 ng/mL (0-4.0) 08/17/21 10:05 CK/CKMB % Calc 2.2 % (<4) 08/17/21 10:05 Troponin I < 0.02 ng/mL (0-1.5) 08/17/21 10:05 C-Reactive Protein 163.90 mg/L (0-3.0) H 08/20/21 15:40 B-Natriuretic Peptide 17.4 pg/mL (0-79) 08/17/21 10:05 Total Protein 5.0 g/dL (6.4-8.2) L 08/22/21 04:50 Albumin 1.5 g/dL (3.4-5.0) L 08/22/21 04:50 Globulin 3.5 g/dL (2.5-4.5) 08/22/21 04:50 Albumin/Globulin Ratio 0.4 Ratio (1.1-2.1) L 08/22/21 04:50 Specimen Type Catherized urine 08/20/21 11:56 Urine Color Straw (YELLOW) 08/20/21 11:56 Urine Appearance Clear (CLEAR) 08/20/21 11:56 Urine pH 7.0 (5.0 - 8.0) 08/20/21 11:56 Ur Specific [place] 1.010 (1.000-1.030) 08/20/21 11:56 Urine Protein Negative (NEGATIVE) 08/20/21 11:56 Urine Glucose (UA) 1+ (NEGATIVE) 08/20/21 11:56 Urine Ketones Negative (NEGATIVE) 08/20/21 11:56 Urine Occult Blood 1+ (NEGATIVE) 08/20/21 11:56 Urine Nitrite Negative (NEGATIVE) 08/20/21 11:56 Urine Bilirubin Negative (NEGATIVE) 08/20/21 11:56 Urine Urobilinogen Normal (NORMAL) 08/20/21 11:56 Ur Leukocyte Esterase Negative (NEGATIVE) 08/20/21 11:56 Urine RBC 5-10 /HPF (0-3) A 08/20/21 11:56 Urine WBC None seen /HPF (0-5) 08/20/21 11:56 Ur Squamous Epith Cells Negative /HPF (NEGATIVE) 08/20/21 11:56 Amorphous Sediment 1+ /HPF (NEGATIVE) 08/17/21 12:12 Urine Bacteria Negative /HPF (NEGATIVE) 08/20/21 11:56 Coarse Granular Casts Rare /HPF (NEGATIVE) 08/17/21 12:12 Urine Mucus Few /HPF (NEGATIVE) 08/17/21 12:12 Ur Culture Indicated? No/not indicated 08/20/21 11:56 Acetone, Semi-Quant Negative (NEGATIVE) 08/17/21 10:05 SARS-CoV-2 (PCR) Negative (NEGATIVE) 08/17/21 11:37 Influenza Type A (PCR) Negative (NEGATIVE) 08/17/21 11:37 Influenza Type B (PCR) Negative (NEGATIVE) 08/17/21 11:37 RSV (PCR) Negative (NEGATIVE) 08/17/21 11:37 SARS CoV-2 RNA Rapid ERA Positive (NEGATIVE) A 08/20/21 21:19 - Plan (1) Pneumonia due to COVID-19 virus Status: Acute Plan: IV abx and steroids, duo nebs, repeat ABG, labs, CXR in am. Mechanical ventilation. 2 hours of critical care time spent with patient (2) Acute hypoxemic respiratory failure due to COVID-19 Status: Acute Plan: as above (3) Acute respiratory distress Status: Acute Plan: HX OF COVID 19 PNEUMONIA WITH HYPOXIA. ADMIT, CARDIAC MONITORING, SUPPLEMENTAL O2. IV HYDRATION, CTA ON ADMISSION IN ER NEGATIVE FOR PE. PT/RT/OT (4) Hypoxia Status: Acute Plan: ABOVE (5) Thrombocytopenia Status: Acute
--- NOTE | 2021-08-22 09:25 | PCM.PROG ---
Progress Note - Progress Note for Day of Date of Exam: 08/21/21 - Subjective Subjective: Patient is a 71 year old white male with a history of COVID who was recently hospitalized due to COVID pneumonia and was discharged to [facility]. Patient required re-admission due to hypoxia and pneumonia. Patient has been intubated for mechanical ventilation. No significant change in condition. Platelet count has dropped; discontinue heparin drip. Start Eliquis 5mg BID. Labs and meds reviewed. - Past Medical Family Social History Past Med/Fam/Surg Hx: No changes since H&P Allergies: Allergies No Known Drug Allergies Allergy (Verified 08/04/21 14:38) - Review of Systems ROS: No change since H&P - Vital Signs and I&O's Vital Signs: Temperature 97.5 F Pulse Rate [Left Brachial] 86 Pulse Rate 90 Respiratory Rate 60 Blood Pressure [Left Arm] 97/68 Blood Pressure [Right Arm] 97/59 Blood Pressure 135/62 O2 Sat by Pulse Oximetry 89 Intake and Output: Intake & Output 08/19/21 08/20/21 08/21/21 08/22/21 23:59 23:59 23:59 23:59 Intake Total 1300 / 1300 1149 / 1149 4500.00 / 4500.00 1300 / 1300 Output Total 1075 / 1075 3000 / 3000 2575 / 2575 800 / 800 Balance 225 / 225 -1851 / -1851 1925.00 / 1925.00 500 / 500 - Physical Exam Oriented: Other (intubated, sedated.) Eyes: Normal Ear: Normal Nose: Normal Throat: Dry Respiratory: Diminished, Rhonchi (mechanical ventilation) Cardiovascular: Normal. negative: Edema : Normal Auscultation: Bowel Sounds: Normal Tenderness: Normal Skin: Decreased Turgur Musculoskeletal: Back:Lumbar Psychiatric: Other (sedated) Mood Description: Calm, Anxious Affect: Anxious Speech Pattern: Artificially Ventilated - Laboratory and Diagnostics Result Diagrams: 08/22/21 04:50 08/22/21 04:50 Labs: 08/17/21 12:42 Blood Blood Culture - Preliminary 08/17/21 12:36 Blood Blood Culture - Preliminary 08/17/21 14:25 Sputum - Expectorated Sputum Sputum Culture - Final 08/17/21 14:25 Sputum - Expectorated Sputum - Final Laboratory WBC 13.4 X10^3/uL (3.6-10.0) H 08/22/21 04:50 RBC 3.63 X10^6/uL (4.7-6.0) L 08/22/21 04:50 Hgb 11.2 g/dL (13.5-18.0) L 08/22/21 04:50 Hct 32.7 % (42.0-54.0) L 08/22/21 04:50 MCV 90.1 fL (80.0-100.0) 08/22/21 04:50 MCH 30.8 pg (27.0-34.0) 08/22/21 04:50 MCHC 34.1 g/dL (33.0-35.0) 08/22/21 04:50 RDW 13.4 % (11.6-16.5) 08/22/21 04:50 Plt Count 51 X10^3/uL (150.0-450.0) L 08/22/21 04:50 Plt Count Comment Decreased (ADEQUATE) 08/22/21 04:50 MPV 10.3 fL (7.4-11.0) 08/22/21 04:50 Neut % (Auto) 94.8 % (42.0-75.0) H 08/22/21 04:50 Lymph % (Auto) 1.8 % (21.0-51.0) L 08/22/21 04:50 [place] % (Auto) 2.9 % (0.0-13.0) 08/22/21 04:50 Eos % (Auto) 0.0 % (0.9-2.9) L 08/22/21 04:50 Baso % (Auto) 0.5 % (0.2-1.0) 08/22/21 04:50 Neut # (Auto) 12.7 x10^3/uL (2.2-4.8) H 08/22/21 04:50 Lymph # (Auto) 0.2 X10^3/uL (1.3-2.9) L 08/22/21 04:50 [place] # (Auto) 0.4 x10^3/uL (0.3-0.8) 08/22/21 04:50 Eos # (Auto) 0.0 x10^3/uL (0.0-0.2) 08/22/21 04:50 Baso # (Auto) 0.1 X10^3/uL (0.0-0.1) 08/22/21 04:50 Absolute Nucleated RBC 0.0 /100WBC 08/22/21 04:50 Total Counted 100 08/22/21 04:50 Neutrophils % (Manual) 96 % (39-76) H 08/22/21 04:50 Band Neutrophils % 1 % (0-10) 08/22/21 04:50 Lymphocytes % (Manual) 2 % (13-43) L 08/22/21 04:50 Monocytes % (Manual) 1 % (4-9) L 08/22/21 04:50 Plt Morphology Comment Normal (NORMAL) 08/22/21 04:50 RBC Morphology Normal (NORMAL) 08/22/21 04:50 PT 14.1 SECONDS (11.8-14.3) 08/20/21 19:00 INR Target Range - 08/20/21 19:00 INR 1.14 (0.8-1.3) 08/20/21 19:00 APTT 66.5 SECONDS (22.9-36.5) H 08/21/21 20:56 PTT Comment - 08/21/21 20:56 D-Dimer 6.83 ug/ml (0.0-0.57) H* 08/20/21 15:40 Sample Site Lrad 08/22/21 05:29 ABG pH 7.500 (7.35-7.45) H 08/22/21 05:29 ABG pCO2 48.0 mmHg (35.0-45.0) H 08/22/21 05:29 ABG pO2 60.0 mmHg (80.0-100.0) L 08/22/21 05:29 ABG HCO3 37.4 mmol/L (22-26) H* 08/22/21 05:29 ABG O2 Saturation 93.0 % (90-100) 08/22/21 05:29 ABG Base Excess 12.5 mmol/L (-2.0-2.0) H 08/22/21 05:29 Nakul Test Pos 08/22/21 05:29 A-a Gradient 593.0 mmHg 08/22/21 05:29 FiO2 100.0 08/22/21 05:29 Blood Gas Comments Cj well-mtf 08/22/21 05:29 Sodium 141 mmol/L (136-145) 08/22/21 04:50 Corrected Sodium 143 mmol/L (136-145) 08/22/21 04:50 Potassium 4.8 mmol/L (3.5-5.1) 08/22/21 04:50 Chloride 105 mmol/L (98-107) 08/22/21 04:50 Carbon Dioxide 32.3 mmol/L (21-32) H 08/22/21 04:50 BUN 35 mg/dL (7-18) H 08/22/21 04:50 Creatinine 0.86 mg/dL (0.70-1.30) 08/22/21 04:50 Est GFR (MDRD) Af Amer > 60 (>60) 08/22/21 04:50 Est GFR (MDRD) Non-Af > 60 (>60) 08/22/21 04:50 Glucose 200 mg/dL (65-99) H 08/22/21 04:50 POC Glucose (mg/dL) 213 mg/dL (65-99) H 08/22/21 05:27 Hemoglobin A1c 7.4 % 08/17/21 10:05 Calcium 8.3 mg/dL (8.5-10.1) L 08/22/21 04:50 Corrected Calcium 10.3 mg/dL (8.5-10.1) H 08/22/21 04:50 Magnesium 2.6 mg/dL (1.7-2.9) 08/21/21 04:36 Ferritin 2697 ng/mL (26-388) H 08/20/21 15:40 Total Bilirubin 0.70 mg/dL (0.2-1.0) 08/22/21 04:50 AST 23 Units/L (15-37) 08/22/21 04:50 ALT 72 Units/L (12-78) 08/22/21 04:50 Alkaline Phosphatase 84 Units/L (46-116) 08/22/21 04:50 Creatine Kinase 87 Units/L (39-308) 08/17/21 10:05 CK-MB (CK-2) 1.9 ng/mL (0-4.0) 08/17/21 10:05 CK/CKMB % Calc 2.2 % (<4) 08/17/21 10:05 Troponin I < 0.02 ng/mL (0-1.5) 08/17/21 10:05 C-Reactive Protein 163.90 mg/L (0-3.0) H 08/20/21 15:40 B-Natriuretic Peptide 17.4 pg/mL (0-79) 08/17/21 10:05 Total Protein 5.0 g/dL (6.4-8.2) L 08/22/21 04:50 Albumin 1.5 g/dL (3.4-5.0) L 08/22/21 04:50 Globulin 3.5 g/dL (2.5-4.5) 08/22/21 04:50 Albumin/Globulin Ratio 0.4 Ratio (1.1-2.1) L 08/22/21 04:50 Specimen Type Catherized urine 08/20/21 11:56 Urine Color Straw (YELLOW) 08/20/21 11:56 Urine Appearance Clear (CLEAR) 08/20/21 11:56 Urine pH 7.0 (5.0 - 8.0) 08/20/21 11:56 Ur Specific [place] 1.010 (1.000-1.030) 08/20/21 11:56 Urine Protein Negative (NEGATIVE) 08/20/21 11:56 Urine Glucose (UA) 1+ (NEGATIVE) 08/20/21 11:56 Urine Ketones Negative (NEGATIVE) 08/20/21 11:56 Urine Occult Blood 1+ (NEGATIVE) 08/20/21 11:56 Urine Nitrite Negative (NEGATIVE) 08/20/21 11:56 Urine Bilirubin Negative (NEGATIVE) 08/20/21 11:56 Urine Urobilinogen Normal (NORMAL) 08/20/21 11:56 Ur Leukocyte Esterase Negative (NEGATIVE) 08/20/21 11:56 Urine RBC 5-10 /HPF (0-3) A 08/20/21 11:56 Urine WBC None seen /HPF (0-5) 08/20/21 11:56 Ur Squamous Epith Cells Negative /HPF (NEGATIVE) 08/20/21 11:56 Amorphous Sediment 1+ /HPF (NEGATIVE) 08/17/21 12:12 Urine Bacteria Negative /HPF (NEGATIVE) 08/20/21 11:56 Coarse Granular Casts Rare /HPF (NEGATIVE) 08/17/21 12:12 Urine Mucus Few /HPF (NEGATIVE) 08/17/21 12:12 Ur Culture Indicated? No/not indicated 08/20/21 11:56 Acetone, Semi-Quant Negative (NEGATIVE) 08/17/21 10:05 SARS-CoV-2 (PCR) Negative (NEGATIVE) 08/17/21 11:37 Influenza Type A (PCR) Negative (NEGATIVE) 08/17/21 11:37 Influenza Type B (PCR) Negative (NEGATIVE) 08/17/21 11:37 RSV (PCR) Negative (NEGATIVE) 08/17/21 11:37 SARS CoV-2 RNA Rapid ERA Positive (NEGATIVE) A 08/20/21 21:19 - Plan (1) Pneumonia due to COVID-19 virus Status: Acute Plan: IV abx and steroids, duo nebs, repeat ABG, labs, CXR in am. Mechanical ventilation. 2 hours of critical care time spent with patient (2) Acute hypoxemic respiratory failure due to COVID-19 Status: Acute Plan: as above (3) Acute respiratory distress Status: Acute Plan: HX OF COVID 19 PNEUMONIA WITH HYPOXIA. ADMIT, CARDIAC MONITORING, SUPPLEMENTAL O2. IV HYDRATION, CTA ON ADMISSION IN ER NEGATIVE FOR PE. PT/RT/OT (4) Hypoxia Status: Acute Plan: ABOVE (5) Thrombocytopenia Status: Acute Plan: d/c heparin drip. start eliquis 5mg po bid
[2021-08-22] MEDS: VERSED 100 MG in NS 100 ML IV 80 ML IV PRN (09:58)
[2021-08-22] MEDS: HumuLIN R SUBCUT PRN ×5 (11:41→22:25)
[2021-08-22] MEDS: CELEXA PO SCH (21:00)
[2021-08-22] MEDS: SNACK - Diabetic Appropriate PO SCH (22:07)
[2021-08-23] MEDS: DIPRIVAN PREMIX 1 GRAM IV 1,000 MG/100 ML VIAL IV PRN ×6 (00:15→20:20)
[2021-08-23] MEDS: XOPENEX 1.25 MG/3 ML NEBULE NEB SCH ×4 (00:56→17:00)
[2021-08-23] MEDS: VERSED 100 MG in NS 100 ML IV 80 ML IV PRN ×2 (03:15→19:20)
[2021-08-23 05:42] LABS: ABG ALLEN TEST POS; ABG HCO3 38.5 mmol/L (22-26)
[2021-08-23 05:57] LABS: BASOPHILS % (AUTO) 0.1 % (0.2-1.0); HEMATOCRIT 33.5 % (42.0-54.0); HEMOGLOBIN 11.5 g/dL (13.5-18.0); LYMPHOCYTES # (AUTO) 0.4 X10^3/uL (1.3-2.9); LYMPHOCYTES % (AUTO) 3.4 % (21.0-51.0); MEAN CORPUSCULAR HEMOGLOBIN 30.9 pg (27.0-34.0); MEAN CORPUSCULAR HGB CONC 34.5 g/dL (33.0-35.0); MEAN CORPUSCULAR VOLUME 89.7 fL (80.0-100.0); MEAN PLATELET VOLUME 10.8 fL (7.4-11.0); MONOCYTES # (AUTO) 0.4 x10^3/uL (0.3-0.8); MONOCYTES % (AUTO) 3.3 % (0.0-13.0); NEUTROPHILS # (AUTO) 9.8 x10^3/uL (2.2-4.8); NEUTROPHILS % (AUTO) 93.2 % (42.0-75.0); PLATELET COUNT 52 X10^3/uL (150.0-450.0); RED BLOOD COUNT 3.73 X10^6/uL (4.7-6.0); RED CELL DISTRIBUTION WIDTH 13.5 % (11.6-16.5); WHITE BLOOD COUNT 10.5 X10^3/uL (3.6-10.0)
[2021-08-23] MEDS: HumuLIN R SUBCUT PRN ×4 (05:58→20:17)
[2021-08-23] MEDS: SOLU-Medrol 40 MG VIAL IVP SCH ×3 (05:59→21:15)
[2021-08-23] MEDS: ZOSYN VIAL 3.375 GRAMS 3.375 G in NS 100 ML IV + SPIKE MINIBAG* 100 ML IV SCH ×3 (06:02→21:22)
[2021-08-23 06:23] LABS: ALANINE AMINOTRANSFERASE 98 Units/L (12-78); ALBUMIN 1.6 g/dL (3.4-5.0); ALKALINE PHOSPHATASE 94 Units/L (46-116); ASPARTATE AMINO TRANSFERASE 31 Units/L (15-37); BLOOD UREA NITROGEN 32 mg/dL (7-18); CALCIUM 8.5 mg/dL (8.5-10.1); CHLORIDE 106 mmol/L (98-107); COR CA(FOR HYPOALB) 10.4 mg/dL (8.5-10.1); COR NA(FOR HYPERGLY) 146 mmol/L (136-145); CREATININE 0.69 mg/dL (0.70-1.30); SODIUM 143 mmol/L (136-145); TOTAL PROTEIN 5.2 g/dL (6.4-8.2); eGFR NON BLACK RACES > 60 (>60)
[2021-08-23 06:36] LABS: BAND NEUTROPHILS % 1 % (0-10); PLATELET MORPHOLOGY COMMENT NORMAL (NORMAL)
[2021-08-23] MEDS: BROVANA IN SCH ×2 (08:00→21:01)
[2021-08-23] MEDS: PULMICORT NEB TX 0.5 MG NEB SCH ×2 (08:00→21:01)
--- NOTE | 2021-08-23 08:00 | RAD ---
HISTORYSOB, PNEUMONIA HX: HTN, DM SX: ORTHOSTUDYCHEST, 1 VIEWCOMPARISONAP chest August 22, 2021.FINDINGSThe lungs are adequately expanded. ET tube is in place with the tip in good position 6.8 cm above the netta. An NG tube is in place with the tip in good position well below the body of the stomach. A left-sided central venous catheter is in place with the tip in the superior vena cava. There are bilateral multifocal mixed interstitial and alveolar infiltrates right greater than left with mild worsening on the right no significant change in the left compared to yesterday's exam.No pneumothorax.No pleural effusion.Cardiomediastinal silhouette is normal in size and position.Osseous structures and soft tissues are unremarkable. The patient has had a prior lower cervical ACDF.IMPRESSIONNo change in the mixed interstitial alveolar infiltrates in the left lower lung field mild worsening of the infiltrates on the right.ET tube NG tube and left-sided central venous catheter are in good position.Electronically signed by: NAWAF BAEZ (Aug 23, 2021 07:58:33)
[2021-08-23] MEDS: PEPCID TAB 40 MG PO SCH ×2 (10:00→20:15)
[2021-08-23] MEDS: KLONOPIN TAB 0.5 MG PO SCH ×2 (10:00→20:16)
[2021-08-23] MEDS: TRICOR TAB 160 MG PO SCH (10:00)
[2021-08-23] MEDS: VITAMIN C PO SCH (10:00)
[2021-08-23] MEDS: VITAMIN A PO SCH (10:00)
[2021-08-23] MEDS: LOPRESSOR TAB 25 MG GT SCH ×2 (10:00→20:15)
[2021-08-23] MEDS: VITAMIN D3 125 mcg (5,000 UNITS) PO SCH (10:00)
[2021-08-23] MEDS: ELIQUIS NG SCH ×2 (10:02→20:15)
[2021-08-23] MEDS: ZINC SULFATE PO SCH (10:04)
[2021-08-23] MEDS: NORVASC TAB 5 MG PO SCH (10:05)
[2021-08-23] MEDS ORDERED: NS 1/2 1000 ML IV 1,000 ML IV ONE (10:17)
[2021-08-23] MEDS: ZITHROMAX INJ 500 MG VIAL 500 MG in D5W 250 ML IV 250 ML IV SCH (10:55)
[2021-08-23] MEDS: NS 1/2 1000 ML IV 1,000 ML IV SCH (18:44)
[2021-08-23] MEDS ORDERED: LANOXIN or DIGITEK PO ONE (19:00)
[2021-08-23] MEDS: CELEXA PO SCH (20:16)
[2021-08-23] MEDS: SNACK - Diabetic Appropriate PO SCH (20:54)
[2021-08-24] MEDS ORDERED: LACRI-LUBE S.O.P. ONE (00:25)
[2021-08-24] MEDS: DIPRIVAN PREMIX 1 GRAM IV 1,000 MG/100 ML VIAL IV PRN ×5 (00:35→20:45)
[2021-08-24] MEDS: LACRI-LUBE S.O.P. AFFEYE SCH ×3 (00:38→21:00)
[2021-08-24] MEDS: XOPENEX 1.25 MG/3 ML NEBULE NEB SCH ×4 (01:45→16:43)
[2021-08-24 04:18] LABS: ABG BASE EXCESS 18.5 mmol/L (-2.0-2.0)
[2021-08-24 04:19] LABS: ABG ALLEN TEST POS; ABG HCO3 45.9 mmol/L (22-26)
[2021-08-24 05:32] LABS: BASOPHILS # (AUTO) 0.1 X10^3/uL (0.0-0.1); BASOPHILS % (AUTO) 0.4 % (0.2-1.0); HEMATOCRIT 35.1 % (42.0-54.0); HEMOGLOBIN 11.8 g/dL (13.5-18.0); LYMPHOCYTES # (AUTO) 0.3 X10^3/uL (1.3-2.9); LYMPHOCYTES % (AUTO) 2.1 % (21.0-51.0); MEAN CORPUSCULAR HEMOGLOBIN 30.1 pg (27.0-34.0); MEAN CORPUSCULAR HGB CONC 33.7 g/dL (33.0-35.0); MEAN CORPUSCULAR VOLUME 89.5 fL (80.0-100.0); MEAN PLATELET VOLUME 10.6 fL (7.4-11.0); MONOCYTES # (AUTO) 0.5 x10^3/uL (0.3-0.8); MONOCYTES % (AUTO) 3.5 % (0.0-13.0); PLATELET COUNT 58 X10^3/uL (150.0-450.0); RED BLOOD COUNT 3.93 X10^6/uL (4.7-6.0); RED CELL DISTRIBUTION WIDTH 13.4 % (11.6-16.5); WHITE BLOOD COUNT 14.9 X10^3/uL (3.6-10.0)
[2021-08-24] MEDS: ZOSYN VIAL 3.375 GRAMS 3.375 G in NS 100 ML IV + SPIKE MINIBAG* 100 ML IV SCH ×3 (05:45→21:04)
[2021-08-24] MEDS: SOLU-Medrol 40 MG VIAL IVP SCH ×3 (05:45→21:04)
[2021-08-24 05:51] LABS: ALANINE AMINOTRANSFERASE 97 Units/L (12-78); ALBUMIN 1.8 g/dL (3.4-5.0); ALKALINE PHOSPHATASE 94 Units/L (46-116); ASPARTATE AMINO TRANSFERASE 31 Units/L (15-37); BLOOD UREA NITROGEN 31 mg/dL (7-18); CALCIUM 8.4 mg/dL (8.5-10.1); CARBON DIOXIDE 37.9 mmol/L (21-32); CHLORIDE 104 mmol/L (98-107); COR CA(FOR HYPOALB) 10.2 mg/dL (8.5-10.1); COR NA(FOR HYPERGLY) 144 mmol/L (136-145); CREATININE 0.76 mg/dL (0.70-1.30); SODIUM 141 mmol/L (136-145); TOTAL PROTEIN 5.6 g/dL (6.4-8.2); eGFR NON BLACK RACES > 60 (>60)
[2021-08-24 06:03] LABS: PLATELET MORPHOLOGY COMMENT NORMAL (NORMAL)
[2021-08-24] MEDS: HumuLIN R SUBCUT PRN ×4 (06:10→20:57)
--- NOTE | 2021-08-24 07:55 | RAD ---
HISTORYSOB pneumoniaSTUDYAP [id number] is no definite change in appearance of heart or lungs. Support lines are stable in position. Similar extent and distribution of bilateral pulmonary infiltrates without additional consolidation, pneumothorax or pleural fluid identified.IMPRESSIONNo significant change in appearance of the bilateral pneumonia.Electronically signed by: MALLORIE CUTLER (Aug 24, 2021 07:54:11)
[2021-08-24] MEDS: PULMICORT NEB TX 0.5 MG NEB SCH ×2 (08:25→20:00)
[2021-08-24] MEDS: BROVANA IN SCH ×2 (08:25→20:00)
[2021-08-24] MEDS: KLONOPIN TAB 0.5 MG PO SCH ×2 (08:38→20:17)
[2021-08-24] MEDS: ELIQUIS NG SCH ×2 (08:38→20:17)
[2021-08-24] MEDS: PEPCID TAB 40 MG PO SCH ×2 (08:39→20:16)
[2021-08-24] MEDS: TRICOR TAB 160 MG PO SCH (08:39)
[2021-08-24] MEDS: VITAMIN C PO SCH (08:40)
[2021-08-24] MEDS: VITAMIN D3 125 mcg (5,000 UNITS) PO SCH (08:40)
[2021-08-24] MEDS: ZINC SULFATE PO SCH (08:43)
[2021-08-24] MEDS: NS 1/2 1000 ML IV 1,000 ML IV SCH (08:56)
[2021-08-24] MEDS ORDERED: NS 1/2 1000 ML IV 1,000 ML IV ONE (09:48)
[2021-08-24] MEDS: LOPRESSOR TAB 25 MG GT SCH ×2 (09:56→20:17)
[2021-08-24] MEDS: NORVASC TAB 5 MG PO SCH (09:57)
[2021-08-24] MEDS: VITAMIN A PO SCH (09:59)
[2021-08-24] MEDS: MILK OF MAGNESIA GT SCH ×4 (09:59→20:16)
[2021-08-24] MEDS: COLACE SYRUP 100 MG UDC PO SCH ×2 (09:59→20:16)
[2021-08-24] MEDS: ZITHROMAX INJ 500 MG VIAL 500 MG in D5W 250 ML IV 250 ML IV SCH (10:00)
[2021-08-24] MEDS: VERSED 100 MG in NS 100 ML IV 80 ML IV PRN (11:41)
--- NOTE | 2021-08-24 16:34 | PCM.PROG ---
Progress Note - Progress Note for Day of Date of Exam: 08/23/21 - Subjective Subjective: IS A 71 YEAR OLD PATIENT OF . HE WAS RECENTLY TREATED FOR COVID PNEUMONIA. FOLLOWING TREATMENT, HE WAS DISCHARGED TO [facility]. HE RETURNED DUE TO HYPOXIA AND PNEUMONIA. HE HAS REQUIRED INTUBATION FOR MECHANICAL VENTILATION. HIS VENT SETTINGS TODAY ARE: A/C, VENT RATE 26, TIDAL VOLUME 450, PEAK FLOW 35, PEEP 3, FI02 100. SATURATIONS THROUGHOUT THE NIGHT HAVE BEEN 88-92%. HIS VITALS THIS MORNING ARE: 96.3-68-32-87%-117/60. LABS WERE OBTAINED. ABNORMAL LAB VALUES INCLUDE THE FOLLOWING: WBC 10.5, RBC 3.73, HGB 11.5, HCT 33.5, PLT COUNT 52, D-DIMER 2.60, P OTASSIUM 5.2, CARBON DIOXIDE 36.0, BUN 32, CREATININE 0.69, GLUCOSE 240, ALT 98, CRP 67.20, BNP 157, TOTAL PROTEIN 5.2, ALBUMIN 1.6. ABG REVEALED: PH 7.430, PC02 58, P02 68, HC03 38.5, 02 SAT 94, BASE EXCESS 12.0, A-A GRADIENT 573, FI02 100. CHEST XRAY REVEALED: No change in the mixed interstitial alveolar infiltrates in the left lower lung field mild worsening of the infiltrates on the right. ET tube NG tube and left-sided central venous catheter are in good position. WE WILL CONTINUE WITH IV ANTIBIOTIC, STEROIDS, DUONEBS, ELIQUIS, AND CURRENT PLAN OF CARE. OTHERWISE, WE WILL FOLLOW UP WITH AM LABS AND CHEST XRAY AND CONTINUE TO MONITOR. TIME SPENT ON CLINICAL ASSESSMENT, REVIEWING LABS AND IMAGING, DECISION MAKING, AND DOCUMENTATION GREATER THAN 75 MINUTES. - Past Medical Family Social History Past Med/Fam/Surg Hx: No changes since H&P Allergies: Allergies No Known Drug Allergies Allergy (Verified 08/04/21 14:38) - Review of Systems ROS: No change since H&P - Vital Signs and I&O's Vital Signs: Temperature 97.7 F Pulse Rate [Left Brachial] 86 Pulse Rate 73 Respiratory Rate 28 Blood Pressure [Left Arm] 97/68 Blood Pressure [Right Arm] 97/59 Blood Pressure 128/66 O2 Sat by Pulse Oximetry 90 Intake and Output: Intake & Output 10/22/08/23/21 08/24/21 08/25/21 11:59 11:59 11:59 11:59 Intake Total 3802.00 / 3902.00 3883 / 3883 4101 / 4101 1325 / 1325 Output Total 2575 / 2575 1600 / 1600 3075 / 3075 900 / 900 Balance 1227.00 / 1327.00 2283 / 2283 1026 / 1026 425 / 425 - Physical Exam Oriented: Other (intubated, sedated.) Eyes: Normal Ear: Normal Nose: Normal Throat: Dry Respiratory: Diminished, Rhonchi (mechanical ventilation) Cardiovascular: Normal. negative: Edema : Normal Auscultation: Bowel Sounds: Normal Tenderness: Normal Skin: Decreased Turgur Musculoskeletal: Back:Lumbar Psychiatric: Other (sedated) Mood Description: Calm, Anxious Affect: Anxious Speech Pattern: Artificially Ventilated - Laboratory and Diagnostics Result Diagrams: 08/24/21 04:59 08/24/21 04:59 Labs: 08/17/21 12:42 Blood Blood Culture - Final 08/17/21 12:36 Blood Blood Culture - Final 08/17/21 14:25 Sputum - Expectorated Sputum Sputum Culture - Final 08/17/21 14:25 Sputum - Expectorated Sputum - Final Laboratory WBC 14.9 X10^3/uL (3.6-10.0) H 08/24/21 04:59 RBC 3.93 X10^6/uL (4.7-6.0) L 08/24/21 04:59 Hgb 11.8 g/dL (13.5-18.0) L 08/24/21 04:59 Hct 35.1 % (42.0-54.0) L 08/24/21 04:59 MCV 89.5 fL (80.0-100.0) 08/24/21 04:59 MCH 30.1 pg (27.0-34.0) 08/24/21 04:59 MCHC 33.7 g/dL (33.0-35.0) 08/24/21 04:59 RDW 13.4 % (11.6-16.5) 08/24/21 04:59 Plt Count 58 X10^3/uL (150.0-450.0) L 08/24/21 04:59 Plt Count Comment Decreased (ADEQUATE) 08/24/21 04:59 MPV 10.6 fL (7.4-11.0) 08/24/21 04:59 Neut % (Auto) 94.0 % (42.0-75.0) H 08/24/21 04:59 Lymph % (Auto) 2.1 % (21.0-51.0) L 08/24/21 04:59 [place] % (Auto) 3.5 % (0.0-13.0) 08/24/21 04:59 Eos % (Auto) 0.0 % (0.9-2.9) L 08/24/21 04:59 Baso % (Auto) 0.4 % (0.2-1.0) 08/24/21 04:59 Neut # (Auto) 14.0 x10^3/uL (2.2-4.8) H 08/24/21 04:59 Lymph # (Auto) 0.3 X10^3/uL (1.3-2.9) L 08/24/21 04:59 [place] # (Auto) 0.5 x10^3/uL (0.3-0.8) 08/24/21 04:59 Eos # (Auto) 0.0 x10^3/uL (0.0-0.2) 08/24/21 04:59 Baso # (Auto) 0.1 X10^3/uL (0.0-0.1) 08/24/21 04:59 Absolute Nucleated RBC 0.0 /100WBC 08/24/21 04:59 Total Counted 100 08/24/21 04:59 Neutrophils % (Manual) 93 % (39-76) H 08/24/21 04:59 Band Neutrophils % 1 % (0-10) 08/23/21 04:58 Lymphocytes % (Manual) 3 % (13-43) L 08/24/21 04:59 Monocytes % (Manual) 4 % (4-9) 08/24/21 04:59 Plt Morphology Comment Normal (NORMAL) 08/24/21 04:59 RBC Morphology Normal (NORMAL) 08/24/21 04:59 PT 14.1 SECONDS (11.8-14.3) 08/20/21 19:00 INR Target Range - 08/20/21 19:00 INR 1.14 (0.8-1.3) 08/20/21 19:00 APTT 66.5 SECONDS (22.9-36.5) H 08/21/21 20:56 PTT Comment - 08/21/21 20:56 D-Dimer 1.91 ug/ml (0.0-0.57) H* 08/24/21 04:59 Sample Site Lrad 08/24/21 04:15 ABG pH 7.450 (7.35-7.45) 08/24/21 04:15 ABG pCO2 66.0 mmHg (35.0-45.0) H* 08/24/21 04:15 ABG pO2 66.0 mmHg (80.0-100.0) L 08/24/21 04:15 ABG HCO3 45.9 mmol/L (22-26) H* 08/24/21 04:15 ABG O2 Saturation 94.0 % (90-100) 08/24/21 04:15 ABG Base Excess 18.5 mmol/L (-2.0-2.0) H 08/24/21 04:15 Nakul Test Pos 08/24/21 04:15 A-a Gradient 565.0 mmHg 08/24/21 04:15 FiO2 100.0 08/24/21 04:15 Blood Gas Comments Cj well mts 08/24/21 04:15 Sodium 141 mmol/L (136-145) 08/24/21 04:59 Corrected Sodium 144 mmol/L (136-145) 08/24/21 04:59 Potassium 5.7 mmol/L (3.5-5.1) H 08/24/21 04:59 Chloride 104 mmol/L (98-107) 08/24/21 04:59 Carbon Dioxide 37.9 mmol/L (21-32) H 08/24/21 04:59 BUN 31 mg/dL (7-18) H 08/24/21 04:59 Creatinine 0.76 mg/dL (0.70-1.30) 08/24/21 04:59 Est GFR (MDRD) Af Amer > 60 (>60) 08/24/21 04:59 Est GFR (MDRD) Non-Af > 60 (>60) 08/24/21 04:59 Glucose 206 mg/dL (65-99) H 08/24/21 04:59 POC Glucose (mg/dL) 244 mg/dL (65-99) H 08/24/21 16:20 Hemoglobin A1c 7.4 % 08/17/21 10:05 Calcium 8.4 mg/dL (8.5-10.1) L 08/24/21 04:59 Corrected Calcium 10.2 mg/dL (8.5-10.1) H 08/24/21 04:59 Magnesium 2.6 mg/dL (1.7-2.9) 08/21/21 04:36 Ferritin 2697 ng/mL (26-388) H 08/20/21 15:40 Total Bilirubin 0.70 mg/dL (0.2-1.0) 08/24/21 04:59 AST 31 Units/L (15-37) 08/24/21 04:59 ALT 97 Units/L (12-78) H 08/24/21 04:59 Alkaline Phosphatase 94 Units/L (46-116) 08/24/21 04:59 Creatine Kinase 87 Units/L (39-308) 08/17/21 10:05 CK-MB (CK-2) 1.9 ng/mL (0-4.0) 08/17/21 10:05 CK/CKMB % Calc 2.2 % (<4) 08/17/21 10:05 Troponin I < 0.02 ng/mL (0-1.5) 08/17/21 10:05 C-Reactive Protein 45.20 mg/L (0-3.0) H 08/24/21 04:59 B-Natriuretic Peptide 85.6 pg/mL (0-79) H 08/24/21 04:59 Total Protein 5.6 g/dL (6.4-8.2) L 08/24/21 04:59 Albumin 1.8 g/dL (3.4-5.0) L 08/24/21 04:59 Globulin 3.8 g/dL (2.5-4.5) 08/24/21 04:59 Albumin/Globulin Ratio 0.5 Ratio (1.1-2.1) L 08/24/21 04:59 Specimen Type Catherized urine 08/20/21 11:56 Urine Color Straw (YELLOW) 08/20/21 11:56 Urine Appearance Clear (CLEAR) 08/20/21 11:56 Urine pH 7.0 (5.0 - 8.0) 08/20/21 11:56 Ur Specific [place] 1.010 (1.000-1.030) 08/20/21 11:56 Urine Protein Negative (NEGATIVE) 08/20/21 11:56 Urine Glucose (UA) 1+ (NEGATIVE) 08/20/21 11:56 Urine Ketones Negative (NEGATIVE) 08/20/21 11:56 Urine Occult Blood 1+ (NEGATIVE) 08/20/21 11:56 Urine Nitrite Negative (NEGATIVE) 08/20/21 11:56 Urine Bilirubin Negative (NEGATIVE) 08/20/21 11:56 Urine Urobilinogen Normal (NORMAL) 08/20/21 11:56 Ur Leukocyte Esterase Negative (NEGATIVE) 08/20/21 11:56 Urine RBC 5-10 /HPF (0-3) A 08/20/21 11:56 Urine WBC None seen /HPF (0-5) 08/20/21 11:56 Ur Squamous Epith Cells Negative /HPF (NEGATIVE) 08/20/21 11:56 Amorphous Sediment 1+ /HPF (NEGATIVE) 08/17/21 12:12 Urine Bacteria Negative /HPF (NEGATIVE) 08/20/21 11:56 Coarse Granular Casts Rare /HPF (NEGATIVE) 08/17/21 12:12 Urine Mucus Few /HPF (NEGATIVE) 08/17/21 12:12 Ur Culture Indicated? No/not indicated 08/20/21 11:56 Acetone, Semi-Quant Negative (NEGATIVE) 08/17/21 10:05 SARS-CoV-2 (PCR) Negative (NEGATIVE) 08/17/21 11:37 Influenza Type A (PCR) Negative (NEGATIVE) 08/17/21 11:37 Influenza Type B (PCR) Negative (NEGATIVE) 08/17/21 11:37 RSV (PCR) Negative (NEGATIVE) 08/17/21 11:37 SARS CoV-2 RNA Rapid ERA Positive (NEGATIVE) A 08/20/21 21:19 - Plan (1) Pneumonia due to COVID-19 virus Status: Acute Plan: IV abx and steroids, duo nebs, repeat ABG, labs, CXR in am. Mechanical ventilation (2) Acute hypoxemic respiratory failure due to COVID-19 Status: Acute Plan: as above (3) Thrombocytopenia Status: Acute
--- NOTE | 2021-08-24 16:40 | PCM.PROG ---
Progress Note - Progress Note for Day of Date of Exam: 08/24/21 - Subjective Subjective: IS A 71 YEAR OLD PATIENT OF . HE WAS RECENTLY TREATED FOR COVID PNEUMONIA. FOLLOWING TREATMENT, HE WAS DISCHARGED TO [facility]. HE RETURNED DUE TO HYPOXIA AND PNEUMONIA. HE HAS REQUIRED INTUBATION FOR MECHANICAL VENTILATION. HIS VENT SETTINGS TODAY ARE: A/C, VENT RATE 26, TIDAL VOLUME 450, PEAK FLOW 40, PEEP 6, FI02 100. SATURATIONS THROUGHOUT THE NIGHT HAVE BEEN 89-92%. HIS VITALS THIS MORNING ARE: 98.2-76-24-91%-115/59. LABS WERE OBTAINED. ABNORMAL LAB VALUES INCLUDE THE FOLLOWING: WBC 14.9, RBC 3.93, HCT 11.8, HCT 35.1, PLT COUNT 58, D-DIMER 1.91, P OTASSIUM 5.7, CARBON DIOXIDE 37.9, BUN 31, GLUCOSE 206, CALCIUM 8.4, ALT 97, CRP 45.20, BNO 85.6, TOTAL PROTEIN 5.6, ALBUMIN 1.8. ABG REVEALED: PH 7.450, PC02 66, P02 66, HC03 45.9, 02 SAT 94, BASE EXCESS 18.5, A-A GRADIENT 565, FI02 100. CHEST XRAY REVEALED: No significant change in appearance of the bilateral pneumonia.WE WILL CONTINUE WITH IV ANTIBIOTIC, STEROIDS, DUONEBS, ELIQUIS, AND CURRENT PLAN OF CARE. WE WILL WEAN OXYGEN HE TOLERATES IT. OTHERWISE, WE WILL FOLLOW UP WITH AM LABS AND CHEST XRAY AND CONTINUE TO MONITOR. TIME SPENT ON CLINICAL ASSESSMENT, REVIEWING LABS AND IMAGING, DECISION MAKING, AND DOCUMENTATION GREATER THAN 75 MINUTES. - Past Medical Family Social History Past Med/Fam/Surg Hx: No changes since H&P Allergies: Allergies No Known Drug Allergies Allergy (Verified 08/04/21 14:38) - Review of Systems ROS: No change since H&P - Vital Signs and I&O's Vital Signs: Temperature 97.7 F Pulse Rate [Left Brachial] 86 Pulse Rate 73 Respiratory Rate 28 Blood Pressure [Left Arm] 97/68 Blood Pressure [Right Arm] 97/59 Blood Pressure 128/66 O2 Sat by Pulse Oximetry 90 Intake and Output: Intake & Output 08/22/21 08/23/21 08/24/21 08/25/21 11:59 11:59 11:59 11:59 Intake Total 3802.00 / 3902.00 3883 / 3883 4101 / 4101 1325 / 1325 Output Total 2575 / 2575 1600 / 1600 3075 / 3075 1150 / 1150 Balance 1227.00 / 1327.00 2283 / 2283 1026 / 1026 175 / 175 - Physical Exam Oriented: Other (intubated, sedated.) Eyes: Normal Ear: Normal Nose: Normal Throat: Dry Respiratory: Diminished, Rhonchi (mechanical ventilation) Cardiovascular: Normal. negative: Edema : Normal Auscultation: Bowel Sounds: Normal Tenderness: Normal Skin: Decreased Turgur Musculoskeletal: Back:Lumbar Psychiatric: Other (sedated) Mood Description: Calm, Anxious Affect: Anxious Speech Pattern: Artificially Ventilated - Laboratory and Diagnostics Result Diagrams: 08/24/21 04:59 08/24/21 04:59 Labs: 08/17/21 12:42 Blood Blood Culture - Final 08/17/21 12:36 Blood Blood Culture - Final 08/17/21 14:25 Sputum - Expectorated Sputum Sputum Culture - Final 08/17/21 14:25 Sputum - Expectorated Sputum - Final Laboratory WBC 14.9 X10^3/uL (3.6-10.0) H 08/24/21 04:59 RBC 3.93 X10^6/uL (4.7-6.0) L 08/24/21 04:59 Hgb 11.8 g/dL (13.5-18.0) L 08/24/21 04:59 Hct 35.1 % (42.0-54.0) L 08/24/21 04:59 MCV 89.5 fL (80.0-100.0) 08/24/21 04:59 MCH 30.1 pg (27.0-34.0) 08/24/21 04:59 MCHC 33.7 g/dL (33.0-35.0) 08/24/21 04:59 RDW 13.4 % (11.6-16.5) 08/24/21 04:59 Plt Count 58 X10^3/uL (150.0-450.0) L 08/24/21 04:59 Plt Count Comment Decreased (ADEQUATE) 08/24/21 04:59 MPV 10.6 fL (7.4-11.0) 08/24/21 04:59 Neut % (Auto) 94.0 % (42.0-75.0) H 08/24/21 04:59 Lymph % (Auto) 2.1 % (21.0-51.0) L 08/24/21 04:59 [place] % (Auto) 3.5 % (0.0-13.0) 08/24/21 04:59 Eos % (Auto) 0.0 % (0.9-2.9) L 08/24/21 04:59 Baso % (Auto) 0.4 % (0.2-1.0) 08/24/21 04:59 Neut # (Auto) 14.0 x10^3/uL (2.2-4.8) H 08/24/21 04:59 Lymph # (Auto) 0.3 X10^3/uL (1.3-2.9) L 08/24/21 04:59 [place] # (Auto) 0.5 x10^3/uL (0.3-0.8) 08/24/21 04:59 Eos # (Auto) 0.0 x10^3/uL (0.0-0.2) 08/24/21 04:59 Baso # (Auto) 0.1 X10^3/uL (0.0-0.1) 08/24/21 04:59 Absolute Nucleated RBC 0.0 /100WBC 08/24/21 04:59 Total Counted 100 08/24/21 04:59 Neutrophils % (Manual) 93 % (39-76) H 08/24/21 04:59 Band Neutrophils % 1 % (0-10) 08/23/21 04:58 Lymphocytes % (Manual) 3 % (13-43) L 08/24/21 04:59 Monocytes % (Manual) 4 % (4-9) 08/24/21 04:59 Plt Morphology Comment Normal (NORMAL) 08/24/21 04:59 RBC Morphology Normal (NORMAL) 08/24/21 04:59 PT 14.1 SECONDS (11.8-14.3) 08/20/21 19:00 INR Target Range - 08/20/21 19:00 INR 1.14 (0.8-1.3) 08/20/21 19:00 APTT 66.5 SECONDS (22.9-36.5) H 08/21/21 20:56 PTT Comment - 08/21/21 20:56 D-Dimer 1.91 ug/ml (0.0-0.57) H* 08/24/21 04:59 Sample Site Lrad 08/24/21 04:15 ABG pH 7.450 (7.35-7.45) 08/24/21 04:15 ABG pCO2 66.0 mmHg (35.0-45.0) H* 08/24/21 04:15 ABG pO2 66.0 mmHg (80.0-100.0) L 08/24/21 04:15 ABG HCO3 45.9 mmol/L (22-26) H* 08/24/21 04:15 ABG O2 Saturation 94.0 % (90-100) 08/24/21 04:15 ABG Base Excess 18.5 mmol/L (-2.0-2.0) H 08/24/21 04:15 Nakul Test Pos 08/24/21 04:15 A-a Gradient 565.0 mmHg 08/24/21 04:15 FiO2 100.0 08/24/21 04:15 Blood Gas Comments Cj well mts 08/24/21 04:15 Sodium 141 mmol/L (136-145) 08/24/21 04:59 Corrected Sodium 144 mmol/L (136-145) 08/24/21 04:59 Potassium 5.7 mmol/L (3.5-5.1) H 08/24/21 04:59 Chloride 104 mmol/L (98-107) 08/24/21 04:59 Carbon Dioxide 37.9 mmol/L (21-32) H 08/24/21 04:59 BUN 31 mg/dL (7-18) H 08/24/21 04:59 Creatinine 0.76 mg/dL (0.70-1.30) 08/24/21 04:59 Est GFR (MDRD) Af Amer > 60 (>60) 08/24/21 04:59 Est GFR (MDRD) Non-Af > 60 (>60) 08/24/21 04:59 Glucose 206 mg/dL (65-99) H 08/24/21 04:59 POC Glucose (mg/dL) 244 mg/dL (65-99) H 08/24/21 16:20 Hemoglobin A1c 7.4 % 08/17/21 10:05 Calcium 8.4 mg/dL (8.5-10.1) L 08/24/21 04:59 Corrected Calcium 10.2 mg/dL (8.5-10.1) H 08/24/21 04:59 Magnesium 2.6 mg/dL (1.7-2.9) 08/21/21 04:36 Ferritin 2697 ng/mL (26-388) H 08/20/21 15:40 Total Bilirubin 0.70 mg/dL (0.2-1.0) 08/24/21 04:59 AST 31 Units/L (15-37) 08/24/21 04:59 ALT 97 Units/L (12-78) H 08/24/21 04:59 Alkaline Phosphatase 94 Units/L (46-116) 08/24/21 04:59 Creatine Kinase 87 Units/L (39-308) 08/17/21 10:05 CK-MB (CK-2) 1.9 ng/mL (0-4.0) 08/17/21 10:05 CK/CKMB % Calc 2.2 % (<4) 08/17/21 10:05 Troponin I < 0.02 ng/mL (0-1.5) 08/17/21 10:05 C-Reactive Protein 45.20 mg/L (0-3.0) H 08/24/21 04:59 B-Natriuretic Peptide 85.6 pg/mL (0-79) H 08/24/21 04:59 Total Protein 5.6 g/dL (6.4-8.2) L 08/24/21 04:59 Albumin 1.8 g/dL (3.4-5.0) L 08/24/21 04:59 Globulin 3.8 g/dL (2.5-4.5) 08/24/21 04:59 Albumin/Globulin Ratio 0.5 Ratio (1.1-2.1) L 08/24/21 04:59 Specimen Type Catherized urine 08/20/21 11:56 Urine Color Straw (YELLOW) 08/20/21 11:56 Urine Appearance Clear (CLEAR) 08/20/21 11:56 Urine pH 7.0 (5.0 - 8.0) 08/20/21 11:56 Ur Specific [place] 1.010 (1.000-1.030) 08/20/21 11:56 Urine Protein Negative (NEGATIVE) 08/20/21 11:56 Urine Glucose (UA) 1+ (NEGATIVE) 08/20/21 11:56 Urine Ketones Negative (NEGATIVE) 08/20/21 11:56 Urine Occult Blood 1+ (NEGATIVE) 08/20/21 11:56 Urine Nitrite Negative (NEGATIVE) 08/20/21 11:56 Urine Bilirubin Negative (NEGATIVE) 08/20/21 11:56 Urine Urobilinogen Normal (NORMAL) 08/20/21 11:56 Ur Leukocyte Esterase Negative (NEGATIVE) 08/20/21 11:56 Urine RBC 5-10 /HPF (0-3) A 08/20/21 11:56 Urine WBC None seen /HPF (0-5) 08/20/21 11:56 Ur Squamous Epith Cells Negative /HPF (NEGATIVE) 08/20/21 11:56 Amorphous Sediment 1+ /HPF (NEGATIVE) 08/17/21 12:12 Urine Bacteria Negative /HPF (NEGATIVE) 08/20/21 11:56 Coarse Granular Casts Rare /HPF (NEGATIVE) 08/17/21 12:12 Urine Mucus Few /HPF (NEGATIVE) 08/17/21 12:12 Ur Culture Indicated? No/not indicated 08/20/21 11:56 Acetone, Semi-Quant Negative (NEGATIVE) 08/17/21 10:05 SARS-CoV-2 (PCR) Negative (NEGATIVE) 08/17/21 11:37 Influenza Type A (PCR) Negative (NEGATIVE) 08/17/21 11:37 Influenza Type B (PCR) Negative (NEGATIVE) 08/17/21 11:37 RSV (PCR) Negative (NEGATIVE) 08/17/21 11:37 SARS CoV-2 RNA Rapid ERA Positive (NEGATIVE) A 08/20/21 21:19 - Plan (1) Pneumonia due to COVID-19 virus Status: Acute Plan: IV abx and steroids, duo nebs, repeat ABG, labs, CXR in am. Mechanical ventilation (2) Acute hypoxemic respiratory failure due to COVID-19 Status: Acute Plan: as above (3) Thrombocytopenia Status: Acute Plan: d/c heparin drip. start eliquis 5mg po bid
[2021-08-24] MEDS: CELEXA PO SCH (20:17)
[2021-08-25] MEDS: XOPENEX 1.25 MG/3 ML NEBULE NEB SCH ×4 (00:05→16:31)
[2021-08-25] MEDS ORDERED: SALINE 3% 15 ML NEB TX ONE (00:06)
[2021-08-25] MEDS: DIPRIVAN PREMIX 1 GRAM IV 1,000 MG/100 ML VIAL IV PRN ×5 (01:44→20:19)
[2021-08-25 04:18] LABS: ABG BASE EXCESS 19.1 mmol/L (-2.0-2.0)
[2021-08-25 04:19] LABS: ABG ALLEN TEST POS; ABG HCO3 47.4 mmol/L (22-26)
[2021-08-25 05:14] LABS: ALANINE AMINOTRANSFERASE 79 Units/L (12-78); ALBUMIN 1.8 g/dL (3.4-5.0); ALKALINE PHOSPHATASE 96 Units/L (46-116); ASPARTATE AMINO TRANSFERASE 29 Units/L (15-37); BLOOD UREA NITROGEN 31 mg/dL (7-18); CALCIUM 8.6 mg/dL (8.5-10.1); CARBON DIOXIDE 38.6 mmol/L (21-32); CHLORIDE 98 mmol/L (98-107); COR CA(FOR HYPOALB) 10.4 mg/dL (8.5-10.1); COR NA(FOR HYPERGLY) 135 mmol/L (136-145); CREATININE 0.66 mg/dL (0.70-1.30); SODIUM 132 mmol/L (136-145); TOTAL PROTEIN 5.7 g/dL (6.4-8.2); eGFR NON BLACK RACES > 60 (>60)
[2021-08-25 05:27] LABS: BASOPHILS # (AUTO) 0.1 X10^3/uL (0.0-0.1); BASOPHILS % (AUTO) 0.8 % (0.2-1.0); EOSINOPHILS % (AUTO) 0.1 % (0.9-2.9); HEMATOCRIT 36.6 % (42.0-54.0); HEMOGLOBIN 12.5 g/dL (13.5-18.0); LYMPHOCYTES # (AUTO) 0.2 X10^3/uL (1.3-2.9); MEAN CORPUSCULAR HEMOGLOBIN 30.7 pg (27.0-34.0); MEAN CORPUSCULAR VOLUME 90.2 fL (80.0-100.0); MEAN PLATELET VOLUME 10.8 fL (7.4-11.0); MONOCYTES # (AUTO) 0.2 x10^3/uL (0.3-0.8); MONOCYTES % (AUTO) 1.4 % (0.0-13.0); NEUTROPHILS # (AUTO) 14.8 x10^3/uL (2.2-4.8); NEUTROPHILS % (AUTO) 96.7 % (42.0-75.0); PLATELET COUNT 62 X10^3/uL (150.0-450.0); RED BLOOD COUNT 4.06 X10^6/uL (4.7-6.0); RED CELL DISTRIBUTION WIDTH 13.3 % (11.6-16.5); WHITE BLOOD COUNT 15.4 X10^3/uL (3.6-10.0)
[2021-08-25] MEDS: SOLU-Medrol 40 MG VIAL IVP SCH ×3 (05:27→21:03)
[2021-08-25] MEDS: ZOSYN VIAL 3.375 GRAMS 3.375 G in NS 100 ML IV + SPIKE MINIBAG* 100 ML IV SCH ×3 (05:27→21:04)
[2021-08-25] MEDS: HumuLIN R SUBCUT PRN ×3 (05:51→16:40)
[2021-08-25 06:25] LABS: BAND NEUTROPHILS % 3 % (0-10); PLATELET MORPHOLOGY COMMENT NORMAL (NORMAL)
--- NOTE | 2021-08-25 07:10 | RAD ---
HISTORYSOBSTUDYCHEST, 1 [id number]/24/2021.TECHNIQUEAP view of the chestFINDINGSET tube in good position. Left subclavian central line is in good position. NG tube courses below the visualized field of view. Cardiac and mediastinal contours are within normal limits. No significant change in bilateral airspace and interstitial opacities. No definite pleural effusion or pneumothorax.IMPRESSIONNo significant change.Electronically signed by: Williams Orellana (Aug 25, 2021 07:08:44)
[2021-08-25] MEDS: KLONOPIN TAB 0.5 MG PO SCH ×2 (08:32→20:17)
[2021-08-25] MEDS: ELIQUIS NG SCH ×2 (08:32→20:17)
[2021-08-25] MEDS: COLACE SYRUP 100 MG UDC PO SCH ×2 (08:32→20:17)
[2021-08-25] MEDS: LOPRESSOR TAB 25 MG GT SCH ×2 (08:33→20:17)
[2021-08-25] MEDS: NS 1/2 1000 ML IV 1,000 ML IV SCH (08:33)
[2021-08-25] MEDS: NORVASC TAB 5 MG PO SCH (08:33)
[2021-08-25] MEDS: LACRI-LUBE S.O.P. AFFEYE SCH ×2 (08:33→20:17)
[2021-08-25] MEDS: MILK OF MAGNESIA GT SCH ×4 (08:33→20:18)
[2021-08-25] MEDS: PEPCID TAB 40 MG PO SCH ×2 (08:34→20:16)
[2021-08-25] MEDS: VITAMIN C PO SCH (08:34)
[2021-08-25] MEDS: TRICOR TAB 160 MG PO SCH (08:34)
[2021-08-25] MEDS: VITAMIN A PO SCH (08:34)
[2021-08-25] MEDS: VITAMIN D3 125 mcg (5,000 UNITS) PO SCH (08:34)
[2021-08-25] MEDS: ZINC SULFATE PO SCH (08:35)
[2021-08-25] MEDS: BROVANA IN SCH ×2 (09:30→20:00)
[2021-08-25] MEDS: PULMICORT NEB TX 0.5 MG NEB SCH ×2 (09:30→20:00)
[2021-08-25] MEDS: ZITHROMAX INJ 500 MG VIAL 500 MG in D5W 250 ML IV 250 ML IV SCH (10:23)
[2021-08-25] MEDS: VERSED 100 MG in NS 100 ML IV 80 ML IV PRN ×2 (10:24→23:11)
[2021-08-25 15:01] LABS: ABG BASE EXCESS 18.7 mmol/L (-2.0-2.0)
[2021-08-25 15:03] LABS: ABG HCO3 45.4 mmol/L (22-26)
[2021-08-25 15:04] LABS: ABG ALLEN TEST POS
[2021-08-25] MEDS ORDERED: CHRONULAC PO PRN (15:27)
[2021-08-25] MEDS: DIFLUCAN 100 MG IV (MIX by PHARMACY)* 100 MG/50 ML BAG IV SCH (17:23)
[2021-08-25] MEDS: CELEXA PO SCH (20:16)
[2021-08-25] MEDS: CHRONULAC PO SCH (20:17)
--- NOTE | 2021-08-25 21:07 | PCM.PROG ---
Progress Note - Subjective Subjective: IS A 71 YEAR OLD PATIENT WHO WAS RECENTLY TREATED FOR COVID PNEUMONIA. FOLLOWING TREATMENT, HE WAS DISCHARGED TO [facility] / [facility]. HE RETURNED DUE TO HYPOXIA AND PNEUMONIA. HE HAS REQUIRED INTUBATION FOR MECHANICAL VENTILATION. HIS VENT SETTINGS TODAY ARE: A/C, VENT RATE 26, TIDAL VOLUME 450, PEAK FLOW 40, PEEP 6, FI02 100. No significant change in condition. WE WILL CONTINUE WITH IV ANTIBIOTIC, STEROIDS, DUONEBS, ELIQUIS, AND CURRENT PLAN OF CARE. WE WILL WEAN OXYGEN TOLERATED. OTHERWISE, WE WILL FOLLOW UP WITH AM LABS AND CHEST XRAY AND CONTINUE TO MONITOR. TIME SPENT ON CLINICAL ASSESSMENT, REVIEWING LABS AND IMAGING, DECISION MAKING, AND DOCUMENTATION GREATER THAN 75 MINUTES. - Past Medical Family Social History Past Med/Fam/Surg Hx: No changes since H&P Allergies: Allergies No Known Drug Allergies Allergy (Verified 08/04/21 14:38) - Review of Systems ROS: No change since H&P - Vital Signs and I&O's Vital Signs: Temperature 98.7 F Pulse Rate [Left Brachial] 86 Pulse Rate 91 Respiratory Rate 26 Blood Pressure [Left Arm] 97/68 Blood Pressure [Right Arm] 97/59 Blood Pressure 137/64 O2 Sat by Pulse Oximetry 91 Intake and Output: Intake & Output 08/22/21 08/23/21 08/24/21 08/25/21 23:59 23:59 23:59 23:59 Intake Total 3708 / 3708 4730 / 4730 2883 / 2883 2036 / 2036 Output Total 1999 2850 / 2850 2525 / 2525 2475 / 2475 Balance 1708 / 1708 1880 / 1880 358 / 358 -438 / -438 - Physical Exam Oriented: Other (intubated, sedated.) Eyes: Normal Ear: Normal Nose: Normal Throat: Dry Respiratory: Diminished, Rhonchi (mechanical ventilation) Cardiovascular: Normal. negative: Edema : Normal Auscultation: Bowel Sounds: Normal Tenderness: Normal Skin: Decreased Turgur Musculoskeletal: Back:Lumbar Psychiatric: Other (sedated) Speech Pattern: Artificially Ventilated - Laboratory and Diagnostics Result Diagrams: 08/25/21 04:07 08/25/21 04:07 Labs: 08/17/21 12:42 Blood Blood Culture - Final 08/17/21 12:36 Blood Blood Culture - Final 08/17/21 14:25 Sputum - Expectorated Sputum Sputum Culture - Final 08/17/21 14:25 Sputum - Expectorated Sputum - Final Laboratory WBC 15.4 X10^3/uL (3.6-10.0) H 08/25/21 04:07 RBC 4.06 X10^6/uL (4.7-6.0) L 08/25/21 04:07 Hgb 12.5 g/dL (13.5-18.0) L 08/25/21 04:07 Hct 36.6 % (42.0-54.0) L 08/25/21 04:07 MCV 90.2 fL (80.0-100.0) 08/25/21 04:07 MCH 30.7 pg (27.0-34.0) 08/25/21 04:07 MCHC 34.0 g/dL (33.0-35.0) 08/25/21 04:07 RDW 13.3 % (11.6-16.5) 08/25/21 04:07 Plt Count 62 X10^3/uL (150.0-450.0) L 08/25/21 04:07 Plt Count Comment Decreased (ADEQUATE) 08/25/21 04:07 MPV 10.8 fL (7.4-11.0) 08/25/21 04:07 Neut % (Auto) 96.7 % (42.0-75.0) H 08/25/21 04:07 Lymph % (Auto) 1.0 % (21.0-51.0) L 08/25/21 04:07 Toombs % (Auto) 1.4 % (0.0-13.0) 08/25/21 04:07 Eos % (Auto) 0.1 % (0.9-2.9) L 08/25/21 04:07 Baso % (Auto) 0.8 % (0.2-1.0) 08/25/21 04:07 Neut # (Auto) 14.8 x10^3/uL (2.2-4.8) H 08/25/21 04:07 Lymph # (Auto) 0.2 X10^3/uL (1.3-2.9) L 08/25/21 04:07 Toombs # (Auto) 0.2 x10^3/uL (0.3-0.8) L 08/25/21 04:07 Eos # (Auto) 0.0 x10^3/uL (0.0-0.2) 08/25/21 04:07 Baso # (Auto) 0.1 X10^3/uL (0.0-0.1) 08/25/21 04:07 Absolute Nucleated RBC 0.2 /100WBC 08/25/21 04:07 Total Counted 100 08/25/21 04:07 Neutrophils % (Manual) 94 % (39-76) H 08/25/21 04:07 Band Neutrophils % 3 % (0-10) 08/25/21 04:07 Lymphocytes % (Manual) 1 % (13-43) L 08/25/21 04:07 Monocytes % (Manual) 2 % (4-9) L 08/25/21 04:07 Plt Morphology Comment Normal (NORMAL) 08/25/21 04:07 RBC Morphology Normal (NORMAL) 08/25/21 04:07 PT 14.1 SECONDS (11.8-14.3) 08/20/21 19:00 INR Target Range - 08/20/21 19:00 INR 1.14 (0.8-1.3) 08/20/21 19:00 APTT 66.5 SECONDS (22.9-36.5) H 08/21/21 20:56 PTT Comment - 08/21/21 20:56 D-Dimer 2.06 ug/ml (0.0-0.57) H* 08/25/21 04:07 Sample Site Lr 08/25/21 14:59 ABG pH 7.480 (7.35-7.45) H 08/25/21 14:59 ABG pCO2 61.0 mmHg (35.0-45.0) H* 08/25/21 14:59 ABG pO2 64.0 mmHg (80.0-100.0) L 08/25/21 14:59 ABG HCO3 45.4 mmol/L (22-26) H* 08/25/21 14:59 ABG O2 Saturation 94.0 % (90-100) 08/25/21 14:59 ABG Base Excess 18.7 mmol/L (-2.0-2.0) H 08/25/21 14:59 Nakul Test Pos 08/25/21 14:59 A-a Gradient 573.0 mmHg 08/25/21 14:59 FiO2 100.0 08/25/21 14:59 Blood Gas Comments Pt karla well 08/25/21 14:59 Sodium 132 mmol/L (136-145) L 08/25/21 04:07 Corrected Sodium 135 mmol/L (136-145) L 08/25/21 04:07 Potassium 5.0 mmol/L (3.5-5.1) 08/25/21 04:07 Chloride 98 mmol/L (98-107) 08/25/21 04:07 Carbon Dioxide 38.6 mmol/L (21-32) H 08/25/21 04:07 BUN 31 mg/dL (7-18) H 08/25/21 04:07 Creatinine 0.66 mg/dL (0.70-1.30) L 08/25/21 04:07 Est GFR (MDRD) Af Amer > 60 (>60) 08/25/21 04:07 Est GFR (MDRD) Non-Af > 60 (>60) 08/25/21 04:07 Glucose 240 mg/dL (65-99) H 08/25/21 04:07 POC Glucose (mg/dL) 188 mg/dL (65-99) H 08/25/21 19:22 Hemoglobin A1c 7.4 % 08/17/21 10:05 Calcium 8.6 mg/dL (8.5-10.1) 08/25/21 04:07 Corrected Calcium 10.4 mg/dL (8.5-10.1) H 08/25/21 04:07 Magnesium 2.6 mg/dL (1.7-2.9) 08/21/21 04:36 Ferritin 2697 ng/mL (26-388) H 08/20/21 15:40 Total Bilirubin 0.60 mg/dL (0.2-1.0) 08/25/21 04:07 AST 29 Units/L (15-37) 08/25/21 04:07 ALT 79 Units/L (12-78) H 08/25/21 04:07 Alkaline Phosphatase 96 Units/L (46-116) 08/25/21 04:07 Creatine Kinase 87 Units/L (39-308) 08/17/21 10:05 CK-MB (CK-2) 1.9 ng/mL (0-4.0) 08/17/21 10:05 CK/CKMB % Calc 2.2 % (<4) 08/17/21 10:05 Troponin I < 0.02 ng/mL (0-1.5) 08/17/21 10:05 C-Reactive Protein 50.70 mg/L (0-3.0) H 08/25/21 04:07 B-Natriuretic Peptide 69.7 pg/mL (0-79) 08/25/21 04:07 Total Protein 5.7 g/dL (6.4-8.2) L 08/25/21 04:07 Albumin 1.8 g/dL (3.4-5.0) L 08/25/21 04:07 Globulin 3.9 g/dL (2.5-4.5) 08/25/21 04:07 Albumin/Globulin Ratio 0.5 Ratio (1.1-2.1) L 08/25/21 04:07 Specimen Type Catherized urine 08/20/21 11:56 Urine Color Straw (YELLOW) 08/20/21 11:56 Urine Appearance Clear (CLEAR) 08/20/21 11:56 Urine pH 7.0 (5.0 - 8.0) 08/20/21 11:56 Ur Specific Harris 1.010 (1.000-1.030) 08/20/21 11:56 Urine Protein Negative (NEGATIVE) 08/20/21 11:56 Urine Glucose (UA) 1+ (NEGATIVE) 08/20/21 11:56 Urine Ketones Negative (NEGATIVE) 08/20/21 11:56 Urine Occult Blood 1+ (NEGATIVE) 08/20/21 11:56 Urine Nitrite Negative (NEGATIVE) 08/20/21 11:56 Urine Bilirubin Negative (NEGATIVE) 08/20/21 11:56 Urine Urobilinogen Normal (NORMAL) 08/20/21 11:56 Ur Leukocyte Esterase Negative (NEGATIVE) 08/20/21 11:56 Urine RBC 5-10 /HPF (0-3) A 08/20/21 11:56 Urine WBC None seen /HPF (0-5) 08/20/21 11:56 Ur Squamous Epith Cells Negative /HPF (NEGATIVE) 08/20/21 11:56 Amorphous Sediment 1+ /HPF (NEGATIVE) 08/17/21 12:12 Urine Bacteria Negative /HPF (NEGATIVE) 08/20/21 11:56 Coarse Granular Casts Rare /HPF (NEGATIVE) 08/17/21 12:12 Urine Mucus Few /HPF (NEGATIVE) 08/17/21 12:12 Ur Culture Indicated? No/not indicated 08/20/21 11:56 Acetone, Semi-Quant Negative (NEGATIVE) 08/17/21 10:05 SARS-CoV-2 (PCR) Negative (NEGATIVE) 08/17/21 11:37 Influenza Type A (PCR) Negative (NEGATIVE) 08/17/21 11:37 Influenza Type B (PCR) Negative (NEGATIVE) 08/17/21 11:37 RSV (PCR) Negative (NEGATIVE) 08/17/21 11:37 SARS CoV-2 RNA Rapid ERA Positive (NEGATIVE) A 08/20/21 21:19 - Plan (1) Pneumonia due to COVID-19 virus Status: Acute Plan: IV abx and steroids, duo nebs, repeat ABG, labs, CXR in am. Mechanical ventilation (2) Acute hypoxemic respiratory failure due to COVID-19 Status: Acute Plan: as above (3) Acute respiratory distress Status: Acute Plan: HX OF COVID 19 PNEUMONIA WITH HYPOXIA. ADMIT, CARDIAC MONITORING, SUPPLEMENTAL O2. IV HYDRATION, CTA ON ADMISSION IN ER NEGATIVE FOR PE. PT/RT/OT (4) Hypoxia Status: Acute Plan: ABOVE (5) Thrombocytopenia Status: Acute Plan: d/c heparin drip. start eliquis 5mg po bid
[2021-08-26] MEDS: DIPRIVAN PREMIX 1 GRAM IV 1,000 MG/100 ML VIAL IV PRN ×6 (00:05→20:02)
[2021-08-26] MEDS: CHRONULAC PO SCH ×2 (03:00→08:41)
[2021-08-26 04:16] LABS: ABG BASE EXCESS 18.6 mmol/L (-2.0-2.0)
[2021-08-26 04:17] LABS: ABG ALLEN TEST POS; ABG HCO3 46.5 mmol/L (22-26)
[2021-08-26] MEDS: XOPENEX 1.25 MG/3 ML NEBULE NEB SCH ×4 (05:00→17:15)
[2021-08-26] MEDS: SOLU-Medrol 40 MG VIAL IVP SCH ×3 (05:18→21:44)
[2021-08-26] MEDS: ZOSYN VIAL 3.375 GRAMS 3.375 G in NS 100 ML IV + SPIKE MINIBAG* 100 ML IV SCH ×3 (05:18→21:44)
[2021-08-26 05:31] LABS: BASOPHILS % (AUTO) 0.2 % (0.2-1.0); HEMATOCRIT 35.4 % (42.0-54.0); HEMOGLOBIN 11.9 g/dL (13.5-18.0); LYMPHOCYTES # (AUTO) 0.3 X10^3/uL (1.3-2.9); LYMPHOCYTES % (AUTO) 1.9 % (21.0-51.0); MEAN CORPUSCULAR HEMOGLOBIN 30.5 pg (27.0-34.0); MEAN CORPUSCULAR HGB CONC 33.6 g/dL (33.0-35.0); MEAN CORPUSCULAR VOLUME 90.7 fL (80.0-100.0); MEAN PLATELET VOLUME 10.4 fL (7.4-11.0); MONOCYTES # (AUTO) 0.4 x10^3/uL (0.3-0.8); MONOCYTES % (AUTO) 3.3 % (0.0-13.0); NEUTROPHILS # (AUTO) 12.3 x10^3/uL (2.2-4.8); NEUTROPHILS % (AUTO) 94.6 % (42.0-75.0); PLATELET COUNT 74 X10^3/uL (150.0-450.0); RED CELL DISTRIBUTION WIDTH 13.2 % (11.6-16.5)
[2021-08-26 05:42] LABS: ALANINE AMINOTRANSFERASE 63 Units/L (12-78); ALBUMIN 1.7 g/dL (3.4-5.0); ALKALINE PHOSPHATASE 96 Units/L (46-116); ASPARTATE AMINO TRANSFERASE 23 Units/L (15-37); BLOOD UREA NITROGEN 34 mg/dL (7-18); CALCIUM 8.8 mg/dL (8.5-10.1); CARBON DIOXIDE 39.3 mmol/L (21-32); CHLORIDE 102 mmol/L (98-107); COR CA(FOR HYPOALB) 10.6 mg/dL (8.5-10.1); COR NA(FOR HYPERGLY) 144 mmol/L (136-145); CREATININE 0.69 mg/dL (0.70-1.30); SODIUM 140 mmol/L (136-145); TOTAL PROTEIN 5.4 g/dL (6.4-8.2); eGFR NON BLACK RACES > 60 (>60)
[2021-08-26 05:56] LABS: BAND NEUTROPHILS % 4 % (0-10); PLATELET MORPHOLOGY COMMENT NORMAL (NORMAL)
[2021-08-26] MEDS: HumuLIN R SUBCUT PRN ×4 (06:10→21:44)
--- NOTE | 2021-08-26 07:11 | RAD ---
HISTORYSOBSTUDYCHEST, 1 VIEWCOMPARISONOne day prior.TECHNIQUEAP view of the chestFINDINGSET tube in good position. Left subclavian central line is in good position. NG tube courses below the visualized field of view. Cardiac and mediastinal contours are within normal limits. No significant change in bilateral airspace and interstitial opacities. No definite pleural effusion or pneumothorax.IMPRESSIONNo significant change.Electronically signed by: Williams Orellana (Aug 26, 2021 07:09:44)
[2021-08-26] MEDS: DIFLUCAN 100 MG IV (MIX by PHARMACY)* 100 MG/50 ML BAG IV SCH (08:41)
[2021-08-26] MEDS: COLACE SYRUP 100 MG UDC PO SCH ×2 (08:41→20:03)
[2021-08-26] MEDS: ELIQUIS NG SCH ×2 (08:41→20:03)
[2021-08-26] MEDS: KLONOPIN TAB 0.5 MG PO SCH ×2 (08:41→20:04)
[2021-08-26] MEDS: LOPRESSOR TAB 25 MG GT SCH ×2 (08:42→20:05)
[2021-08-26] MEDS: MILK OF MAGNESIA GT SCH ×4 (08:42→20:06)
[2021-08-26] MEDS: NORVASC TAB 5 MG PO SCH (08:42)
[2021-08-26] MEDS: NS 1/2 1000 ML IV 1,000 ML IV SCH (08:42)
[2021-08-26] MEDS: LACRI-LUBE S.O.P. AFFEYE SCH ×2 (08:42→20:04)
[2021-08-26] MEDS: VITAMIN A PO SCH (08:43)
[2021-08-26] MEDS: ZINC SULFATE PO SCH (08:43)
[2021-08-26] MEDS: PEPCID TAB 40 MG PO SCH ×2 (08:43→20:08)
[2021-08-26] MEDS: TRICOR TAB 160 MG PO SCH (08:43)
[2021-08-26] MEDS: VITAMIN D3 125 mcg (5,000 UNITS) PO SCH (08:43)
[2021-08-26] MEDS: VITAMIN C PO SCH (08:43)
[2021-08-26] MEDS: BROVANA IN SCH ×2 (09:25→20:59)
[2021-08-26] MEDS: PULMICORT NEB TX 0.5 MG NEB SCH ×2 (09:25→20:59)
[2021-08-26] MEDS: ZITHROMAX INJ 500 MG VIAL 500 MG in D5W 250 ML IV 250 ML IV SCH (09:44)
[2021-08-26] MEDS: VERSED 100 MG in NS 100 ML IV 80 ML IV PRN (14:25)
[2021-08-26] MEDS: CELEXA PO SCH (20:03)
[2021-08-27] MEDS: DIPRIVAN PREMIX 1 GRAM IV 1,000 MG/100 ML VIAL IV PRN ×5 (00:21→19:25)
[2021-08-27] MEDS: XOPENEX 1.25 MG/3 ML NEBULE NEB SCH ×4 (00:31→17:00)
[2021-08-27 04:39] LABS: ABG BASE EXCESS 21.2 mmol/L (-2.0-2.0)
[2021-08-27 04:41] LABS: ABG ALLEN TEST POS; ABG HCO3 48.4 mmol/L (22-26)
[2021-08-27 04:51] LABS: BASOPHILS % (AUTO) 0.1 % (0.2-1.0); HEMATOCRIT 33.1 % (42.0-54.0); HEMOGLOBIN 11.2 g/dL (13.5-18.0); LYMPHOCYTES # (AUTO) 0.3 X10^3/uL (1.3-2.9); LYMPHOCYTES % (AUTO) 2.6 % (21.0-51.0); MEAN CORPUSCULAR HEMOGLOBIN 30.4 pg (27.0-34.0); MEAN CORPUSCULAR VOLUME 89.5 fL (80.0-100.0); MEAN PLATELET VOLUME 10.7 fL (7.4-11.0); MONOCYTES # (AUTO) 0.4 x10^3/uL (0.3-0.8); MONOCYTES % (AUTO) 3.5 % (0.0-13.0); NEUTROPHILS # (AUTO) 10.4 x10^3/uL (2.2-4.8); NEUTROPHILS % (AUTO) 93.8 % (42.0-75.0); PLATELET COUNT 93 X10^3/uL (150.0-450.0); RED CELL DISTRIBUTION WIDTH 13.3 % (11.6-16.5); WHITE BLOOD COUNT 11.1 X10^3/uL (3.6-10.0)
[2021-08-27 05:05] LABS: ALANINE AMINOTRANSFERASE 54 Units/L (12-78); ALBUMIN 1.6 g/dL (3.4-5.0); ALKALINE PHOSPHATASE 98 Units/L (46-116); ASPARTATE AMINO TRANSFERASE 26 Units/L (15-37); BLOOD UREA NITROGEN 31 mg/dL (7-18); CALCIUM 8.4 mg/dL (8.5-10.1); CARBON DIOXIDE 39.6 mmol/L (21-32); CHLORIDE 102 mmol/L (98-107); COR CA(FOR HYPOALB) 10.3 mg/dL (8.5-10.1); COR NA(FOR HYPERGLY) 144 mmol/L (136-145); CREATININE 0.65 mg/dL (0.70-1.30); MAGNESIUM 2.5 mg/dL (1.7-2.9); SODIUM 142 mmol/L (136-145); eGFR NON BLACK RACES > 60 (>60)
[2021-08-27] MEDS: SOLU-Medrol 40 MG VIAL IVP SCH ×3 (05:17→21:02)
[2021-08-27] MEDS: ZOSYN VIAL 3.375 GRAMS 3.375 G in NS 100 ML IV + SPIKE MINIBAG* 100 ML IV SCH (05:17)
[2021-08-27 05:24] LABS: BAND NEUTROPHILS % 4 % (0-10); PLATELET MORPHOLOGY COMMENT NORMAL (NORMAL)
[2021-08-27] MEDS: VERSED 100 MG in NS 100 ML IV 80 ML IV PRN ×2 (05:28→19:25)
[2021-08-27] MEDS: HumuLIN R SUBCUT PRN ×3 (05:30→20:58)
--- NOTE | 2021-08-27 07:07 | RAD ---
HISTORYHYPOXIA, VENTILATOR DEPENDENCESTUDYCHEST, 1 [id number]/26/2021.TECHNIQUEAP view of the chestFINDINGSET tube in good position. Left subclavian central line is in good position. NG tube courses below the visualized field of view. Cardiac and mediastinal contours are within normal limits. No significant change in bilateral airspace and interstitial opacities. No definite pleural effusion or pneumothorax.IMPRESSIONNo significant change.Electronically signed by: Williams Orellana (Aug 27, 2021 07:05:39)
[2021-08-27] MEDS ORDERED: CHRONULAC PO PRN (09:00)
[2021-08-27] MEDS: COLACE SYRUP 100 MG UDC PO SCH ×2 (09:04→20:55)
[2021-08-27] MEDS: DIFLUCAN 100 MG IV (MIX by PHARMACY)* 100 MG/50 ML BAG IV SCH (09:04)
[2021-08-27] MEDS: MILK OF MAGNESIA GT SCH ×4 (09:05→20:57)
[2021-08-27] MEDS: KLONOPIN TAB 0.5 MG PO SCH ×2 (09:05→20:56)
[2021-08-27] MEDS: ELIQUIS NG SCH ×2 (09:05→20:56)
[2021-08-27] MEDS: LACRI-LUBE S.O.P. AFFEYE SCH ×2 (09:05→20:56)
[2021-08-27] MEDS: LOPRESSOR TAB 25 MG GT SCH ×2 (09:05→20:57)
[2021-08-27] MEDS: VITAMIN C PO SCH (09:06)
[2021-08-27] MEDS: VITAMIN A PO SCH (09:06)
[2021-08-27] MEDS: VITAMIN D3 125 mcg (5,000 UNITS) PO SCH (09:06)
[2021-08-27] MEDS: TRICOR TAB 160 MG PO SCH (09:06)
[2021-08-27] MEDS: NORVASC TAB 5 MG PO SCH (09:06)
[2021-08-27] MEDS: PEPCID TAB 40 MG PO SCH ×2 (09:06→20:58)
[2021-08-27] MEDS: ZITHROMAX INJ 500 MG VIAL 500 MG in D5W 250 ML IV 250 ML IV SCH (09:07)
[2021-08-27] MEDS: ZINC SULFATE PO SCH (09:07)
[2021-08-27] MEDS: PULMICORT NEB TX 0.5 MG NEB SCH ×2 (09:15→21:10)
[2021-08-27] MEDS: BROVANA IN SCH ×2 (09:15→21:10)
[2021-08-27] MEDS: NS 1/2 1000 ML IV 1,000 ML IV SCH (11:44)
[2021-08-27] MEDS ORDERED: ELIQUIS PO SCH (15:30)
--- NOTE | 2021-08-27 17:14 | PCM.PROG ---
Progress Note - Progress Note for Day of Date of Exam: 08/27/21 - Subjective Subjective: IS A 71 YEAR OLD PATIENT WHO WAS RECENTLY TREATED FOR COVID PNEUMONIA. FOLLOWING TREATMENT, HE WAS DISCHARGED TO [facility]. HE RETURNED DUE TO HYPOXIA AND PNEUMONIA. HE HAS REQUIRED INTUBATION FOR MECHANICAL VENTILATION. No significant change in condition. WE WILL CONTINUE WITH IV ANTIBIOTIC, STEROIDS, DUONEBS, ELIQUIS, AND CURRENT PLAN OF CARE. WE WILL WEAN OXYGEN TOLERATED. OTHERWISE, WE WILL FOLLOW UP WITH AM LABS AND CHEST XRAY AND CONTINUE TO MONITOR. TIME SPENT ON CLINICAL ASSESSMENT, REVIEWING LABS AND IMAGING, DECISION MAKING, AND DOCUMENTATION GREATER THAN 75 MINUTES. - Past Medical Family Social History Past Med/Fam/Surg Hx: No changes since H&P Allergies: Allergies No Known Drug Allergies Allergy (Verified 08/04/21 14:38) - Review of Systems ROS: No change since H&P - Vital Signs and I&O's Vital Signs: Temperature 97.4 F Pulse Rate [Left Brachial] 86 Pulse Rate 95 Respiratory Rate 27 Blood Pressure [Left Arm] 97/68 Blood Pressure [Right Arm] 97/59 Blood Pressure 154/72 O2 Sat by Pulse Oximetry 89 Intake and Output: Intake & Output 08/24/21 08/25/21 08/26/21 08/27/21 23:59 23:59 23:59 23:59 Intake Total 2883 / 2883 2659 / 2659 3780 / 3780 2049 / 2049 Output Total 2525 / 2525 3275 / 3275 3300 / 3300 1275 / 1275 Balance 358 / 358 -616 / -616 480 / 480 775 / 775 - Physical Exam Oriented: Other (intubated, sedated.) Eyes: Normal Ear: Normal Nose: Normal Throat: Dry Respiratory: Diminished, Rhonchi (mechanical ventilation) Cardiovascular: Normal. negative: Edema : Normal Auscultation: Bowel Sounds: Normal Tenderness: Normal Skin: Decreased Turgur Musculoskeletal: Back:Lumbar Psychiatric: Other (sedated) Speech Pattern: Artificially Ventilated - Laboratory and Diagnostics Result Diagrams: 08/27/21 04:25 08/27/21 04:25 Labs: 08/17/21 12:42 Blood Blood Culture - Final 08/17/21 12:36 Blood Blood Culture - Final 08/17/21 14:25 Sputum - Expectorated Sputum Sputum Culture - Final 08/17/21 14:25 Sputum - Expectorated Sputum - Final Laboratory WBC 11.1 X10^3/uL (3.6-10.0) H 08/27/21 04:25 RBC 3.70 X10^6/uL (4.7-6.0) L 08/27/21 04:25 Hgb 11.2 g/dL (13.5-18.0) L 08/27/21 04:25 Hct 33.1 % (42.0-54.0) L 08/27/21 04:25 MCV 89.5 fL (80.0-100.0) 08/27/21 04:25 MCH 30.4 pg (27.0-34.0) 08/27/21 04:25 MCHC 34.0 g/dL (33.0-35.0) 08/27/21 04:25 RDW 13.3 % (11.6-16.5) 08/27/21 04:25 Plt Count 93 X10^3/uL (150.0-450.0) L 08/27/21 04:25 Plt Count Comment Decreased (ADEQUATE) 08/27/21 04:25 MPV 10.7 fL (7.4-11.0) 08/27/21 04:25 Neut % (Auto) 93.8 % (42.0-75.0) H 08/27/21 04:25 Lymph % (Auto) 2.6 % (21.0-51.0) L 08/27/21 04:25 Garrett % (Auto) 3.5 % (0.0-13.0) 08/27/21 04:25 Eos % (Auto) 0.0 % (0.9-2.9) L 08/27/21 04:25 Baso % (Auto) 0.1 % (0.2-1.0) L 08/27/21 04:25 Neut # (Auto) 10.4 x10^3/uL (2.2-4.8) H 08/27/21 04:25 Lymph # (Auto) 0.3 X10^3/uL (1.3-2.9) L 08/27/21 04:25 Garrett # (Auto) 0.4 x10^3/uL (0.3-0.8) 08/27/21 04:25 Eos # (Auto) 0.0 x10^3/uL (0.0-0.2) 08/27/21 04:25 Baso # (Auto) 0.0 X10^3/uL (0.0-0.1) 08/27/21 04:25 Absolute Nucleated RBC 0.0 /100WBC 08/27/21 04:25 Total Counted 100 08/27/21 04:25 Neutrophils % (Manual) 87 % (39-76) H 08/27/21 04:25 Band Neutrophils % 4 % (0-10) 08/27/21 04:25 Lymphocytes % (Manual) 3 % (13-43) L 08/27/21 04:25 Monocytes % (Manual) 6 % (4-9) 08/27/21 04:25 Plt Morphology Comment Normal (NORMAL) 08/27/21 04:25 RBC Morphology Normal (NORMAL) 08/27/21 04:25 PT 14.1 SECONDS (11.8-14.3) 08/20/21 19:00 INR Target Range - 08/20/21 19:00 INR 1.14 (0.8-1.3) 08/20/21 19:00 APTT 66.5 SECONDS (22.9-36.5) H 08/21/21 20:56 PTT Comment - 08/21/21 20:56 D-Dimer 2.97 ug/ml (0.0-0.57) H* 08/27/21 04:25 Sample Site Lrad 08/27/21 04:38 ABG pH 7.480 (7.35-7.45) H 08/27/21 04:38 ABG pCO2 65.0 mmHg (35.0-45.0) H* 08/27/21 04:38 ABG pO2 55.0 mmHg (80.0-100.0) L 08/27/21 04:38 ABG HCO3 48.4 mmol/L (22-26) H* 08/27/21 04:38 ABG O2 Saturation 90.0 % (90-100) 08/27/21 04:38 ABG Base Excess 21.2 mmol/L (-2.0-2.0) H 08/27/21 04:38 Nakul Test Pos 08/27/21 04:38 A-a Gradient 577.0 mmHg 08/27/21 04:38 FiO2 100.0 08/27/21 04:38 Blood Gas Comments Cj well-mtf 08/27/21 04:38 Sodium 142 mmol/L (136-145) 08/27/21 04:25 Corrected Sodium 144 mmol/L (136-145) 08/27/21 04:25 Potassium 5.2 mmol/L (3.5-5.1) H 08/27/21 04:25 Chloride 102 mmol/L (98-107) 08/27/21 04:25 Carbon Dioxide 39.6 mmol/L (21-32) H 08/27/21 04:25 BUN 31 mg/dL (7-18) H 08/27/21 04:25 Creatinine 0.65 mg/dL (0.70-1.30) L 08/27/21 04:25 Est GFR (MDRD) Af Amer > 60 (>60) 08/27/21 04:25 Est GFR (MDRD) Non-Af > 60 (>60) 08/27/21 04:25 Glucose 200 mg/dL (65-99) H 08/27/21 04:25 POC Glucose (mg/dL) 349 mg/dL (65-99) H 08/27/21 11:38 Hemoglobin A1c 7.4 % 08/17/21 10:05 Calcium 8.4 mg/dL (8.5-10.1) L 08/27/21 04:25 Corrected Calcium 10.3 mg/dL (8.5-10.1) H 08/27/21 04:25 Magnesium 2.5 mg/dL (1.7-2.9) 08/27/21 04:25 Ferritin 2697 ng/mL (26-388) H 08/20/21 15:40 Total Bilirubin 0.60 mg/dL (0.2-1.0) 08/27/21 04:25 AST 26 Units/L (15-37) 08/27/21 04:25 ALT 54 Units/L (12-78) 08/27/21 04:25 Alkaline Phosphatase 98 Units/L (46-116) 08/27/21 04:25 Creatine Kinase 87 Units/L (39-308) 08/17/21 10:05 CK-MB (CK-2) 1.9 ng/mL (0-4.0) 08/17/21 10:05 CK/CKMB % Calc 2.2 % (<4) 08/17/21 10:05 Troponin I < 0.02 ng/mL (0-1.5) 08/17/21 10:05 C-Reactive Protein 33.90 mg/L (0-3.0) H 08/27/21 04:25 B-Natriuretic Peptide 69.0 pg/mL (0-79) 08/27/21 04:25 Total Protein 5.0 g/dL (6.4-8.2) L 08/27/21 04:25 Albumin 1.6 g/dL (3.4-5.0) L 08/27/21 04:25 Globulin 3.4 g/dL (2.5-4.5) 08/27/21 04:25 Albumin/Globulin Ratio 0.5 Ratio (1.1-2.1) L 08/27/21 04:25 Specimen Type Catherized urine 08/20/21 11:56 Urine Color Straw (YELLOW) 08/20/21 11:56 Urine Appearance Clear (CLEAR) 08/20/21 11:56 Urine pH 7.0 (5.0 - 8.0) 08/20/21 11:56 Ur Specific Pat[place] 1.010 (1.000-1.030) 08/20/21 11:56 Urine Protein Negative (NEGATIVE) 08/20/21 11:56 Urine Glucose (UA) 1+ (NEGATIVE) 08/20/21 11:56 Urine Ketones Negative (NEGATIVE) 08/20/21 11:56 Urine Occult Blood 1+ (NEGATIVE) 08/20/21 11:56 Urine Nitrite Negative (NEGATIVE) 08/20/21 11:56 Urine Bilirubin Negative (NEGATIVE) 08/20/21 11:56 Urine Urobilinogen Normal (NORMAL) 08/20/21 11:56 Ur Leukocyte Esterase Negative (NEGATIVE) 08/20/21 11:56 Urine RBC 5-10 /HPF (0-3) A 08/20/21 11:56 Urine WBC None seen /HPF (0-5) 08/20/21 11:56 Ur Squamous Epith Cells Negative /HPF (NEGATIVE) 08/20/21 11:56 Amorphous Sediment 1+ /HPF (NEGATIVE) 08/17/21 12:12 Urine Bacteria Negative /HPF (NEGATIVE) 08/20/21 11:56 Coarse Granular Casts Rare /HPF (NEGATIVE) 08/17/21 12:12 Urine Mucus Few /HPF (NEGATIVE) 08/17/21 12:12 Ur Culture Indicated? No/not indicated 08/20/21 11:56 Acetone, Semi-Quant Negative (NEGATIVE) 08/17/21 10:05 SARS-CoV-2 (PCR) Negative (NEGATIVE) 08/17/21 11:37 Influenza Type A (PCR) Negative (NEGATIVE) 08/17/21 11:37 Influenza Type B (PCR) Negative (NEGATIVE) 08/17/21 11:37 RSV (PCR) Negative (NEGATIVE) 08/17/21 11:37 SARS CoV-2 RNA Rapid ERA Positive (NEGATIVE) A 08/20/21 21:19 - Plan (1) Pneumonia due to COVID-19 virus Status: Acute Plan: IV abx and steroids, duo nebs, repeat ABG, labs, CXR in am. Mechanical ventilation (2) Acute hypoxemic respiratory failure due to COVID-19 Status: Acute Plan: as above (3) Acute respiratory distress Status: Acute Plan: HX OF COVID 19 PNEUMONIA WITH HYPOXIA. ADMIT, CARDIAC MONITORING, SUPPLEMENTAL O2. IV HYDRATION, CTA ON ADMISSION IN ER NEGATIVE FOR PE. PT/RT/OT (4) Hypoxia Status: Acute Plan: ABOVE (5) Thrombocytopenia Status: Acute Plan: eliquis 5mg po bid
[2021-08-27] MEDS: CELEXA PO SCH (20:55)
[2021-08-27] MEDS ORDERED: MUCINEX EXPECTORANT PO ONE (22:57)
[2021-08-27] MEDS: MUCINEX EXPECTORANT PO SCH (23:03)
[2021-08-28] MEDS: XOPENEX 1.25 MG/3 ML NEBULE NEB SCH ×3 (00:05→13:05)
[2021-08-28] MEDS: DIPRIVAN PREMIX 1 GRAM IV 1,000 MG/100 ML VIAL IV PRN ×4 (00:34→14:32)
[2021-08-28 05:27] LABS: BASOPHILS % (AUTO) 0.1 % (0.2-1.0); HEMOGLOBIN 11.8 g/dL (13.5-18.0); LYMPHOCYTES # (AUTO) 0.3 X10^3/uL (1.3-2.9); LYMPHOCYTES % (AUTO) 2.3 % (21.0-51.0); MEAN CORPUSCULAR HEMOGLOBIN 30.2 pg (27.0-34.0); MEAN CORPUSCULAR HGB CONC 33.9 g/dL (33.0-35.0); MEAN CORPUSCULAR VOLUME 89.3 fL (80.0-100.0); MEAN PLATELET VOLUME 10.7 fL (7.4-11.0); MONOCYTES # (AUTO) 0.5 x10^3/uL (0.3-0.8); MONOCYTES % (AUTO) 4.3 % (0.0-13.0); NEUTROPHILS # (AUTO) 10.8 x10^3/uL (2.2-4.8); NEUTROPHILS % (AUTO) 93.3 % (42.0-75.0); PLATELET COUNT 110 X10^3/uL (150.0-450.0); RED BLOOD COUNT 3.91 X10^6/uL (4.7-6.0); RED CELL DISTRIBUTION WIDTH 13.1 % (11.6-16.5); WHITE BLOOD COUNT 11.6 X10^3/uL (3.6-10.0)
[2021-08-28 05:32] LABS: ABG HCO3 51.6 mmol/L (22-26)
[2021-08-28 05:33] LABS: ABG ALLEN TEST POS
[2021-08-28 05:38] LABS: ALANINE AMINOTRANSFERASE 53 Units/L (12-78); ALBUMIN 1.7 g/dL (3.4-5.0); ALKALINE PHOSPHATASE 120 Units/L (46-116); ASPARTATE AMINO TRANSFERASE 26 Units/L (15-37); BLOOD UREA NITROGEN 27 mg/dL (7-18); CALCIUM 8.5 mg/dL (8.5-10.1); CHLORIDE 103 mmol/L (98-107); COR CA(FOR HYPOALB) 10.3 mg/dL (8.5-10.1); COR NA(FOR HYPERGLY) 144 mmol/L (136-145); CREATININE 0.56 mg/dL (0.70-1.30); MAGNESIUM 2.7 mg/dL (1.7-2.9); SODIUM 143 mmol/L (136-145); TOTAL PROTEIN 5.1 g/dL (6.4-8.2); eGFR NON BLACK RACES > 60 (>60)
[2021-08-28 06:03] LABS: BAND NEUTROPHILS % 6 % (0-10); PLATELET MORPHOLOGY COMMENT NORMAL (NORMAL)
[2021-08-28 06:08] LABS: CARBON DIOXIDE 42.2 mmol/L (21-32)
[2021-08-28] MEDS: SOLU-Medrol 40 MG VIAL IVP SCH ×2 (06:09→14:30)
[2021-08-28] MEDS ORDERED: BUTT CREAM (COMPOUND) TOP PRN (06:49)
--- NOTE | 2021-08-28 07:21 | RAD ---
HISTORYPT ON VENT, O2 83%STUDYCHEST, 1 [id number]/27/2021.TECHNIQUEAP view of the chestFINDINGSET tube in good position. Left subclavian central line is in good position. NG tube courses below the visualized field of view. Cardiac and mediastinal contours are within normal limits. No significant change in bilateral airspace and interstitial opacities. No definite pleural effusion or pneumothorax.IMPRESSIONNo significant change.Electronically signed by: Williams Orellana (Aug 28, 2021 07:18:26)
[2021-08-28] MEDS: PULMICORT NEB TX 0.5 MG NEB SCH (08:12)
[2021-08-28] MEDS: BROVANA IN SCH (08:12)
[2021-08-28] MEDS: VERSED 100 MG in NS 100 ML IV 80 ML IV PRN (08:13)
[2021-08-28] MEDS: DIFLUCAN 100 MG IV (MIX by PHARMACY)* 100 MG/50 ML BAG IV SCH (08:16)
[2021-08-28] MEDS: LACRI-LUBE S.O.P. AFFEYE SCH (08:16)
[2021-08-28] MEDS: COLACE SYRUP 100 MG UDC PO SCH (08:16)
[2021-08-28] MEDS: MILK OF MAGNESIA GT SCH ×3 (08:17→16:51)
[2021-08-28] MEDS ORDERED: SALINE 3% 15 ML NEB TX ONE (08:43)
[2021-08-28] MEDS: ELIQUIS NG SCH (09:30)
[2021-08-28] MEDS: KLONOPIN TAB 0.5 MG PO SCH (09:30)
[2021-08-28] MEDS: ZITHROMAX INJ 500 MG VIAL 500 MG in D5W 250 ML IV 250 ML IV SCH (09:31)
[2021-08-28] MEDS: VITAMIN D3 125 mcg (5,000 UNITS) PO SCH (09:32)
[2021-08-28] MEDS: PEPCID TAB 40 MG PO SCH (09:32)
[2021-08-28] MEDS: ZINC SULFATE PO SCH (09:32)
[2021-08-28] MEDS: VITAMIN C PO SCH (09:33)
[2021-08-28] MEDS: VITAMIN A PO SCH (09:34)
[2021-08-28] MEDS: MUCINEX EXPECTORANT PO SCH (09:34)
[2021-08-28] MEDS: TRICOR TAB 160 MG PO SCH (09:34)
[2021-08-28] MEDS: NS 1/2 1000 ML IV 1,000 ML IV SCH (09:35)
[2021-08-28] MEDS: NORVASC TAB 5 MG PO SCH (11:35)
[2021-08-28] MEDS: LOPRESSOR TAB 25 MG GT SCH (11:35)
[2021-08-28 13:32] VITALS: BP 150/70
[2021-08-28 15:39] LABS: ABG ALLEN TEST POS; ABG PCO2 > 115.0 mmHg (35.0-45.0)
--- NOTE | 2021-08-28 15:42 | PCM.PROG ---
Progress Note - Subjective Subjective: IS A 71 YEAR OLD PATIENT WHO WAS RECENTLY TREATED FOR COVID PNEUMONIA AT [facility]. FOLLOWING TREATMENT, HE WAS DISCHARGED TO [facility] ON OXYGEN. HE RETURNED DUE TO HYPOXIA. HE REQUIRED INTUBATION DUE TO ACUTE RESP FAILURE. No significant change in condition. WE WILL CONTINUE WITH IV ANTIBIOTIC, STEROIDS, DUONEBS, ELIQUIS, AND CURRENT PLAN OF CARE. WE WILL WEAN O XYGEN TOLERATED. OTHERWISE, WE WILL FOLLOW UP WITH AM LABS AND CHEST XRAY AND CONTINUE TO MONITOR. TIME SPENT ON CLINICAL ASSESSMENT, REVIEWING LABS AND IMAGING, DECISION MAKING, AND DOCUMENTATION GREATER THAN 75 MINUTES. DISCUSSED TRANSFER WITH FAMILY WHO IS IN AGREEMENT WITH; PATIENT HAS BEEN ACCEPTED TO [facility] PENDING AN AVAILABLE BED. - Past Medical Family Social History Past Med/Fam/Surg Hx: No changes since H&P Allergies: Allergies No Known Drug Allergies Allergy (Verified 08/04/21 14:38) - Review of Systems ROS: No change since H&P - Vital Signs and I&O's Vital Signs: Temperature 97.4 F Pulse Rate [Left Brachial] 86 Pulse Rate 86 Respiratory Rate 26 Blood Pressure [Left Arm] 97/68 Blood Pressure [Right Arm] 97/59 Blood Pressure 150/70 O2 Sat by Pulse Oximetry 88 Intake and Output: Intake & Output 08/25/21 08/26/21 08/27/21 08/28/21 23:59 23:59 23:59 23:59 Intake Total 2659 / 2659 3780 / 3780 4005 / 4005 611 / 611 Output Total 3275 / 3275 3300 / 3300 2975 / 2975 1200 / 1200 Balance -616 / -616 480 / 480 1030 / 1030 -589 / -589 - Physical Exam Oriented: Other (intubated, sedated.) Eyes: Normal Ear: Normal Nose: Normal Throat: Dry Respiratory: Diminished, Rhonchi (mechanical ventilation) Cardiovascular: Normal. negative: Edema : Normal Auscultation: Bowel Sounds: Normal Tenderness: Normal Skin: Decreased Turgur Musculoskeletal: Back:Lumbar Psychiatric: Other (sedated) Speech Pattern: Artificially Ventilated - Laboratory and Diagnostics Result Diagrams: 08/28/21 04:32 08/28/21 04:32 Labs: 08/27/21 22:35 Sputum - Endotracheal Wash - Final 08/17/21 12:42 Blood Blood Culture - Final 08/17/21 12:36 Blood Blood Culture - Final 08/17/21 14:25 Sputum - Expectorated Sputum Sputum Culture - Final 08/17/21 14:25 Sputum - Expectorated Sputum - Final Laboratory WBC 11.6 X10^3/uL (3.6-10.0) H 08/28/21 04:32 RBC 3.91 X10^6/uL (4.7-6.0) L 08/28/21 04:32 Hgb 11.8 g/dL (13.5-18.0) L 08/28/21 04:32 Hct 35.0 % (42.0-54.0) L 08/28/21 04:32 MCV 89.3 fL (80.0-100.0) 08/28/21 04:32 MCH 30.2 pg (27.0-34.0) 08/28/21 04:32 MCHC 33.9 g/dL (33.0-35.0) 08/28/21 04:32 RDW 13.1 % (11.6-16.5) 08/28/21 04:32 Plt Count 110 X10^3/uL (150.0-450.0) L 08/28/21 04:32 Plt Count Comment Decreased (ADEQUATE) 08/28/21 04:32 MPV 10.7 fL (7.4-11.0) 08/28/21 04:32 Neut % (Auto) 93.3 % (42.0-75.0) H 08/28/21 04:32 Lymph % (Auto) 2.3 % (21.0-51.0) L 08/28/21 04:32 Humphreys % (Auto) 4.3 % (0.0-13.0) 08/28/21 04:32 Eos % (Auto) 0.0 % (0.9-2.9) L 08/28/21 04:32 Baso % (Auto) 0.1 % (0.2-1.0) L 08/28/21 04:32 Neut # (Auto) 10.8 x10^3/uL (2.2-4.8) H 08/28/21 04:32 Lymph # (Auto) 0.3 X10^3/uL (1.3-2.9) L 08/28/21 04:32 Humphreys # (Auto) 0.5 x10^3/uL (0.3-0.8) 08/28/21 04:32 Eos # (Auto) 0.0 x10^3/uL (0.0-0.2) 08/28/21 04:32 Baso # (Auto) 0.0 X10^3/uL (0.0-0.1) 08/28/21 04:32 Absolute Nucleated RBC 0.0 /100WBC 08/28/21 04:32 Total Counted 100 08/28/21 04:32 Neutrophils % (Manual) 87 % (39-76) H 08/28/21 04:32 Band Neutrophils % 6 % (0-10) 08/28/21 04:32 Lymphocytes % (Manual) 3 % (13-43) L 08/28/21 04:32 Monocytes % (Manual) 4 % (4-9) 08/28/21 04:32 Plt Morphology Comment Normal (NORMAL) 08/28/21 04:32 RBC Morphology Normal (NORMAL) 08/28/21 04:32 PT 14.1 SECONDS (11.8-14.3) 08/20/21 19:00 INR Target Range - 08/20/21 19:00 INR 1.14 (0.8-1.3) 08/20/21 19:00 APTT 66.5 SECONDS (22.9-36.5) H 08/21/21 20:56 PTT Comment - 08/21/21 20:56 D-Dimer 2.97 ug/ml (0.0-0.57) H* 08/27/21 04:25 Sample Site Lrad 08/28/21 05:29 ABG pH 7.440 (7.35-7.45) 08/28/21 05:29 ABG pCO2 76.0 mmHg (35.0-45.0) H* 08/28/21 05:29 ABG pO2 51.0 mmHg (80.0-100.0) L 08/28/21 05:29 ABG HCO3 51.6 mmol/L (22-26) H* 08/28/21 05:29 ABG O2 Saturation 87.0 % (90-100) L 08/28/21 05:29 ABG Base Excess 23.0 mmol/L (-2.0-2.0) H 08/28/21 05:29 Nakul Test Pos 08/28/21 05:29 A-a Gradient 567.0 mmHg 08/28/21 05:29 FiO2 100.0 08/28/21 05:29 Blood Gas Comments Cj well-mtf 08/28/21 05:29 Sodium 143 mmol/L (136-145) 08/28/21 04:32 Corrected Sodium 144 mmol/L (136-145) 08/28/21 04:32 Potassium 5.2 mmol/L (3.5-5.1) H 08/28/21 04:32 Chloride 103 mmol/L (98-107) 08/28/21 04:32 Carbon Dioxide 42.2 mmol/L (21-32) H* 08/28/21 04:32 BUN 27 mg/dL (7-18) H 08/28/21 04:32 Creatinine 0.56 mg/dL (0.70-1.30) L 08/28/21 04:32 Est GFR (MDRD) Af Amer > 60 (>60) 08/28/21 04:32 Est GFR (MDRD) Non-Af > 60 (>60) 08/28/21 04:32 Glucose 135 mg/dL (65-99) H 08/28/21 04:32 POC Glucose (mg/dL) 278 mg/dL (65-99) H 08/28/21 11:18 Hemoglobin A1c 7.4 % 08/17/21 10:05 Calcium 8.5 mg/dL (8.5-10.1) 08/28/21 04:32 Corrected Calcium 10.3 mg/dL (8.5-10.1) H 08/28/21 04:32 Magnesium 2.7 mg/dL (1.7-2.9) 08/28/21 04:32 Ferritin 2697 ng/mL (26-388) H 08/20/21 15:40 Total Bilirubin 0.60 mg/dL (0.2-1.0) 08/28/21 04:32 AST 26 Units/L (15-37) 08/28/21 04:32 ALT 53 Units/L (12-78) 08/28/21 04:32 Alkaline Phosphatase 120 Units/L (46-116) H 08/28/21 04:32 Creatine Kinase 87 Units/L (39-308) 08/17/21 10:05 CK-MB (CK-2) 1.9 ng/mL (0-4.0) 08/17/21 10:05 CK/CKMB % Calc 2.2 % (<4) 08/17/21 10:05 Troponin I < 0.02 ng/mL (0-1.5) 08/17/21 10:05 C-Reactive Protein 33.90 mg/L (0-3.0) H 08/27/21 04:25 B-Natriuretic Peptide 69.0 pg/mL (0-79) 08/27/21 04:25 Total Protein 5.1 g/dL (6.4-8.2) L 08/28/21 04:32 Albumin 1.7 g/dL (3.4-5.0) L 08/28/21 04:32 Globulin 3.4 g/dL (2.5-4.5) 08/28/21 04:32 Albumin/Globulin Ratio 0.5 Ratio (1.1-2.1) L 08/28/21 04:32 Specimen Type Catherized urine 08/20/21 11:56 Urine Color Straw (YELLOW) 08/20/21 11:56 Urine Appearance Clear (CLEAR) 08/20/21 11:56 Urine pH 7.0 (5.0 - 8.0) 08/20/21 11:56 Ur Specific [place] 1.010 (1.000-1.030) 08/20/21 11:56 Urine Protein Negative (NEGATIVE) 08/20/21 11:56 Urine Glucose (UA) 1+ (NEGATIVE) 08/20/21 11:56 Urine Ketones Negative (NEGATIVE) 08/20/21 11:56 Urine Occult Blood 1+ (NEGATIVE) 08/20/21 11:56 Urine Nitrite Negative (NEGATIVE) 08/20/21 11:56 Urine Bilirubin Negative (NEGATIVE) 08/20/21 11:56 Urine Urobilinogen Normal (NORMAL) 08/20/21 11:56 Ur Leukocyte Esterase Negative (NEGATIVE) 08/20/21 11:56 Urine RBC 5-10 /HPF (0-3) A 08/20/21 11:56 Urine WBC None seen /HPF (0-5) 08/20/21 11:56 Ur Squamous Epith Cells Negative /HPF (NEGATIVE) 08/20/21 11:56 Amorphous Sediment 1+ /HPF (NEGATIVE) 08/17/21 12:12 Urine Bacteria Negative /HPF (NEGATIVE) 08/20/21 11:56 Coarse Granular Casts Rare /HPF (NEGATIVE) 08/17/21 12:12 Urine Mucus Few /HPF (NEGATIVE) 08/17/21 12:12 Ur Culture Indicated? No/not indicated 08/20/21 11:56 Acetone, Semi-Quant Negative (NEGATIVE) 08/17/21 10:05 SARS-CoV-2 (PCR) Negative (NEGATIVE) 08/17/21 11:37 Influenza Type A (PCR) Negative (NEGATIVE) 08/17/21 11:37 Influenza Type B (PCR) Negative (NEGATIVE) 08/17/21 11:37 RSV (PCR) Negative (NEGATIVE) 08/17/21 11:37 SARS CoV-2 RNA Rapid ERA Positive (NEGATIVE) A 08/20/21 21:19 - Plan (1) Pneumonia due to COVID-19 virus Status: Acute Plan: IV abx and steroids, duo nebs, repeat ABG, labs, CXR in am. Mechanical ventilation. PENDING TRANSFER TO [facility] (2) Acute hypoxemic respiratory failure due to COVID-19 Status: Acute Plan: as above (3) Acute respiratory distress Status: Acute Plan: HX OF COVID 19 PNEUMONIA WITH HYPOXIA. ADMIT, CARDIAC MONITORING, SUPPLEMENTAL O2. IV HYDRATION, CTA ON ADMISSION IN ER NEGATIVE FOR PE. PT/RT/OT (4) Hypoxia Status: Acute Plan: ABOVE (5) Thrombocytopenia Status: Acute Plan: HEPARIN DISCONTINUED; eliquis 5mg po bid (6) Acute respiratory distress syndrome (ARDS) Status: Acute
[2021-08-29] MEDS ORDERED: REMDESIVIR 100 MG in NS 250 ML IV 250 ML IV SCH (09:00)
== END 2021-08-28 16:55 | disposition short-term general hospital (02) | DRG 177 ==
LOC: ER 09:14 → MED/SURG 12:44 → ICU 08-20 23:50
PROVIDERS: ADMIT Internal Medicine; ATTEND Internal Medicine
DX: Z78.1 Physical restraint status; Z86.16 Personal history of COVID-19; M19.90 Unspecified osteoarthritis, unspecified site; R26.89 Other abnormalities of gait and mobility; J96.01 Acute respiratory failure with hypoxia; R79.82 Elevated C-reactive protein (CRP); I10 Essential (primary) hypertension; U07.1 COVID-19; J12.82 Pneumonia due to coronavirus disease 2019; I87.2 Venous insufficiency (chronic) (peripheral); D69.6 Thrombocytopenia, unspecified; R06.02 Shortness of breath